=== PATIENT | male | born 1945 | race African-American/Black ===

== ENCOUNTER 2020-03-18 16:14 | Inpatient (IN) | payer MEDICARE ==
[~2020-03-18] VITALS: Ht 182.9 cm; Wt 94.0 kg
--- NOTE | 2020-03-18 17:28 | PHYS DOC ---
General Adult EDM: Chief Complaint: WEAKNESS/GENERALIZED HPI: HPI: 74-year-old male past medical history significant for hypertension, hyperlipidemia and former tobacco dependence (no official copd diagnosis, no oxygen or steroid use), presents to the ED with complaints of generalized weakness and dysuria for the past 2 days. Patient reports he tested positive for covid on February 22- with who also tested positive at an outpatient testing site. Patient reports he was retested this past week and it was negative. Last hospitalization was a few years ago for concussion, was transferred to [facility]. Denies any falls or head injury. Reports chronic midline back pain "for years." EMR diagnosis of secondary polycythemia -pt has not heard of this. Spoke with who states patient has fallen twice over the past few days and has been acting more lethargic, confused and not eating. No history of congestive heart failure. Review of systems: Denies associated fever, chills, cough, sore throat, dyspnea, chest pain/pressure/tightness, n/v/d/c, abdominal pain, hemoptysis, unilateral leg swelling, hematuria, flank pain, syncope, neck stiffness or headache. pmd-Mary Lou Murrell ([facility],BAKARI Garvey DO) Physical Exam: PE: Constitutional: hypotension, ill appearing HENT: Normocephalic, atraumatic, bilateral external ears normal, oropharynx dry, no oral exudates, nose normal. [] Eyes: EOMI, conjunctiva normal, no discharge. [] Neck: Normal range of motion, no tenderness, supple, no stridor. [] Cardiovascular: tachycardic-100 bpm, no murmur [] Lungs & Thorax: Bilateral breath sounds clear to auscultation [] moderate tachypnea with subcostal retractions Abdomen: Bowel sounds normal, soft, no tenderness, no masses, no pulsatile masses. [] fluid wave, coffee ground emesis Skin: Warm, dry, no erythema, no rash. [] Back: No tenderness, no CVA tenderness. [] Extremities: No tenderness, no cyanosis, no clubbing, ROM intact, no edema. [] Neurologic: Alert and oriented X 3-alert to my/month/year/situation, normal motor function, normal sensory function, no focal deficits noted. [] Psychologic: Affect normal, judgement normal, mood normal. [] ([facility],BAKARI M DO) EKG: EKG: nsr 92 bpm, QRS 146, right bundle branch block present, QTc 490, no T wave inversions, no ST elevations or ST depressions, left axis deviation (BAKARI MOYA DO) Radiology/Procedures: Radiology/Procedures: Indication: Vascular access Consent: The patient provided consent for this procedure. Procedure: The patient was positioned appropriately and the skin over the right internal jugular vein was prepped and draped in a sterile fashion. Local anesthesia was used. Ultrasound guidance utilized. A large bore needle was used to identify the vein. A guide wire was then inserted into the vein through the needle. A triple lumen catheter was then inserted into the vessel over the guide wire using the Seldinger technique. All ports showed good, free flowing blood return and were flushed with saline solution. The catheter was then securely fastened to the skin with sutures and covered with a sterile dressing. A post procedure X-ray was ordered. The patient tolerated the procedure well. Complications: none. [][] Critical care time was 45 minutes exclusive of procedures. Impression: Concern for right sided superimposed pneumonia in the setting of multiorgan failure and hypotension with coffee-ground emesis, started on PPI drip for upper GI bleeding. Central line placed. CT images pending-to eval for trauma vs pe (recent covid). Patient started on IV fluids and broad-spectrum antibiotics. Patient was allowed to Dr. Ness at shift change. (BAKARI MOYA DO) Course & Med Decision Making: Course & Med Decision Making Pertinent Labs and Imaging studies reviewed. (See chart for details) [] (BAKARI MOYA DO) Course & Med Decision Making Assumed care of patient at checkout. At checkout CT head, chest, abdomen, pelvis were pending and are negative. Patient is requiring Levophed. He appears to be in septic shock. He will be admitted for further care and evaluation to Dr. Hi (YASMANY NESS MD) Kiesha Disclaimer: Kiesha Disclaimer: This electronic medical record was generated, in whole or in part, using a voice recognition dictation system. (BAKARI MOYA DO) Departure Departure Impression: Primary Impression: Septic shock Additional Impression: Kidney failure Disposition: ADMITTED INPATIENT Condition: CRITICAL Referrals: MARY LOU HOYT MD (PCP) Justicifation of Admission Dx: Justifications for Admission: Justification of Admission Dx: Yes Aspiration Pneumonia: Hemodynamic Instability (BAKARI MOYA DO) Justification of Admission Dx: Yes (YASMANY NESS MD) BAKARI MOYA DO Mar 18, 2020 17:28 YASMANY NESS MD Mar 18, 2020 21:29
[2020-03-18] MEDS ORDERED: cefTRIAXone IV Push 1 GM VIAL. IVP ONE (17:30)
[2020-03-18] MEDS ORDERED: IV NORMAL SALINE 1000ML BAG 1,000 ML IV ONE ×3 (17:30→17:45)
[2020-03-18] MEDS ORDERED: PIPERACILLIN/TAZOBACTAM 4.5 GM in IV NORMAL SALINE 100ML 100 ML IV ONE (17:45)
[2020-03-18] MEDS ORDERED: VANCOMYCIN IV ONE (18:00)
[2020-03-18] MEDS ORDERED: NORMAL SALINE IV ONE (18:00)
[2020-03-18 18:10] LABS: BASO % 0 % (0-3); EOS % 0 % (0-3); HEMATOCRIT 41.8 % (39.0-53.0); HEMOGLOBIN 14.1 g/dL (13.0-17.5); LYMPH % 6 % (24-48); MEAN CORPUSCULAR HEMOGLOBIN 34 pg (25-35); MEAN CORPUSCULAR HGB CONC 34 g/dL (31-37); MEAN CORPUSCULAR VOLUME 101 fL (79-100); MONO # 0.7 x10^3/uL (0.0-1.1); MONO % 4 % (0-9); NEUT # 15.7 x10^3/uL (1.8-7.7); NEUT % 90 % (31-73); PLATELET COUNT 204 x10^3/uL (140-400); RED BLOOD COUNT 4.13 x10^6/uL (4.30-5.70); RED CELL DISTRIBUTION WIDTH 15.1 % (11.5-14.5); WHITE BLOOD COUNT 17.5 x10^3/uL (4.0-11.0)
[2020-03-18 18:18] LABS: PROTHROMBIN TIME PATIENT 17.6 SEC (11.7-14.0)
[2020-03-18 18:34] LABS: CALCIUM 8.4 mg/dL (8.5-10.1); CREATININE 3.9 mg/dL (0.7-1.3); GFR 18.3; POTASSIUM 4.7 mmol/L (3.5-5.1)
[2020-03-18 18:39] LABS: ALBUMIN 2.1 g/dL (3.4-5.0); DIRECT BILIRUBIN 0.4 mg/dL (0.0-0.2); TOTAL BILIRUBIN 0.7 mg/dL (0.2-1.0)
[2020-03-18] MEDS ORDERED: PANTOPRAZOLE SODIUM IV DRIP 80 MG in IV NORMAL SALINE 100ML 100 ML IV SCH (18:45)
[2020-03-18] MEDS ORDERED: PANTOPRAZOLE IV PUSH 40 MG VIAL. IVP ONE (18:45)
[2020-03-18] MEDS ORDERED: VANCOMYCIN 2 GM in IV NORMAL SALINE 500ML BAG 500 ML IV ONE (18:45)
[2020-03-18] MEDS ORDERED: ONDANSETRON PF 4 MG/2 ML VIAL. IVP ONE (18:45)
[2020-03-18 18:50] LABS: % BANDS 5 % (0-9); % LYMPHS 4 % (24-48); % MONOS 2 % (0-10); % SEGS 89 % (35-66)
[2020-03-18 18:51] LABS: PLT ESTIMATE ADEQUATE (ADEQUATE); TOXIC VACUOLATION SLIGHT
--- NOTE | 2020-03-18 19:34 | RAD ---
Exam: Chest one view INDICATION: Weakness TECHNIQUE: Frontal view of the chest Comparisons: None FINDINGS: The cardiomediastinal silhouette and pulmonary vessels are within normal limits. Hazy opacity at the right lung base. No pleural effusion. IMPRESSION: Hazy opacity at the right lung base, may represent atelectasis versus developing consolidative process. Electronically signed by: Giuseppe Potts MD (03/18/2020 7:31 PM) [id number]
[2020-03-18] MEDS ORDERED: NOREPINEPHRINE VIAL 8 MG in IV DEXTROSE 5% 250 ML IV ONE (20:00)
--- NOTE | 2020-03-18 20:16 | RAD ---
CT HEAD WO CONTRAST History: Reason: fall / Spl. Instructions: / History: . Pain. Comparison: May 22, 2013 Technique: Noncontrast CT imaging was performed of the head. Exposure: One or more of the following individualized dose reduction techniques were utilized for this examination: 1. Automated exposure control 2. Adjustment of the mA and/or kV according to patient size 3. Use of iterative reconstruction technique. Findings: No intracranial hemorrhage. No mass effect. No hydrocephalus. Bilateral anterior inferior frontal encephalomalacia related to prior trauma. Additional foci of decreased attenuation within the hemispheric white matter, most often due to chronic microvascular ischemia. Imaged orbits are unremarkable. Imaged paranasal sinuses and mastoid air cells are clear. No acute calvarial fracture. Impression: 1. No acute intracranial abnormality. 2. Bilateral anterior inferior frontal encephalomalacia. Electronically signed by: Curtis Blanco DO (03/18/2020 8:13 PM) [facility]
--- NOTE | 2020-03-18 20:20 | RAD ---
Exam: CT of chest, abdomen and pelvis without contrast INDICATION: Weakness, back pain TECHNIQUE: Sequential axial images through the chest, abdomen and pelvis obtained without IV contrast. Sagittal and coronal reformatted images were reconstructed from the axial data and reviewed. Comparisons: Chest x-ray same day FINDINGS: Visualized portions of the thyroid are unremarkable. No enlarged mediastinal lymph nodes are identified. Heart size is normal. Trace pericardial effusion. Mild coronary artery calcifications. Thoracic aorta has a normal course and caliber. Pulmonary artery is not enlarged. Airways are patent. Mild bronchial wall thickening is noted. There is moderate to severe centrilobular emphysematous change noted predominantly at the upper lungs. No consolidation or pneumothorax. There are strandy opacities at the right lung base. No suspicious lung nodules. No pleural effusion or thickening. Evaluation of the solid abdominal organs is limited secondary to noncontrast technique. Liver, spleen, pancreas and adrenals are unremarkable. Gallbladder surgically absent. No perinephric inflammation or hydronephrosis. Nonobstructing 2 mm calculus at the mid left kidney. No ureteral calculi are identified. Bladder is decompressed not well evaluated. Prostate is not enlarged. Large and small bowel are unremarkable. Appendix is nonidentified. No free intra-abdominal air or fluid. No obstruction. Abdominal aorta has a normal course and caliber. No enlarged abdominal lymph nodes are identified. No suspicious osseous lesions or acute fractures. IMPRESSION: 1. No acute process identified within the chest, abdomen or pelvis. 2. Strandy opacities at the right lung base likely representing scarring or atelectasis. 3. Nephrolithiasis Exposure: One or more of the following in the visualized dose reduction techniques were utilized for this examination: 1. Automated exposure control 2. Adjustment of the MA and/or KV according to patient size 3. Use of iterative of reconstructive technique Electronically signed by: Giuseppe Potts MD (03/18/2020 8:17 PM) [id number]
[2020-03-19] VITALS (28 sets, daily range): BP systolic 73–117; BP diastolic 51–73
[2020-03-19] MEDS ORDERED: IV NORMAL SALINE 500ML BAG 500 ML IV ONE (01:00)
[2020-03-19] MEDS: IV NORMAL SALINE 1000ML BAG 1,000 ML IV SCH ×3 (01:27→21:13)
[2020-03-19] MEDS: NOREPINEPHRINE VIAL 8 MG in IV DEXTROSE 5% 250 ML IV PRN ×5 (02:08→22:06)
--- NOTE | 2020-03-19 02:21 | EKG ---
[facility] [address] [place] [address] Test Date: 2020-03-19 Test Time: 02:12:47 Pat Name: YURI WILLAMS Department: Room: 108 1 Gender: M [employer]ard Mixer: JAVIER : 1945 Requested By: HARMAN CALIXTO Order Number: [id number] Reading MD: Measurements Intervals [place] Rate: 79 P: 90 MI: 200 QRS: -80 QRSD: 86 T: 74 QT: 428 QTc: 492 Interpretive Statements SINUS RHYTHM ATRIAL PREMATURE COMPLEX(ES) ABNORMAL LEFT AXIS DEVIATION R-S TRANSITION ZONE IN V LEADS DISPLACED TO THE RIGHT LEFT ANTERIOR FASCICULAR BLOCK QRS(T) CONTOUR ABNORMALITY CONSIDER ANTEROSEPTAL MYOCARDIAL DAMAGE T ABNORMALITY IN HIGH LATERAL LEADS PROLONGED QT ABNORMAL ECG RI6.02 No previous ECG available for comparison
--- NOTE | 2020-03-19 02:50 | NUR ---
Patient arrived to ICU room 108 from the ED. Report received from PATRICIA Mckeon from the ED. Upon arrival patient is alert and oriented. Poor historian of current and pmhx but answers questions appropriately. Unable to clarify dates of positive covid test. States he has taken several but unable to remember dates. called and stated last result on February 22 was positive and was off of quarantine on March 11. No hospital admit. 3 days ago patient began having some generalized weakness and poor appetite. Denies recent fevers and afebrile at this time. No complaint of pain or soa. IVFB and abx given in ED. Levophed and protonix drip infusing. No urine output on and prior to admit. Bladder scan in ICU had [address] Hi notified of admit and patient condition. Orders received. Consult for ID. Will continue to monitor.
[2020-03-19 03:54] LABS: HEMATOCRIT 38.1 % (39.0-53.0); HEMOGLOBIN 12.8 g/dL (13.0-17.5); RED BLOOD COUNT 3.78 x10^6/uL (4.30-5.70); RED CELL DISTRIBUTION WIDTH 15.2 % (11.5-14.5); WHITE BLOOD COUNT 19.7 x10^3/uL (4.0-11.0)
[2020-03-19 04:04] LABS: CALCIUM 7.5 mg/dL (8.5-10.1); CREATININE 3.3 mg/dL (0.7-1.3); GFR 22.2; POTASSIUM 4.5 mmol/L (3.5-5.1)
[2020-03-19 04:15] LABS: BILIRUBIN,URINE SMALL (NEG); CLARITY,URINE CLOUDY; COLOR,URINE AMBER; NITRITE,URINE NEGATIVE (NEG); PROTEIN,URINE 100 mg/dL (NEG-TRACE); UROBILINOGEN,URINE 0.2 mg/dL (0.2 mg/dL)
[2020-03-19 04:30] LABS: AMORPHOUS SEDIMENT,UR PRESENT /HPF; BACTERIA,URINE 0 /HPF (0-FEW); GRANULAR CASTS,URINE OCCASIONAL /HPF; HYALINE CASTS, URINE FEW /HPF; RBC,URINE OCC /HPF (0-2); SQUAMOUS EPITHELIAL CELL,UR FEW /LPF
--- NOTE | 2020-03-19 07:20 | PDOC ---
Infectious Disease Note Vital Sign Vital Signs Vital Signs Date Time Temp Pulse Resp B/P (MAP) Pulse Ox O2 Delivery O2 Flow Rate FiO2 03/19/20 06:00 82 14 92/65 (74) 98 Room Air 03/19/20 04:00 97.7 97.7 Labs Lab Laboratory Tests Test 03/18/20 17:50 03/18/20 21:40 03/19/20 03:15 03/19/20 03:45 White Blood Count 17.5 x10^3/uL (4.0-11.0) 19.7 x10^3/uL (4.0-11.0) Red Blood Count 4.13 x10^6/uL (4.30-5.70) 3.78 x10^6/uL (4.30-5.70) Hemoglobin 14.1 g/dL (13.0-17.5) 12.8 g/dL (13.0-17.5) Hematocrit 41.8 % (39.0-53.0) 38.1 % (39.0-53.0) Mean Corpuscular Volume 101 fL (79-100) 101 fL (79-100) Mean Corpuscular Hemoglobin 34 pg (25-35) 34 pg (25-35) Mean Corpuscular Hemoglobin Concent 34 g/dL (31-37) 34 g/dL (31-37) Red Cell Distribution Width 15.1 % (11.5-14.5) 15.2 % (11.5-14.5) Platelet Count 204 x10^3/uL (140-400) 222 x10^3/uL (140-400) Neutrophils (%) (Auto) 90 % (31-73) Lymphocytes (%) (Auto) 6 % (24-48) Monocytes (%) (Auto) 4 % (0-9) Eosinophils (%) (Auto) 0 % (0-3) Basophils (%) (Auto) 0 % (0-3) Neutrophils # (Auto) 15.7 x10^3/uL (1.8-7.7) Lymphocytes # (Auto) 1.0 x10^3/uL (1.0-4.8) Monocytes # (Auto) 0.7 x10^3/uL (0.0-1.1) Eosinophils # (Auto) 0.0 x10^3/uL (0.0-0.7) Basophils # (Auto) 0.0 x10^3/uL (0.0-0.2) Segmented Neutrophils % 89 % (35-66) Band Neutrophils % 5 % (0-9) Lymphocytes % 4 % (24-48) Monocytes % 2 % (0-10) Toxic Vacuolation Slight Platelet Estimate Adequate (ADEQUATE) Prothrombin Time 17.6 SEC (11.7-14.0) Prothromb Time International Ratio 1.5 (0.8-1.1) Activated Partial Thromboplast Time 47 SEC (24-38) Sodium Level 134 mmol/L (136-145) 134 mmol/L (136-145) Potassium Level 4.7 mmol/L (3.5-5.1) 4.5 mmol/L (3.5-5.1) Chloride Level 97 mmol/L (98-107) 102 mmol/L (98-107) Carbon Dioxide Level 22 mmol/L (21-32) 20 mmol/L (21-32) Anion Gap 15 (6-14) 12 (6-14) Blood Urea Nitrogen 40 mg/dL (8-26) 43 mg/dL (8-26) Creatinine 3.9 mg/dL (0.7-1.3) 3.3 mg/dL (0.7-1.3) Estimated GFR (Cockcroft-Gault) 18.3 22.2 Glucose Level 188 mg/dL (70-99) 218 mg/dL (70-99) Lactic Acid Level 4.6 mmol/L (0.4-2.0) 3.5 mmol/L (0.4-2.0) Calcium Level 8.4 mg/dL (8.5-10.1) 7.5 mg/dL (8.5-10.1) Magnesium Level 2.0 mg/dL (1.8-2.4) 2.0 mg/dL (1.8-2.4) Total Bilirubin 0.7 mg/dL (0.2-1.0) Direct Bilirubin 0.4 mg/dL (0.0-0.2) Aspartate Amino Transf (AST/SGOT) 50 U/L (15-37) Alanine Aminotransferase (ALT/SGPT) 58 U/L (16-63) Alkaline Phosphatase 63 U/L (46-116) Creatine Kinase 382 U/L (39-308) Troponin I Quantitative 0.398 ng/mL (0.000-0.055) 1.273 ng/mL (0.000-0.055) XS-Gff-O-Type Natriuretic Peptide 37401 pg/mL (0-449) Total Protein 6.0 g/dL (6.4-8.2) Albumin 2.1 g/dL (3.4-5.0) Urine Collection Type Unknown Urine Color Viktoriya Urine Clarity Cloudy Urine pH 5.0 (<5.0-8.0) Urine Specific [place] 1.025 (1.000-1.030) Urine Protein 100 mg/dL (NEG-TRACE) Urine Glucose (UA) Negative mg/dL (NEG) Urine Ketones (Stick) Negative mg/dL (NEG) Urine Blood Trace (NEG) Urine Nitrite Negative (NEG) Urine Bilirubin Small (NEG) Urine Urobilinogen Dipstick 0.2 mg/dL (0.2 mg/dL) Urine Leukocyte Esterase Negative (NEG) Urine RBC Occ /HPF (0-2) Urine WBC 5-10 /HPF (0-4) Urine Squamous Epithelial Cells Few /LPF Urine Amorphous Sediment Present /HPF Urine Bacteria 0 /HPF (0-FEW) Urine Hyaline Casts Few /HPF Urine Granular Casts Occasional /HPF Urine Mucus Mod /LPF Micro IMPRESSION: Hazy opacity at the right lung base, may represent atelectasis versus developing consolidative process. IMPRESSION: 1. No acute process identified within the chest, abdomen or pelvis. 2. Strandy opacities at the right lung base likely representing scarring or atelectasis. 3. Nephrolithiasis Objective Assessment Hypotension Leukocytosis Elevated Troponin Right lung infiltrate CRAIG Coffee ground emesis COVID by report 02/22 with completed quarantine 03/11 reported neg since Neuropathy Plan Plan of Care Cont Zosyn Add Doxy Hold further Vanc Add Procalcitonin Renal consult/GI consult Cardiology consulted LE arterial dopplers F/u labs and cults D/w nursing 35 mins CC time Thank you # [phone] Addendum Nursing now reporting some confusion about when negative test was obtained ER states post quarantine but thought maybe prior to + test so will repeat COVID test ONEYDA JENSEN MD Mar 19, 2020 07:20
[2020-03-19] MEDS: PIPERACILLIN/TAZOBACTAM 2.25 GM in IV NORMAL SALINE 50ML 50 ML IV SCH ×3 (07:50→17:28)
[2020-03-19] MEDS: PANTOPRAZOLE IV PUSH 40 MG VIAL. IVP SCH (07:50)
--- NOTE | 2020-03-19 08:05 | CONS ---
DATE OF CONSULTATION: 03/19/2020 INFECTIOUS DISEASE CONSULTATION PATIENT'S ROOM: ICU 8. REQUESTING PHYSICIAN: Joyce Hi DO REASON FOR CONSULTATION: Questionable sepsis and leukocytosis. HISTORY OF PRESENT ILLNESS: The patient is a pleasant 74-year-old gentleman with a history of tobacco abuse, recently reportedly tested positive for COVID on 02/22 and discontinued quarantine on the . There is question whether he has had a negative test since that time. He states for 2 or 3 days, he has been having sweats, decreased appetite and decreased urine output and presented to [facility] Emergency Room on the evening of the with weakness. Additionally, according to nurse, states that he has fallen. He has been afebrile since his presentation. He had a temperature of 99.6 rectally, but had a blood pressure 66/31 on arrival. Additionally, he states after his stomach was palpated, he felt nauseated and vomited and had blood in his vomit. His creatinine was 3.9 on arrival. His BNP was 27,958. His lactic was elevated at 4.6. His troponin has increased to 1.273. Chest x-ray was pertained and showed a hazy opacity at the right lung base. CT scan of the head showed no acute intracranial abnormality. CT scan of the abdomen and pelvis without contrast showed no acute process identified within the chest, abdomen and pelvis, but he did have some stranding opacities at the right lung base likely representing scar or atelectasis and he had nephrolithiasis. He was given one dose of vancomycin, a dose of Zosyn and has been admitted to the Intensive Care Unit. Currently, he is lying in bed. He is feeling better. He has no fevers or chills. He denies any headaches. He has no sinus issues. No sore throat or cough. Denies any chest pain. Denies any reflux. Denies any abdominal pain per se. Did have decreased urine output, but finally made some urine. He has had no diarrhea, but he is a little bit constipated. Also, some neuropathy in his lower extremities has been present for quite some time. Denies any rashes or itches. PAST MEDICAL HISTORY: Positive for hypertension, hypercholesterolemia, neuropathy, also a question of some polycythemia. PAST SURGICAL HISTORY: Positive for cholecystectomy, appendectomy and double hernia repair. REVIEW OF SYSTEMS: Otherwise negative. ALLERGIES: No known drug allergies. SOCIAL HISTORY: He is still smoking. He is . He has no pets. 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 He does have 2 sons. One is a physician in [place]. FAMILY HISTORY: Noncontributory. CURRENT MEDICATIONS: Levophed has been ordered. He did receive Zosyn, vancomycin x 1, pantoprazole x 1. PHYSICAL EXAMINATION: VITAL SIGNS: Temperature currently 97.7, pulse 82, respirations 14, blood pressure 92/65, satting 98% on room air. CONSTITUTIONAL: He is a very pleasant gentleman. He is cooperative. He is lying. He is comfortable. He is answering questions. HEENT: Pupils equal and reactive, but appears as early cataracts. He has normal conjunctivae. Oral cavity, pharynx was clear. NECK: Supple, with no JVD. LUNGS: Clear to auscultation, no wheeze. HEART: S1, S2. ABDOMEN: Soft, no guarding, no rebound. Positive but decreased bowel sounds. EXTREMITIES: No clubbing, no edema. His extremities were cool to touch with decreased pulses bilaterally. SKIN: Warm to touch without generalized rash. NEUROLOGIC: Nonfocal, answering questions. Moves all extremities. PSYCHIATRIC: Affect is very pleasant. LABORATORY DATA: On arrival, white count was 17.5, currently is 19.7; hemoglobin of 12.8, down from 14.1; platelets of 222. Segs were 89, bands were 5. Creatinine is improved to 3.3. Glucose of 218. Lactic acid down to 3.5. Again, troponin of 1.273. AST was 50, ALT 58, alkaline phosphatase was 63. BNP-pro was reviewed in the history of present illness. Urinalysis without bacteria, 5-10 wbc's, nitrite and leukocyte esterase were negative. RADIOLOGY: Reviewed in the history of present illness. IMPRESSION: 1. Hypotension. 2. Leukocytosis. 3. Elevated troponin. 4. Right lung infiltrate. 5. Acute kidney injury. 6. Coffee-ground emesis. 7. History of COVID by report on 02/22 with completed quarantine and reported negative test since then. 8. Neuropathy. RECOMMENDATIONS: We will continue the Zosyn, but adjust for renal function. We will add doxycycline and hold further vancomycin, add a procalcitonin, although expected to be elevated with his renal failure. We will consult Renal as well as GI. This morning, Cardiology has been consulted. We will also obtain lower extremity Dopplers given his cool extremities and decreased pulses. Follow up labs and cultures. This was discussed with nursing. I spent 35 minutes critical care time. Dr. Hi, thank you for allowing me to participate in the patient's care. If you have any further questions, please do not hesitate to contact me. ONEYDA JENSEN MD DR: MIKE/brett JOB#: [id number] / [id number] MICHAEL
--- NOTE | 2020-03-19 08:36 | PDOC1 ---
History and Physical Date of Admission: Date of Admission DATE: 03/19/20 TIME: 08:25 Chief Complaint: Chief Complain: Generalized weakness History of Present Illness: HPI: Patient is a 74-year-old male with past medical history of hypertension, dyslipidemia, CAD with stents and history of tobacco dependence. He presents to the ED with complaints of generalized weakness for the past 2 days. Patient originally tested positive for COVID on February 22 and he remained quarantined for 2 weeks after with his who also was tested positive. Patient was retested this past week and it was negative. Patient's also stated that the patient has fallen twice in the past few days and has been appearing more lethargic, confused, and with loss of appetite. Patient also endorses vomiting some blood denies chest pain, abdominal pain, diarrhea, loss of smell, dysuria or bloody stools. Past Medical/Surgical History: PMH/PSH: Past Medical History * High Cholesterol * Hypertension Allergies: Allergies: Coded Allergies: No Known Drug Allergies (Unverified , 03/18/20) Family History: Family History: Reviewed and none reported Social History: Social History: He is still smoking. He is . He has no pets. 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 He does have 2 sons. One is a physician in [place]. Current Medications: Current Medications Current Medications Ceftriaxone Sodium (Rocephin) 1 gm 1X ONCE IVP ; Start 03/18/20 at 17:30; Stop 03/18/20 at 17:46; Status DC Sodium Chloride 1,000 ml @ 1,000 mls/hr 1X ONCE IV Last administered on 03/18/20at 17:35; Start 03/18/20 at 17:30; Stop 03/18/20 at 18:29; Status DC Sodium Chloride 1,000 ml @ 1,000 mls/hr 1X ONCE IV Last administered on 03/18/20at 18:04; Start 03/18/20 at 17:45; Stop 03/18/20 at 18:44; Status DC Sodium Chloride 1,000 ml @ 1,000 mls/hr 1X ONCE IV Last administered on 03/18/20at 18:05; Start 03/18/20 at 17:45; Stop 03/18/20 at 18:44; Status DC Piperacillin Sod/ Tazobactam Sod 4.5 gm/Sodium Chloride 100 ml @ 200 mls/hr 1X ONCE IV Last administered on 03/18/20at 18:10; Start 03/18/20 at 17:45; Stop 03/18/20 at 18:14; Status DC Vancomycin HCl 2.25 gm/Sodium Chloride 500 ml @ 250 mls/hr 1X ONCE IV ; Start 03/18/20 at 18:00; Stop 03/18/20 at 19:59; Status UNV Vancomycin HCl 2 gm/Sodium Chloride 500 ml @ 250 mls/hr 1X ONCE IV Last administered on 03/18/20at 18:11; Start 03/18/20 at 18:45; Stop 03/18/20 at 20:44; Status DC Ondansetron HCl (Zofran) 8 mg 1X ONCE IVP ; Start 03/18/20 at 18:45; Stop 03/18/20 at 18:46; Status DC Pantoprazole Sodium (PROTONIX VIAL for IV PUSH) 80 mg 1X ONCE IVP Last administered on 03/18/20at 18:42; Start 03/18/20 at 18:45; Stop 03/18/20 at 18:46; Status DC Pantoprazole Sodium 80 mg/ Sodium Chloride 100 ml @ 10 mls/hr Q10H IV Last administered on 03/18/20at 19:20; Start 03/18/20 at 18:45; Stop 03/19/20 at 01:30; Status DC Norepinephrine Bitartrate 8 mg/ Dextrose 258 ml @ 17.609 mls/ hr 1X ONCE IV ; Start 03/18/20 at 20:00; Stop 03/19/20 at 10:39 Sodium Chloride 1,000 ml @ 100 mls/hr Q10H IV Last administered on 03/19/20at 01:27; Start 03/19/20 at 02:00 Norepinephrine Bitartrate 8 mg/ Dextrose 258 ml @ 17.609 mls/ hr CONT PRN IV PER PROTOCOL Last administered on 03/19/20at 07:52; Start 03/19/20 at 01:00 Sodium Chloride 500 ml @ 500 mls/hr 1X ONCE IV Last administered on 03/19/20at 01:26; Start 03/19/20 at 01:00; Stop 03/19/20 at 01:59; Status DC Pantoprazole Sodium (PROTONIX VIAL for IV PUSH) 40 mg DAILYAC IVP Last administered on 03/19/20at 07:50; Start 03/19/20 at 07:30 Piperacillin Sod/ Tazobactam Sod 2.25 gm/Sodium Chloride 50 ml @ 100 mls/hr Q6HRS IV Last administered on 03/19/20at 07:50; Start 03/19/20 at 07:00 Doxycycline Hyclate 100 mg/ Dextrose 100 ml @ 50 mls/hr Q12HR IV ; Start 03/19/20 at 09:00 ROS: Review of Systems Review of System REVIEW OF SYSTEMS: GENERAL: Denies weakness SKIN: No bruising, hair changes or rashes. EYES: No blurred, double or loss of vision. NOSE AND THROAT: No history of nosebleeds, hoarseness or sore throat. HEART: No history of palpitations, chest pain or shortness of breath on exertion. LUNGS: Denies cough, hemoptysis, wheezing or shortness of breath. GASTROINTESTINAL: Denies changes in appetite, nausea, vomiting, diarrhea or constipation. GENITOURINARY: No history of frequency, urgency, hesitancy or nocturia. NEUROLOGIC: Denies history of numbness, tingling, or tremor. PSYCHIATRIC: No history of panic, anxiety or depression. ENDOCRINE: No history of heat or cold intolerance, polyuria or polydipsia. EXTREMITIES: Denies joint pain, pain on walking or stiffness. Physical Exam: Vital Signs: Vital Signs Date Time Temp Pulse Resp B/P (MAP) Pulse Ox O2 Delivery O2 Flow Rate FiO2 03/19/20 07:00 82 16 117/73 (88) 99 Room Air 03/19/20 04:00 97.7 97.7 Physcial Exam: GEN: No apparent distress. Alert and oriented HEENT: Normal cephalic, atraumatic, external auditory canals are patent EYES: Extraocular muscles are intact, pupil are equally round and reactive to light and accommodation MUSCULOSKELETAL: Well developed , well nourished, good range of motion ENDOCRINE: No thyromegaly was palpated LYMPHATICS: No cervical chain or axillary nodes were noted HEMATOPOIETIC: No bruising NECK: Supple, no JVD, no thyromegaly was noted LUNGS: Clear to auscultation in all lung smith without rhonchi or wheezing HEART: RRR, S!, S2 present. Peripheral pulses intact, no obvious murmurs noted ABDOMEN: Soft, nontender. Positive bowel sounds, no organomegaly, normal bowel sounds EXTREMITIES: Without clubbing, cyanosis, or edema. Pedal pulses intact. Negative Homans sign NEUROLOGIC: Normal speech and tone. A&O x 3, moves all extremities, no obvious focal deficits PSYCHIATRIC: Normal affect, normal mood. Stable SKIN: No ulcerations or rashes, good skin turgor, no jaundice VASCULAR: Good capillary refill, neurovascular bundle appears to be intact Labs: Labs: Laboratory Tests Test 03/18/20 17:50 03/18/20 21:40 03/19/20 03:15 03/19/20 03:45 White Blood Count 17.5 x10^3/uL (4.0-11.0) 19.7 x10^3/uL (4.0-11.0) Red Blood Count 4.13 x10^6/uL (4.30-5.70) 3.78 x10^6/uL (4.30-5.70) Hemoglobin 14.1 g/dL (13.0-17.5) 12.8 g/dL (13.0-17.5) Hematocrit 41.8 % (39.0-53.0) 38.1 % (39.0-53.0) Mean Corpuscular Volume 101 fL (79-100) 101 fL (79-100) Mean Corpuscular Hemoglobin 34 pg (25-35) 34 pg (25-35) Mean Corpuscular Hemoglobin Concent 34 g/dL (31-37) 34 g/dL (31-37) Red Cell Distribution Width 15.1 % (11.5-14.5) 15.2 % (11.5-14.5) Platelet Count 204 x10^3/uL (140-400) 222 x10^3/uL (140-400) Neutrophils (%) (Auto) 90 % (31-73) Lymphocytes (%) (Auto) 6 % (24-48) Monocytes (%) (Auto) 4 % (0-9) Eosinophils (%) (Auto) 0 % (0-3) Basophils (%) (Auto) 0 % (0-3) Neutrophils # (Auto) 15.7 x10^3/uL (1.8-7.7) Lymphocytes # (Auto) 1.0 x10^3/uL (1.0-4.8) Monocytes # (Auto) 0.7 x10^3/uL (0.0-1.1) Eosinophils # (Auto) 0.0 x10^3/uL (0.0-0.7) Basophils # (Auto) 0.0 x10^3/uL (0.0-0.2) Segmented Neutrophils % 89 % (35-66) Band Neutrophils % 5 % (0-9) Lymphocytes % 4 % (24-48) Monocytes % 2 % (0-10) Toxic Vacuolation Slight Platelet Estimate Adequate (ADEQUATE) Prothrombin Time 17.6 SEC (11.7-14.0) Prothromb Time International Ratio 1.5 (0.8-1.1) Activated Partial Thromboplast Time 47 SEC (24-38) Sodium Level 134 mmol/L (136-145) 134 mmol/L (136-145) Potassium Level 4.7 mmol/L (3.5-5.1) 4.5 mmol/L (3.5-5.1) Chloride Level 97 mmol/L (98-107) 102 mmol/L (98-107) Carbon Dioxide Level 22 mmol/L (21-32) 20 mmol/L (21-32) Anion Gap 15 (6-14) 12 (6-14) Blood Urea Nitrogen 40 mg/dL (8-26) 43 mg/dL (8-26) Creatinine 3.9 mg/dL (0.7-1.3) 3.3 mg/dL (0.7-1.3) Estimated GFR (Cockcroft-Gault) 18.3 22.2 Glucose Level 188 mg/dL (70-99) 218 mg/dL (70-99) Lactic Acid Level 4.6 mmol/L (0.4-2.0) 3.5 mmol/L (0.4-2.0) Calcium Level 8.4 mg/dL (8.5-10.1) 7.5 mg/dL (8.5-10.1) Magnesium Level 2.0 mg/dL (1.8-2.4) 2.0 mg/dL (1.8-2.4) Total Bilirubin 0.7 mg/dL (0.2-1.0) Direct Bilirubin 0.4 mg/dL (0.0-0.2) Aspartate Amino Transf (AST/SGOT) 50 U/L (15-37) Alanine Aminotransferase (ALT/SGPT) 58 U/L (16-63) Alkaline Phosphatase 63 U/L (46-116) Creatine Kinase 382 U/L (39-308) Troponin I Quantitative 0.398 ng/mL (0.000-0.055) 1.273 ng/mL (0.000-0.055) VX-Hpl-K-Type Natriuretic Peptide 92967 pg/mL (0-449) Total Protein 6.0 g/dL (6.4-8.2) Albumin 2.1 g/dL (3.4-5.0) Procalcitonin 14.64 ng/mL (0.00-0.10) Urine Collection Type Unknown Urine Color Viktoriya Urine Clarity Cloudy Urine pH 5.0 (<5.0-8.0) Urine Specific [place] 1.025 (1.000-1.030) Urine Protein 100 mg/dL (NEG-TRACE) Urine Glucose (UA) Negative mg/dL (NEG) Urine Ketones (Stick) Negative mg/dL (NEG) Urine Blood Trace (NEG) Urine Nitrite Negative (NEG) Urine Bilirubin Small (NEG) Urine Urobilinogen Dipstick 0.2 mg/dL (0.2 mg/dL) Urine Leukocyte Esterase Negative (NEG) Urine RBC Occ /HPF (0-2) Urine WBC 5-10 /HPF (0-4) Urine Squamous Epithelial Cells Few /LPF Urine Amorphous Sediment Present /HPF Urine Bacteria 0 /HPF (0-FEW) Urine Hyaline Casts Few /HPF Urine Granular Casts Occasional /HPF Urine Mucus Mod /LPF Laboratory Tests Test 03/18/20 17:50 03/18/20 21:40 03/19/20 03:15 03/19/20 03:45 White Blood Count 17.5 x10^3/uL (4.0-11.0) 19.7 x10^3/uL (4.0-11.0) Red Blood Count 4.13 x10^6/uL (4.30-5.70) 3.78 x10^6/uL (4.30-5.70) Hemoglobin 14.1 g/dL (13.0-17.5) 12.8 g/dL (13.0-17.5) Hematocrit 41.8 % (39.0-53.0) 38.1 % (39.0-53.0) Mean Corpuscular Volume 101 fL (79-100) 101 fL (79-100) Mean Corpuscular Hemoglobin 34 pg (25-35) 34 pg (25-35) Mean Corpuscular Hemoglobin Concent 34 g/dL (31-37) 34 g/dL (31-37) Red Cell Distribution Width 15.1 % (11.5-14.5) 15.2 % (11.5-14.5) Platelet Count 204 x10^3/uL (140-400) 222 x10^3/uL (140-400) Neutrophils (%) (Auto) 90 % (31-73) Lymphocytes (%) (Auto) 6 % (24-48) Monocytes (%) (Auto) 4 % (0-9) Eosinophils (%) (Auto) 0 % (0-3) Basophils (%) (Auto) 0 % (0-3) Neutrophils # (Auto) 15.7 x10^3/uL (1.8-7.7) Lymphocytes # (Auto) 1.0 x10^3/uL (1.0-4.8) Monocytes # (Auto) 0.7 x10^3/uL (0.0-1.1) Eosinophils # (Auto) 0.0 x10^3/uL (0.0-0.7) Basophils # (Auto) 0.0 x10^3/uL (0.0-0.2) Segmented Neutrophils % 89 % (35-66) Band Neutrophils % 5 % (0-9) Lymphocytes % 4 % (24-48) Monocytes % 2 % (0-10) Toxic Vacuolation Slight Platelet Estimate Adequate (ADEQUATE) Prothrombin Time 17.6 SEC (11.7-14.0) Prothromb Time International Ratio 1.5 (0.8-1.1) Activated Partial Thromboplast Time 47 SEC (24-38) Sodium Level 134 mmol/L (136-145) 134 mmol/L (136-145) Potassium Level 4.7 mmol/L (3.5-5.1) 4.5 mmol/L (3.5-5.1) Chloride Level 97 mmol/L (98-107) 102 mmol/L (98-107) Carbon Dioxide Level 22 mmol/L (21-32) 20 mmol/L (21-32) Anion Gap 15 (6-14) 12 (6-14) Blood Urea Nitrogen 40 mg/dL (8-26) 43 mg/dL (8-26) Creatinine 3.9 mg/dL (0.7-1.3) 3.3 mg/dL (0.7-1.3) Estimated GFR (Cockcroft-Gault) 18.3 22.2 Glucose Level 188 mg/dL (70-99) 218 mg/dL (70-99) Lactic Acid Level 4.6 mmol/L (0.4-2.0) 3.5 mmol/L (0.4-2.0) Calcium Level 8.4 mg/dL (8.5-10.1) 7.5 mg/dL (8.5-10.1) Magnesium Level 2.0 mg/dL (1.8-2.4) 2.0 mg/dL (1.8-2.4) Total Bilirubin 0.7 mg/dL (0.2-1.0) Direct Bilirubin 0.4 mg/dL (0.0-0.2) Aspartate Amino Transf (AST/SGOT) 50 U/L (15-37) Alanine Aminotransferase (ALT/SGPT) 58 U/L (16-63) Alkaline Phosphatase 63 U/L (46-116) Creatine Kinase 382 U/L (39-308) Troponin I Quantitative 0.398 ng/mL (0.000-0.055) 1.273 ng/mL (0.000-0.055) FR-Gil-S-Type Natriuretic Peptide 26117 pg/mL (0-449) Total Protein 6.0 g/dL (6.4-8.2) Albumin 2.1 g/dL (3.4-5.0) Procalcitonin 14.64 ng/mL (0.00-0.10) Urine Collection Type Unknown Urine Color Viktoriya Urine Clarity Cloudy Urine pH 5.0 (<5.0-8.0) Urine Specific [place] 1.025 (1.000-1.030) Urine Protein 100 mg/dL (NEG-TRACE) Urine Glucose (UA) Negative mg/dL (NEG) Urine Ketones (Stick) Negative mg/dL (NEG) Urine Blood Trace (NEG) Urine Nitrite Negative (NEG) Urine Bilirubin Small (NEG) Urine Urobilinogen Dipstick 0.2 mg/dL (0.2 mg/dL) Urine Leukocyte Esterase Negative (NEG) Urine RBC Occ /HPF (0-2) Urine WBC 5-10 /HPF (0-4) Urine Squamous Epithelial Cells Few /LPF Urine Amorphous Sediment Present /HPF Urine Bacteria 0 /HPF (0-FEW) Urine Hyaline Casts Few /HPF Urine Granular Casts Occasional /HPF Urine Mucus Mod /LPF Images: Images All labs, images, and reports were reviewed by me personally CT HEAD Impression: 1. No acute intracranial abnormality. 2. Bilateral anterior inferior frontal encephalomalacia. CT ABD/Pelvis IMPRESSION: 1. No acute process identified within the chest, abdomen or pelvis. 2. Strandy opacities at the right lung base likely representing scarring or atelectasis. 3. Nephrolithiasis CXR IMPRESSION: Hazy opacity at the right lung base, may represent atelectasis versus developing consolidative process. Assessment/Plan Assessment/Plan Sepsis concerning for CAP Troponinemia concerning for an STEMI Hematemesis concerning for GI bleed Recent COVID positive infection CRAIG due to vasomotor nephropathy Hypertension Dyslipidemia Admit to ICU for pressors Cardiology consult, pending echo and trend troponins GI consult, consider EGD if continues to bleed despite PPI Nephrology consult Infectious disease consult, continue broad-spectrum antibiotics Follow-up with blood cultures Pending repeat COVID testing Continue IV fluids Contraindicated for DVT prophylaxis Protonix GI prophylaxis ADA diet Full code Discussed with RN and SW Dispo continue ICU care during vasopressor Surrogate decision maker is self Total critical time spent 35 minutes Justicifation of Admission Dx: Justifications for Admission: Justification of Admission Dx: Yes Aspiration Pneumonia: Hemodynamic Instability AYAKA RUIZ MD Mar 19, 2020 08:36
[2020-03-19] MEDS ORDERED: HEPARIN 25,000UTS/250ML PREMIX 250 ML IV PRN (08:45)
[2020-03-19] MEDS ORDERED: HEPARIN for IV BOLUS 10,000 UNIT/10 ML VIAL. IV PRN (08:45)
--- NOTE | 2020-03-19 08:47 | PDOC2 ---
JENNIFER GARCIA INTEGRATION TECHNICIAN 03/19/20 0847: CARDIAC CONSULT DATE OF CONSULT Date of Consult DATE: 03/19/20 TIME: 08:21 REASON FOR CONSULT Reason for Consult: Elevated troponin REFERRING PHYSICIAN Referring Physician: Sussy SOURCE Source: Chart review HISTORY OF PRESENT ILLNESS HISTORY OF PRESENT ILLNESS This is a 74 yo male admitted for complains of weakness and pain with urination in the last 2 days. He was + for Covid in February 22 and resides at home with spouse. He was tested negative for Covid x1 last week. He does not have chest pain or in any respiratory distress. He has been more fatigue lately and has p eriods of confusion and has had some falls recently. He has not been feeling good and has not been drinking well at home. Denies any chest pain, passing out when he fell and no SOA. He does see cardiology. 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) Musculoskeletal: Osteoarthritis PAST SURGICAL HISTORY Past Surgical History: Appendectomy, Cholecystectomy, Hernia Repair (inguinal x2), Other (PCI/stents to LAD 2008) FAMILY HISTORY Family History: Coronary Artery Disease (mother and brother) SOCIAL HISTORY Smoke: <1 pack per day ALCOHOL: none Drugs: None Lives: with Family (spouse) CURRENT MEDICATIONS CURRENT MEDICATIONS Current Medications Medications (Trade) Dose Ordered Sig/Abe Route PRN Reason Start Time Stop Time Status Last Admin Dose Admin Sodium Chloride 1,000 ml @ 1,000 mls/hr 1X ONCE IV 03/18/20 17:30 03/18/20 18:29 DC 03/18/20 17:35 Sodium Chloride 1,000 ml @ 1,000 mls/hr 1X ONCE IV 03/18/20 17:45 03/18/20 18:44 DC 03/18/20 18:04 Sodium Chloride 1,000 ml @ 1,000 mls/hr 1X ONCE IV 03/18/20 17:45 03/18/20 18:44 DC 03/18/20 18:05 Piperacillin Sod/ Tazobactam Sod 4.5 gm/Sodium Chloride 100 ml @ 200 mls/hr 1X ONCE IV 03/18/20 17:45 03/18/20 18:14 DC 03/18/20 18:10 Vancomycin HCl 2 gm/Sodium Chloride 500 ml @ 250 mls/hr 1X ONCE IV 03/18/20 18:45 03/18/20 20:44 DC 03/18/20 18:11 Pantoprazole Sodium (PROTONIX VIAL for IV PUSH) 80 mg 1X ONCE IVP 03/18/20 18:45 03/18/20 18:46 DC 03/18/20 18:42 Pantoprazole Sodium 80 mg/ Sodium Chloride 100 ml @ 10 mls/hr Q10H IV 03/18/20 18:45 03/19/20 01:30 DC 03/18/20 19:20 Sodium Chloride 1,000 ml @ 100 mls/hr Q10H IV 03/19/20 02:00 03/19/20 01:27 Norepinephrine Bitartrate 8 mg/ Dextrose 258 ml @ 17.609 mls/ hr CONT PRN IV PER PROTOCOL 03/19/20 01:00 03/19/20 07:52 Sodium Chloride 500 ml @ 500 mls/hr 1X ONCE IV 03/19/20 01:00 03/19/20 01:59 DC 03/19/20 01:26 Pantoprazole Sodium (PROTONIX VIAL for IV PUSH) 40 mg DAILYAC IVP 03/19/20 07:30 03/19/20 07:50 Piperacillin Sod/ Tazobactam Sod 2.25 gm/Sodium Chloride 50 ml @ 100 mls/hr Q6HRS IV 03/19/20 07:00 03/19/20 07:50 ALLERGIES ALLERGIES: Coded Allergies: No Known Drug Allergies (Unverified , 03/18/20) ROS Review of System 14 point ROS evaluated with pertinent positives noted per HPI PHYSICAL EXAM PHYSICAL EXAM Discussed with RN General: Alert, Oriented X3, Cooperative, No acute distress HEENT: Atraumatic, Mucous membr. moist/pink Lungs: Clear to auscultation, Normal air movement Heart: Regular rate (SR no significant ectopies) Abdomen: Soft Extremities: No cyanosis, No edema Skin: No breakdown, No significant lesion Neuro: Normal speech, Sensation intact Psych/Mental Status: Mental status NL, Mood NL MUSCULOSKELETAL: Osteoarthritic changes both hands VITALS/I&O VITALS/I&O: Vital Signs Date Time Temp Pulse Resp B/P (MAP) Pulse Ox O2 Delivery O2 Flow Rate FiO2 03/19/20 07:00 82 16 117/73 (88) 99 Room Air 03/19/20 04:00 97.7 97.7 I & O 03/18/20 03/18/20 03/19/20 15:00 23:00 07:00 Intake Total 3100 ml 933.7 ml Output Total 200 ml Balance 3100 ml 733.7 ml LABS Lab: Laboratory Tests Test 03/18/20 17:50 03/18/20 21:40 03/19/20 03:15 03/19/20 03:45 White Blood Count 17.5 x10^3/uL (4.0-11.0) H 19.7 x10^3/uL (4.0-11.0) H Red Blood Count 4.13 x10^6/uL (4.30-5.70) L 3.78 x10^6/uL (4.30-5.70) L Hemoglobin 14.1 g/dL (13.0-17.5) 12.8 g/dL (13.0-17.5) L Hematocrit 41.8 % (39.0-53.0) 38.1 % (39.0-53.0) L Mean Corpuscular Volume 101 fL (79-100) H 101 fL (79-100) H Mean Corpuscular Hemoglobin 34 pg (25-35) 34 pg (25-35) Mean Corpuscular Hemoglobin Concent 34 g/dL (31-37) 34 g/dL (31-37) Red Cell Distribution Width 15.1 % (11.5-14.5) H 15.2 % (11.5-14.5) H Platelet Count 204 x10^3/uL (140-400) 222 x10^3/uL (140-400) Neutrophils (%) (Auto) 90 % (31-73) H Lymphocytes (%) (Auto) 6 % (24-48) L Monocytes (%) (Auto) 4 % (0-9) Eosinophils (%) (Auto) 0 % (0-3) Basophils (%) (Auto) 0 % (0-3) Neutrophils # (Auto) 15.7 x10^3/uL (1.8-7.7) H Lymphocytes # (Auto) 1.0 x10^3/uL (1.0-4.8) Monocytes # (Auto) 0.7 x10^3/uL (0.0-1.1) Eosinophils # (Auto) 0.0 x10^3/uL (0.0-0.7) Basophils # (Auto) 0.0 x10^3/uL (0.0-0.2) Segmented Neutrophils % 89 % (35-66) H Band Neutrophils % 5 % (0-9) Lymphocytes % 4 % (24-48) L Monocytes % 2 % (0-10) Toxic Vacuolation Slight Platelet Estimate Adequate (ADEQUATE) Prothrombin Time 17.6 SEC (11.7-14.0) H Prothrombin Time INR 1.5 (0.8-1.1) H Activated Partial Thromboplast Time 47 SEC (24-38) H Sodium Level 134 mmol/L (136-145) L 134 mmol/L (136-145) L Potassium Level 4.7 mmol/L (3.5-5.1) 4.5 mmol/L (3.5-5.1) Chloride Level 97 mmol/L (98-107) L 102 mmol/L (98-107) Carbon Dioxide Level 22 mmol/L (21-32) 20 mmol/L (21-32) L Anion Gap 15 (6-14) H 12 (6-14) Blood Urea Nitrogen 40 mg/dL (8-26) H 43 mg/dL (8-26) H Creatinine 3.9 mg/dL (0.7-1.3) H 3.3 mg/dL (0.7-1.3) H Estimated GFR (Cockcroft-Gault) 18.3 22.2 Glucose Level 188 mg/dL (70-99) H 218 mg/dL (70-99) H Lactic Acid Level 4.6 mmol/L (0.4-2.0) *H 3.5 mmol/L (0.4-2.0) H Calcium Level 8.4 mg/dL (8.5-10.1) L 7.5 mg/dL (8.5-10.1) L Magnesium Level 2.0 mg/dL (1.8-2.4) 2.0 mg/dL (1.8-2.4) Total Bilirubin 0.7 mg/dL (0.2-1.0) Direct Bilirubin 0.4 mg/dL (0.0-0.2) H Aspartate Amino Transferase (AST) 50 U/L (15-37) H Alanine Aminotransferase (ALT) 58 U/L (16-63) Alkaline Phosphatase 63 U/L (46-116) Creatine Kinase 382 U/L (39-308) H Troponin I Quantitative 0.398 ng/mL (0.000-0.055) 1.273 ng/mL (0.000-0.055) EQ-Xxa-A-Type Natriuretic Peptide 71135 pg/mL (0-449) H Total Protein 6.0 g/dL (6.4-8.2) L Albumin 2.1 g/dL (3.4-5.0) L Procalcitonin 14.64 ng/mL (0.00-0.10) H Urine Collection Type Unknown Urine Color Viktoriya Urine Clarity Cloudy Urine pH 5.0 (<5.0-8.0) Urine Specific [place] 1.025 (1.000-1.030) Urine Protein 100 mg/dL (NEG-TRACE) Urine Glucose (UA) Negative mg/dL (NEG) Urine Ketones (Stick) Negative mg/dL (NEG) Urine Blood Trace (NEG) Urine Nitrite Negative (NEG) Urine Bilirubin Small (NEG) Urine Urobilinogen Dipstick 0.2 mg/dL (0.2 mg/dL) Urine Leukocyte Esterase Negative (NEG) Urine RBC Occ /HPF (0-2) Urine WBC 5-10 /HPF (0-4) Urine Squamous Epithelial Cells Few /LPF Urine Amorphous Sediment Present /HPF Urine Bacteria 0 /HPF (0-FEW) Urine Hyaline Casts Few /HPF Urine Granular Casts Occasional /HPF Urine Mucus Mod /LPF Laboratory Tests 03/18/20 17:50 03/19/20 03:15 Laboratory Tests 03/18/20 17:50 03/19/20 03:15 ECHOCARDIOGRAM ECHOCARDIOGRAM 03/28/2010 EF 60% with no significnat WM abnormalities nor valvular disease STRESS TEST STRESS TEST Interpretation Summary [facility] 07/2017 RESTING: * Normal left ventricular systolic function with an EF of 60%. * No regional wall motion abnormalities. * Normal diastolic function. Normal left atrial pressure * Normal right ventricular size and function * Inadequate tricuspid regurgitation signal, unable to accurately estimate PA systolic pressure with this study * No significant valvular disease identified. * No pericardial effusion STRESS: * No chest pain with exercise stress. * Poor exercise tolerance. * Maximal ECG exercise stress test per Que protocol which was negative for ischemia. * Frequent ventricular ectopy * No sustained dysrhythmias noted * Exercise echocardiogram which was negative for ischemia. NOTE: Abnormal baseline abnormal septal motion, RBBB, LAFB, frequent ventricular ectopy during exercise, and limited exercise workload 7 METS likely reduces the sensitivity of this study. HEART CATH HEART CATH [facility] HEMODYNAMICS: Aortic pressure was 135/80 mmHg, LV systolic pressure was 135 mmHg, LVEDP is 628 mmHg and no aortic valve gradient was seen on manual pullback. LEFT VENTRICULOGRAPHY: Left ventriculography was performed in the FARRIS position revealing a normal LV cavity size and a normal LV systolic function with an EF of 55 percent without any appreciable regional wall motion abnormality. No mitral valve regurgitation was seen and the visualized portions of the aortic valve and aortic root were within normal limits. RIGHT CORONARY ARTERY: The right coronary artery arises promptly from the right coronary cusp and is dominant giving rise to a medium-sized PDA branch and a very small PLV branch. The RCA, PDA and the small PLV are free from angiographically flow-limiting stenotic lesion. LEFT MAIN CORONARY ARTERY: The left main coronary artery arises promptly from the left coronary cusp. It is very short in length and of medium size and bifurcates into the left anterior descending artery and the left circumflex coronary artery. The left main is free from angiographically flow-limiting stenotic lesion. LEFT CIRCUMFLEX CORONARY ARTERY: The left circumflex coronary artery is nondominant giving rise to 3 large obtuse marginal branches. The first obtuse marginal branch bifurcates distally and the third obtuse marginal branch bifurcates proximally. The left circumflex and obtuse marginal branches are free from angiographically flow-limiting stenotic lesion. LEFT ANTERIOR DESCENDING ARTERY: The left anterior descending artery is of medium size and is of type [address] down to the apex. It has stents extending from its proximal part to its midportion after the first diagonal origin. Initially the LAD distally had some slow flow but after giving 200 mcg of intracoronary Cardene the flow improved and was FRANKLIN 3 distally. The LAD gives rise to a medium-sized diagonal branch in its midportion that bifurcates in its midportion. Then it gives rise to another small diagonal branch in its mid to distal part. The LAD and its diagonals are free from angiographically flow-limiting stenotic lesion. The stents are patent. ASSESSMENT: No evidence of significant obstructive atherosclerotic angiographic coronary artery disease. Patent proximal to mid LAD stents. No LV systolic function with an EF of 55 percent. Normal LVEDP. PLAN: Agree with medical therapy and aggressive risk factor modification. Dr. Mckeon was present throughout the whole procedure and supervised it. Ramiro Mckeon MD [facility] 08/10/2010 ASSESSMENT/PLAN ASSESSMENT/PLAN 1. Weakness/ nontraumatic mechanical fall: no syncope 2. Severe CRAIG with suspected rhabdomyolysis; poor intake lately with recent fall 3. Sepsis/shock with possible pneumonia 4. Recent Covid-19: +02/24/2020, reported neg test a week ago Retest pending 5. NSTEMI: possibly type 2 Trop at 1.2 with no acute changes to EKG with chronic RBBB. No CP 6. CAD: multiple stents to LAD 07/2009 7. Hx of secondary polycythemia with associated COPD/tobaccoism 8. HTN: hypotensive episodes 9. HLP 10. Abdominal pain/hematemesis; Hgb stable. GI consulted Recommendations 1. Sepsis protocol, ID following. 2. Will obtain TTE if covid negative 3. Hold home ACEi and toprol. Continue with ASA if ok with GI. IVF as tolerted. Pressor as warranted 4. Trend troponin 5. Smoking cessation 6. Supportive care. 7. Consider MPI as an outpt. LUISA DEAN MD 03/20/20 1049: CARDIAC CONSULT ASSESSMENT/PLAN ASSESSMENT/PLAN Late entry for 03/19/2020 Pt. seen and examined. Agree with above PLATE CLEANER note. Patient has LV dysfunction, RV dilation, likely sequelae of recent covid infection. Supportive care. Consider outpt ischemic evaluation and optimize medical therapy. Thanks JENNIFER GARCIA INTEGRATION TECHNICIAN Mar 19, 2020 08:47 LUISA DEAN MD Mar 20, 2020 10:49
--- NOTE | 2020-03-19 09:00 | NUR ---
At 0900 bladder scan showed 125ml. Patient urinated after the scan, output was 100.
[2020-03-19] MEDS: DOXYCYCLINE HYCLATE 100 MG in IV DEXTROSE 5% 100ML 100 ML IV SCH ×2 (09:13→21:13)
[2020-03-19 09:19] LABS: CHOLESTEROL/HDL RATIO 4.5
--- NOTE | 2020-03-19 09:25 | PDOC2 ---
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) Musculoskeletal: Osteoarthritis Past Surgical History Past Surgical History: Appendectomy, Cholecystectomy, Hernia Repair (inguinal x2), Other (PCID/stents to LAD 2008) Family History Family History: Coronary Artery Disease (mother and brother) Social History <1 pack per day ALCOHOL: none Drugs: None Lives: with Family (spouse) Current Problem List Problem List Problems Medical Problems: (1) Kidney failure Status: Acute (2) Septic shock Status: Acute Current Medications Current Medications Current Medications Ceftriaxone Sodium (Rocephin) 1 gm 1X ONCE IVP ; Start 03/18/20 at 17:30; Stop 03/18/20 at 17:46; Status DC Sodium Chloride 1,000 ml @ 1,000 mls/hr 1X ONCE IV Last administered on 03/18/20at 17:35; Start 03/18/20 at 17:30; Stop 03/18/20 at 18:29; Status DC Sodium Chloride 1,000 ml @ 1,000 mls/hr 1X ONCE IV Last administered on 03/18/20at 18:04; Start 03/18/20 at 17:45; Stop 03/18/20 at 18:44; Status DC Sodium Chloride 1,000 ml @ 1,000 mls/hr 1X ONCE IV Last administered on 03/18/20at 18:05; Start 03/18/20 at 17:45; Stop 03/18/20 at 18:44; Status DC Piperacillin Sod/ Tazobactam Sod 4.5 gm/Sodium Chloride 100 ml @ 200 mls/hr 1X ONCE IV Last administered on 03/18/20at 18:10; Start 03/18/20 at 17:45; Stop 03/18/20 at 18:14; Status DC Vancomycin HCl 2.25 gm/Sodium Chloride 500 ml @ 250 mls/hr 1X ONCE IV ; Start 03/18/20 at 18:00; Stop 03/18/20 at 19:59; Status UNV Vancomycin HCl 2 gm/Sodium Chloride 500 ml @ 250 mls/hr 1X ONCE IV Last administered on 03/18/20at 18:11; Start 03/18/20 at 18:45; Stop 03/18/20 at 20:44; Status DC Ondansetron HCl (Zofran) 8 mg 1X ONCE IVP ; Start 03/18/20 at 18:45; Stop 03/18/20 at 18:46; Status DC Pantoprazole Sodium (PROTONIX VIAL for IV PUSH) 80 mg 1X ONCE IVP Last administered on 03/18/20at 18:42; Start 03/18/20 at 18:45; Stop 03/18/20 at 18:46; Status DC Pantoprazole Sodium 80 mg/ Sodium Chloride 100 ml @ 10 mls/hr Q10H IV Last administered on 03/18/20at 19:20; Start 03/18/20 at 18:45; Stop 03/19/20 at 01:30; Status DC Norepinephrine Bitartrate 8 mg/ Dextrose 258 ml @ 17.609 mls/ hr 1X ONCE IV ; Start 03/18/20 at 20:00; Stop 03/19/20 at 10:39 Sodium Chloride 1,000 ml @ 100 mls/hr Q10H IV Last administered on 03/19/20at 01:27; Start 03/19/20 at 02:00 Norepinephrine Bitartrate 8 mg/ Dextrose 258 ml @ 17.609 mls/ hr CONT PRN IV PER PROTOCOL Last administered on 03/19/20at 07:52; Start 03/19/20 at 01:00 Sodium Chloride 500 ml @ 500 mls/hr 1X ONCE IV Last administered on 03/19/20at 01:26; Start 03/19/20 at 01:00; Stop 03/19/20 at 01:59; Status DC Pantoprazole Sodium (PROTONIX VIAL for IV PUSH) 40 mg DAILYAC IVP Last administered on 03/19/20at 07:50; Start 03/19/20 at 07:30 Piperacillin Sod/ Tazobactam Sod 2.25 gm/Sodium Chloride 50 ml @ 100 mls/hr Q6HRS IV Last administered on 03/19/20at 07:50; Start 03/19/20 at 07:00 Doxycycline Hyclate 100 mg/ Dextrose 100 ml @ 50 mls/hr Q12HR IV Last administered on 03/19/20at 09:13; Start 03/19/20 at 09:00 Aspirin (Ecotrin) 81 mg DAILYWBKFT PO ; Start 03/20/20 at 08:00 Heparin Sodium/ Dextrose 250 ml @ 0 mls/hr CONT PRN IV PER PROTOCOL; Start 03/19/20 at 08:45 Heparin Sodium (Porcine) (Heparin Sodium) 2,200 unit PRN Q6HRS PRN IV FOR UFH LEVEL LESS THAN 0.2; Start 03/19/20 at 08:45 Allergies Allergies: Coded Allergies: No Known Drug Allergies (Unverified , 03/18/20) Vitals VITALS Vital Signs Date Time Temp Pulse Resp B/P (MAP) Pulse Ox O2 Delivery O2 Flow Rate FiO2 03/19/20 07:00 82 16 117/73 (88) 99 Room Air 03/19/20 04:00 97.7 97.7 Labs Labs Laboratory Tests Test 03/18/20 17:50 03/18/20 21:40 03/19/20 03:15 03/19/20 03:45 White Blood Count 17.5 x10^3/uL (4.0-11.0) 19.7 x10^3/uL (4.0-11.0) Red Blood Count 4.13 x10^6/uL (4.30-5.70) 3.78 x10^6/uL (4.30-5.70) Hemoglobin 14.1 g/dL (13.0-17.5) 12.8 g/dL (13.0-17.5) Hematocrit 41.8 % (39.0-53.0) 38.1 % (39.0-53.0) Mean Corpuscular Volume 101 fL (79-100) 101 fL (79-100) Mean Corpuscular Hemoglobin 34 pg (25-35) 34 pg (25-35) Mean Corpuscular Hemoglobin Concent 34 g/dL (31-37) 34 g/dL (31-37) Red Cell Distribution Width 15.1 % (11.5-14.5) 15.2 % (11.5-14.5) Platelet Count 204 x10^3/uL (140-400) 222 x10^3/uL (140-400) Neutrophils (%) (Auto) 90 % (31-73) Lymphocytes (%) (Auto) 6 % (24-48) Monocytes (%) (Auto) 4 % (0-9) Eosinophils (%) (Auto) 0 % (0-3) Basophils (%) (Auto) 0 % (0-3) Neutrophils # (Auto) 15.7 x10^3/uL (1.8-7.7) Lymphocytes # (Auto) 1.0 x10^3/uL (1.0-4.8) Monocytes # (Auto) 0.7 x10^3/uL (0.0-1.1) Eosinophils # (Auto) 0.0 x10^3/uL (0.0-0.7) Basophils # (Auto) 0.0 x10^3/uL (0.0-0.2) Segmented Neutrophils % 89 % (35-66) Band Neutrophils % 5 % (0-9) Lymphocytes % 4 % (24-48) Monocytes % 2 % (0-10) Toxic Vacuolation Slight Platelet Estimate Adequate (ADEQUATE) Prothrombin Time 17.6 SEC (11.7-14.0) Prothromb Time International Ratio 1.5 (0.8-1.1) Activated Partial Thromboplast Time 47 SEC (24-38) Sodium Level 134 mmol/L (136-145) 134 mmol/L (136-145) Potassium Level 4.7 mmol/L (3.5-5.1) 4.5 mmol/L (3.5-5.1) Chloride Level 97 mmol/L (98-107) 102 mmol/L (98-107) Carbon Dioxide Level 22 mmol/L (21-32) 20 mmol/L (21-32) Anion Gap 15 (6-14) 12 (6-14) Blood Urea Nitrogen 40 mg/dL (8-26) 43 mg/dL (8-26) Creatinine 3.9 mg/dL (0.7-1.3) 3.3 mg/dL (0.7-1.3) Estimated GFR (Cockcroft-Gault) 18.3 22.2 Glucose Level 188 mg/dL (70-99) 218 mg/dL (70-99) Lactic Acid Level 4.6 mmol/L (0.4-2.0) 3.5 mmol/L (0.4-2.0) Calcium Level 8.4 mg/dL (8.5-10.1) 7.5 mg/dL (8.5-10.1) Magnesium Level 2.0 mg/dL (1.8-2.4) 2.0 mg/dL (1.8-2.4) Total Bilirubin 0.7 mg/dL (0.2-1.0) Direct Bilirubin 0.4 mg/dL (0.0-0.2) Aspartate Amino Transf (AST/SGOT) 50 U/L (15-37) Alanine Aminotransferase (ALT/SGPT) 58 U/L (16-63) Alkaline Phosphatase 63 U/L (46-116) Creatine Kinase 382 U/L (39-308) Troponin I Quantitative 0.398 ng/mL (0.000-0.055) 1.234 ng/mL (0.000-0.055) NM-Meo-G-Type Natriuretic Peptide 74233 pg/mL (0-449) Total Protein 6.0 g/dL (6.4-8.2) Albumin 2.1 g/dL (3.4-5.0) Triglycerides Level 88 mg/dL (0-150) Cholesterol Level 76 mg/dL (0-200) LDL Cholesterol, Calculated 41 mg/dL (0-100) VLDL Cholesterol, Calculated 18 mg/dL (0-40) Non-HDL Cholesterol Calculated 59 mg/dL (0-129) HDL Cholesterol 17 mg/dL (40-60) Cholesterol/HDL Ratio 4.5 Procalcitonin 14.64 ng/mL (0.00-0.10) Urine Collection Type Unknown Urine Color Viktoriya Urine Clarity Cloudy Urine pH 5.0 (<5.0-8.0) Urine Specific [place] 1.025 (1.000-1.030) Urine Protein 100 mg/dL (NEG-TRACE) Urine Glucose (UA) Negative mg/dL (NEG) Urine Ketones (Stick) Negative mg/dL (NEG) Urine Blood Trace (NEG) Urine Nitrite Negative (NEG) Urine Bilirubin Small (NEG) Urine Urobilinogen Dipstick 0.2 mg/dL (0.2 mg/dL) Urine Leukocyte Esterase Negative (NEG) Urine RBC Occ /HPF (0-2) Urine WBC 5-10 /HPF (0-4) Urine Squamous Epithelial Cells Few /LPF Urine Amorphous Sediment Present /HPF Urine Bacteria 0 /HPF (0-FEW) Urine Hyaline Casts Few /HPF Urine Granular Casts Occasional /HPF Urine Mucus Mod /LPF Laboratory Tests Test 03/18/20 17:50 03/18/20 21:40 03/19/20 03:15 03/19/20 03:45 White Blood Count 17.5 x10^3/uL (4.0-11.0) 19.7 x10^3/uL (4.0-11.0) Red Blood Count 4.13 x10^6/uL (4.30-5.70) 3.78 x10^6/uL (4.30-5.70) Hemoglobin 14.1 g/dL (13.0-17.5) 12.8 g/dL (13.0-17.5) Hematocrit 41.8 % (39.0-53.0) 38.1 % (39.0-53.0) Mean Corpuscular Volume 101 fL (79-100) 101 fL (79-100) Mean Corpuscular Hemoglobin 34 pg (25-35) 34 pg (25-35) Mean Corpuscular Hemoglobin Concent 34 g/dL (31-37) 34 g/dL (31-37) Red Cell Distribution Width 15.1 % (11.5-14.5) 15.2 % (11.5-14.5) Platelet Count 204 x10^3/uL (140-400) 222 x10^3/uL (140-400) Neutrophils (%) (Auto) 90 % (31-73) Lymphocytes (%) (Auto) 6 % (24-48) Monocytes (%) (Auto) 4 % (0-9) Eosinophils (%) (Auto) 0 % (0-3) Basophils (%) (Auto) 0 % (0-3) Neutrophils # (Auto) 15.7 x10^3/uL (1.8-7.7) Lymphocytes # (Auto) 1.0 x10^3/uL (1.0-4.8) Monocytes # (Auto) 0.7 x10^3/uL (0.0-1.1) Eosinophils # (Auto) 0.0 x10^3/uL (0.0-0.7) Basophils # (Auto) 0.0 x10^3/uL (0.0-0.2) Segmented Neutrophils % 89 % (35-66) Band Neutrophils % 5 % (0-9) Lymphocytes % 4 % (24-48) Monocytes % 2 % (0-10) Toxic Vacuolation Slight Platelet Estimate Adequate (ADEQUATE) Prothrombin Time 17.6 SEC (11.7-14.0) Prothromb Time International Ratio 1.5 (0.8-1.1) Activated Partial Thromboplast Time 47 SEC (24-38) Sodium Level 134 mmol/L (136-145) 134 mmol/L (136-145) Potassium Level 4.7 mmol/L (3.5-5.1) 4.5 mmol/L (3.5-5.1) Chloride Level 97 mmol/L (98-107) 102 mmol/L (98-107) Carbon Dioxide Level 22 mmol/L (21-32) 20 mmol/L (21-32) Anion Gap 15 (6-14) 12 (6-14) Blood Urea Nitrogen 40 mg/dL (8-26) 43 mg/dL (8-26) Creatinine 3.9 mg/dL (0.7-1.3) 3.3 mg/dL (0.7-1.3) Estimated GFR (Cockcroft-Gault) 18.3 22.2 Glucose Level 188 mg/dL (70-99) 218 mg/dL (70-99) Lactic Acid Level 4.6 mmol/L (0.4-2.0) 3.5 mmol/L (0.4-2.0) Calcium Level 8.4 mg/dL (8.5-10.1) 7.5 mg/dL (8.5-10.1) Magnesium Level 2.0 mg/dL (1.8-2.4) 2.0 mg/dL (1.8-2.4) Total Bilirubin 0.7 mg/dL (0.2-1.0) Direct Bilirubin 0.4 mg/dL (0.0-0.2) Aspartate Amino Transf (AST/SGOT) 50 U/L (15-37) Alanine Aminotransferase (ALT/SGPT) 58 U/L (16-63) Alkaline Phosphatase 63 U/L (46-116) Creatine Kinase 382 U/L (39-308) Troponin I Quantitative 0.398 ng/mL (0.000-0.055) 1.234 ng/mL (0.000-0.055) [place]-Pav-C-Type Natriuretic Peptide 07190 pg/mL (0-449) Total Protein 6.0 g/dL (6.4-8.2) Albumin 2.1 g/dL (3.4-5.0) Triglycerides Level 88 mg/dL (0-150) Cholesterol Level 76 mg/dL (0-200) LDL Cholesterol, Calculated 41 mg/dL (0-100) VLDL Cholesterol, Calculated 18 mg/dL (0-40) Non-HDL Cholesterol Calculated 59 mg/dL (0-129) HDL Cholesterol 17 mg/dL (40-60) Cholesterol/HDL Ratio 4.5 Procalcitonin 14.64 ng/mL (0.00-0.10) Urine Collection Type Unknown Urine Color Viktoriya Urine Clarity Cloudy Urine pH 5.0 (<5.0-8.0) Urine Specific [place] 1.025 (1.000-1.030) Urine Protein 100 mg/dL (NEG-TRACE) Urine Glucose (UA) Negative mg/dL (NEG) Urine Ketones (Stick) Negative mg/dL (NEG) Urine Blood Trace (NEG) Urine Nitrite Negative (NEG) Urine Bilirubin Small (NEG) Urine Urobilinogen Dipstick 0.2 mg/dL (0.2 mg/dL) Urine Leukocyte Esterase Negative (NEG) Urine RBC Occ /HPF (0-2) Urine WBC 5-10 /HPF (0-4) Urine Squamous Epithelial Cells Few /LPF Urine Amorphous Sediment Present /HPF Urine Bacteria 0 /HPF (0-FEW) Urine Hyaline Casts Few /HPF Urine Granular Casts Occasional /HPF Urine Mucus Mod /LPF Assessment/Plan Assessment/Plan Coffee ground emesis- with ARF, most likely secondary to resolving sepsis. PUD and/or GERD in differential. Plan serial cbcs PPI therapy consider EGD if bleeding continues despite medical therapy FUll note dictated ORLY HARDY MD Mar 19, 2020 09:25
[2020-03-19] MEDS: VASOPRESSIN 20 UNIT in IV DEXTROSE 5% 100ML 100 ML IV PRN ×2 (11:33→17:28)
--- NOTE | 2020-03-19 11:40 | PDOC2 ---
CONSULT Date of Consult Date of Consult DATE: 03/19/20 TIME: 11:34 Reason for Consult Reason for Consult: CRAIG Referring Physician Referring Physician: JOSEPH Identification/Chief Complaint Chief Complaint WEAKNESS History of Present Illness Reason for Visit: THIS IS A 74 YR OLD WITH WEAKNESS AND DYSURIA. NOTED TO BE HYPOTENSIVE WITH NAUN COCYTOSIS AND FINDINGS CONCERNING FOR SEPSIS. NO CKD HX BUT CR OF 3.9 ON ADMIT. HAS HX OF BPH AND FREQUENCY. IMAGING REVIEWED INDICATED NORMAL RENAL MORPHOLOGY BUT A SMALL NON OBSTRUCTING LEFT RENAL STONE. PER FAMILY HE HAS HAD SOME LETHARGY AND POOR APPETITE. CURRENTLY COVID PRECAUTIONS ONGOING DUE TO HIM TESTING POS FOR COVID EARLY THIS MONTH Past Medical History Cardiovascular: CAD, HTN, Hyperlipidemia, Other (PVCs) Pulmonary: COPD Heme/Onc: Other (secondary polycythemia demed due to chronic tobacco use) Musculoskeletal: Osteoarthritis Renal/: No pertinent hx, Benign prostatic enlarg. Past Surgical History Past Surgical History: Appendectomy, Cholecystectomy, Hernia Repair (inguinal x2), Other (PCID/stents to LAD 2008) Family History Family History: Coronary Artery Disease (mother and brother) Social History <1 pack per day ALCOHOL: none Drugs: None Lives: with Family (spouse) Current Problem List Problem List Problems Medical Problems: (1) Kidney failure Status: Acute (2) Septic shock Status: Acute Current Medications Current Medications Current Medications Ceftriaxone Sodium (Rocephin) 1 gm 1X ONCE IVP ; Start 03/18/20 at 17:30; Stop 03/18/20 at 17:46; Status DC Sodium Chloride 1,000 ml @ 1,000 mls/hr 1X ONCE IV Last administered on 03/18/20at 17:35; Start 03/18/20 at 17:30; Stop 03/18/20 at 18:29; Status DC Sodium Chloride 1,000 ml @ 1,000 mls/hr 1X ONCE IV Last administered on 03/18/20at 18:04; Start 03/18/20 at 17:45; Stop 03/18/20 at 18:44; Status DC Sodium Chloride 1,000 ml @ 1,000 mls/hr 1X ONCE IV Last administered on 03/18/20at 18:05; Start 03/18/20 at 17:45; Stop 03/18/20 at 18:44; Status DC Piperacillin Sod/ Tazobactam Sod 4.5 gm/Sodium Chloride 100 ml @ 200 mls/hr 1X ONCE IV Last administered on 03/18/20at 18:10; Start 03/18/20 at 17:45; Stop 03/18/20 at 18:14; Status DC Vancomycin HCl 2.25 gm/Sodium Chloride 500 ml @ 250 mls/hr 1X ONCE IV ; Start 03/18/20 at 18:00; Stop 03/18/20 at 19:59; Status UNV Vancomycin HCl 2 gm/Sodium Chloride 500 ml @ 250 mls/hr 1X ONCE IV Last administered on 03/18/20at 18:11; Start 03/18/20 at 18:45; Stop 03/18/20 at 20:44; Status DC Ondansetron HCl (Zofran) 8 mg 1X ONCE IVP ; Start 03/18/20 at 18:45; Stop 03/18/20 at 18:46; Status DC Pantoprazole Sodium (PROTONIX VIAL for IV PUSH) 80 mg 1X ONCE IVP Last administered on 03/18/20at 18:42; Start 03/18/20 at 18:45; Stop 03/18/20 at 18:46; Status DC Pantoprazole Sodium 80 mg/ Sodium Chloride 100 ml @ 10 mls/hr Q10H IV Last administered on 03/18/20at 19:20; Start 03/18/20 at 18:45; Stop 03/19/20 at 01:30; Status DC Norepinephrine Bitartrate 8 mg/ Dextrose 258 ml @ 17.609 mls/ hr 1X ONCE IV ; Start 03/18/20 at 20:00; Stop 03/19/20 at 10:39; Status DC Sodium Chloride 1,000 ml @ 100 mls/hr Q10H IV Last administered on 03/19/20at 01:27; Start 03/19/20 at 02:00 Norepinephrine Bitartrate 8 mg/ Dextrose 258 ml @ 17.609 mls/ hr CONT PRN IV PER PROTOCOL Last administered on 03/19/20at 07:52; Start 03/19/20 at 01:00 Sodium Chloride 500 ml @ 500 mls/hr 1X ONCE IV Last administered on 03/19/20at 01:26; Start 03/19/20 at 01:00; Stop 03/19/20 at 01:59; Status DC Pantoprazole Sodium (PROTONIX VIAL for IV PUSH) 40 mg DAILYAC IVP Last administered on 03/19/20at 07:50; Start 03/19/20 at 07:30 Piperacillin Sod/ Tazobactam Sod 2.25 gm/Sodium Chloride 50 ml @ 100 mls/hr Q6HRS IV Last administered on 03/19/20at 07:50; Start 03/19/20 at 07:00 Doxycycline Hyclate 100 mg/ Dextrose 100 ml @ 50 mls/hr Q12HR IV Last administ ered on 03/19/20at 09:13; Start 03/19/20 at 09:00 Aspirin (Ecotrin) 81 mg DAILYWBKFT PO ; Start 03/20/20 at 08:00 Heparin Sodium/ Dextrose 250 ml @ 0 mls/hr CONT PRN IV PER PROTOCOL; Start 03/19/20 at 08:45; Stop 03/19/20 at 11:29; Status DC Heparin Sodium (Porcine) (Heparin Sodium) 2,200 unit PRN Q6HRS PRN IV FOR UFH LEVEL LESS THAN 0.2; Start 03/19/20 at 08:45; Stop 03/19/20 at 11:29; Status DC Vasopressin 20 unit/Dextrose 101 ml @ 12 mls/hr CONT PRN IV SEE I/O RECORD Last administered on 03/19/20at 11:33; Start 03/19/20 at 11:15 Allergies Allergies: Coded Allergies: No Known Drug Allergies (Unverified , 03/18/20) ROS General: YES: Fatigue, Malaise, Appetite PSYCHOLOGICAL ROS: YES: Anxiety Eyes: Yes Decreased vision ALLERGY AND IMMUNOLOGY: YES: Seasonal Allergies Respiratory: YES: Cough, Shortness of breath Gastrointestinal: Yes Constipation Genitourinary: YES Frequency Musculoskeletal: Yes Muscular Weakness Neurological: Yes Weakness Skin: Yes Dry Skin Physical Exam General: Alert, Oriented X3, Cooperative, No acute distress HEENT: Atraumatic Lungs: Clear to auscultation Heart: Regular rate Abdomen: Normal bowel sounds, Soft, No tenderness Extremities: No cyanosis Skin: No breakdown Neuro: Normal speech, Sensation intact Psych/Mental Status: Mental status NL, Mood NL MUSCULOSKELETAL: No joint tenderness, No deformity, No swelling Vitals VITALS Vital Signs Date Time Temp Pulse Resp B/P (MAP) Pulse Ox O2 Delivery O2 Flow Rate FiO2 03/19/20 11:00 86 16 77/65 (69) 98 Room Air 03/19/20 08:00 97.5 97.5 Labs Labs Laboratory Tests Test 03/18/20 17:50 03/18/20 21:40 03/19/20 03:15 03/19/20 03:45 White Blood Count 17.5 x10^3/uL (4.0-11.0) 19.7 x10^3/uL (4.0-11.0) Red Blood Count 4.13 x10^6/uL (4.30-5.70) 3.78 x10^6/uL (4.30-5.70) Hemoglobin 14.1 g/dL (13.0-17.5) 12.8 g/dL (13.0-17.5) Hematocrit 41.8 % (39.0-53.0) 38.1 % (39.0-53.0) Mean Corpuscular Volume 101 fL (79-100) 101 fL (79-100) Mean Corpuscular Hemoglobin 34 pg (25-35) 34 pg (25-35) Mean Corpuscular Hemoglobin Concent 34 g/dL (31-37) 34 g/dL (31-37) Red Cell Distribution Width 15.1 % (11.5-14.5) 15.2 % (11.5-14.5) Platelet Count 204 x10^3/uL (140-400) 222 x10^3/uL (140-400) Neutrophils (%) (Auto) 90 % (31-73) Lymphocytes (%) (Auto) 6 % (24-48) Monocytes (%) (Auto) 4 % (0-9) Eosinophils (%) (Auto) 0 % (0-3) Basophils (%) (Auto) 0 % (0-3) Neutrophils # (Auto) 15.7 x10^3/uL (1.8-7.7) Lymphocytes # (Auto) 1.0 x10^3/uL (1.0-4.8) Monocytes # (Auto) 0.7 x10^3/uL (0.0-1.1) Eosinophils # (Auto) 0.0 x10^3/uL (0.0-0.7) Basophils # (Auto) 0.0 x10^3/uL (0.0-0.2) Segmented Neutrophils % 89 % (35-66) Band Neutrophils % 5 % (0-9) Lymphocytes % 4 % (24-48) Monocytes % 2 % (0-10) Toxic Vacuolation Slight Platelet Estimate Adequate (ADEQUATE) Prothrombin Time 17.6 SEC (11.7-14.0) Prothromb Time International Ratio 1.5 (0.8-1.1) Activated Partial Thromboplast Time 47 SEC (24-38) Sodium Level 134 mmol/L (136-145) 134 mmol/L (136-145) Potassium Level 4.7 mmol/L (3.5-5.1) 4.5 mmol/L (3.5-5.1) Chloride Level 97 mmol/L (98-107) 102 mmol/L (98-107) Carbon Dioxide Level 22 mmol/L (21-32) 20 mmol/L (21-32) Anion Gap 15 (6-14) 12 (6-14) Blood Urea Nitrogen 40 mg/dL (8-26) 43 mg/dL (8-26) Creatinine 3.9 mg/dL (0.7-1.3) 3.3 mg/dL (0.7-1.3) Estimated GFR (Cockcroft-Gault) 18.3 22.2 Glucose Level 188 mg/dL (70-99) 218 mg/dL (70-99) Lactic Acid Level 4.6 mmol/L (0.4-2.0) 3.5 mmol/L (0.4-2.0) Calcium Level 8.4 mg/dL (8.5-10.1) 7.5 mg/dL (8.5-10.1) Magnesium Level 2.0 mg/dL (1.8-2.4) 2.0 mg/dL (1.8-2.4) Total Bilirubin 0.7 mg/dL (0.2-1.0) Direct Bilirubin 0.4 mg/dL (0.0-0.2) Aspartate Amino Transf (AST/SGOT) 50 U/L (15-37) Alanine Aminotransferase (ALT/SGPT) 58 U/L (16-63) Alkaline Phosphatase 63 U/L (46-116) Creatine Kinase 382 U/L (39-308) Troponin I Quantitative 0.398 ng/mL (0.000-0.055) 1.234 ng/mL (0.000-0.055) XZ-Fwd-Y-Type Natriuretic Peptide 68292 pg/mL (0-449) Total Protein 6.0 g/dL (6.4-8.2) Albumin 2.1 g/dL (3.4-5.0) Triglycerides Level 88 mg/dL (0-150) Cholesterol Level 76 mg/dL (0-200) LDL Cholesterol, Calculated 41 mg/dL (0-100) VLDL Cholesterol, Calculated 18 mg/dL (0-40) Non-HDL Cholesterol Calculated 59 mg/dL (0-129) HDL Cholesterol 17 mg/dL (40-60) Cholesterol/HDL Ratio 4.5 Procalcitonin 14.64 ng/mL (0.00-0.10) Urine Collection Type Unknown Urine Color Viktoriya Urine Clarity Cloudy Urine pH 5.0 (<5.0-8.0) Urine Specific [place] 1.025 (1.000-1.030) Urine Protein 100 mg/dL (NEG-TRACE) Urine Glucose (UA) Negative mg/dL (NEG) Urine Ketones (Stick) Negative mg/dL (NEG) Urine Blood Trace (NEG) Urine Nitrite Negative (NEG) Urine Bilirubin Small (NEG) Urine Urobilinogen Dipstick 0.2 mg/dL (0.2 mg/dL) Urine Leukocyte Esterase Negative (NEG) Urine RBC Occ /HPF (0-2) Urine WBC 5-10 /HPF (0-4) Urine Squamous Epithelial Cells Few /LPF Urine Amorphous Sediment Present /HPF Urine Bacteria 0 /HPF (0-FEW) Urine Hyaline Casts Few /HPF Urine Granular Casts Occasional /HPF Urine Mucus Mod /LPF Test 03/19/20 09:30 D-Dimer (Jennifer) 3.87 ug/mlFEU (0.00-0.50) Laboratory Tests Test 03/18/20 17:50 03/18/20 21:40 03/19/20 03:15 03/19/20 03:45 White Blood Count 17.5 x10^3/uL (4.0-11.0) 19.7 x10^3/uL (4.0-11.0) Red Blood Count 4.13 x10^6/uL (4.30-5.70) 3.78 x10^6/uL (4.30-5.70) Hemoglobin 14.1 g/dL (13.0-17.5) 12.8 g/dL (13.0-17.5) Hematocrit 41.8 % (39.0-53.0) 38.1 % (39.0-53.0) Mean Corpuscular Volume 101 fL (79-100) 101 fL (79-100) Mean Corpuscular Hemoglobin 34 pg (25-35) 34 pg (25-35) Mean Corpuscular Hemoglobin Concent 34 g/dL (31-37) 34 g/dL (31-37) Red Cell Distribution Width 15.1 % (11.5-14.5) 15.2 % (11.5-14.5) Platelet Count 204 x10^3/uL (140-400) 222 x10^3/uL (140-400) Neutrophils (%) (Auto) 90 % (31-73) Lymphocytes (%) (Auto) 6 % (24-48) Monocytes (%) (Auto) 4 % (0-9) Eosinophils (%) (Auto) 0 % (0-3) Basophils (%) (Auto) 0 % (0-3) Neutrophils # (Auto) 15.7 x10^3/uL (1.8-7.7) Lymphocytes # (Auto) 1.0 x10^3/uL (1.0-4.8) Monocytes # (Auto) 0.7 x10^3/uL (0.0-1.1) Eosinophils # (Auto) 0.0 x10^3/uL (0.0-0.7) Basophils # (Auto) 0.0 x10^3/uL (0.0-0.2) Segmented Neutrophils % 89 % (35-66) Band Neutrophils % 5 % (0-9) Lymphocytes % 4 % (24-48) Monocytes % 2 % (0-10) Toxic Vacuolation Slight Platelet Estimate Adequate (ADEQUATE) Prothrombin Time 17.6 SEC (11.7-14.0) Prothromb Time International Ratio 1.5 (0.8-1.1) Activated Partial Thromboplast Time 47 SEC (24-38) Sodium Level 134 mmol/L (136-145) 134 mmol/L (136-145) Potassium Level 4.7 mmol/L (3.5-5.1) 4.5 mmol/L (3.5-5.1) Chloride Level 97 mmol/L (98-107) 102 mmol/L (98-107) Carbon Dioxide Level 22 mmol/L (21-32) 20 mmol/L (21-32) Anion Gap 15 (6-14) 12 (6-14) Blood Urea Nitrogen 40 mg/dL (8-26) 43 mg/dL (8-26) Creatinine 3.9 mg/dL (0.7-1.3) 3.3 mg/dL (0.7-1.3) Estimated GFR (Cockcroft-Gault) 18.3 22.2 Glucose Level 188 mg/dL (70-99) 218 mg/dL (70-99) Lactic Acid Level 4.6 mmol/L (0.4-2.0) 3.5 mmol/L (0.4-2.0) Calcium Level 8.4 mg/dL (8.5-10.1) 7.5 mg/dL (8.5-10.1) Magnesium Level 2.0 mg/dL (1.8-2.4) 2.0 mg/dL (1.8-2.4) Total Bilirubin 0.7 mg/dL (0.2-1.0) Direct Bilirubin 0.4 mg/dL (0.0-0.2) Aspartate Amino Transf (AST/SGOT) 50 U/L (15-37) Alanine Aminotransferase (ALT/SGPT) 58 U/L (16-63) Alkaline Phosphatase 63 U/L (46-116) Creatine Kinase 382 U/L (39-308) Troponin I Quantitative 0.398 ng/mL (0.000-0.055) 1.234 ng/mL (0.000-0.055) PG-Rzr-U-Type Natriuretic Peptide 15438 pg/mL (0-449) Total Protein 6.0 g/dL (6.4-8.2) Albumin 2.1 g/dL (3.4-5.0) Triglycerides Level 88 mg/dL (0-150) Cholesterol Level 76 mg/dL (0-200) LDL Cholesterol, Calculated 41 mg/dL (0-100) VLDL Cholesterol, Calculated 18 mg/dL (0-40) Non-HDL Cholesterol Calculated 59 mg/dL (0-129) HDL Cholesterol 17 mg/dL (40-60) Cholesterol/HDL Ratio 4.5 Procalcitonin 14.64 ng/mL (0.00-0.10) Urine Collection Type Unknown Urine Color Viktoriya Urine Clarity Cloudy Urine pH 5.0 (<5.0-8.0) Urine Specific [place] 1.025 (1.000-1.030) Urine Protein 100 mg/dL (NEG-TRACE) Urine Glucose (UA) Negative mg/dL (NEG) Urine Ketones (Stick) Negative mg/dL (NEG) Urine Blood Trace (NEG) Urine Nitrite Negative (NEG) Urine Bilirubin Small (NEG) Urine Urobilinogen Dipstick 0.2 mg/dL (0.2 mg/dL) Urine Leukocyte Esterase Negative (NEG) Urine RBC Occ /HPF (0-2) Urine WBC 5-10 /HPF (0-4) Urine Squamous Epithelial Cells Few /LPF Urine Amorphous Sediment Present /HPF Urine Bacteria 0 /HPF (0-FEW) Urine Hyaline Casts Few /HPF Urine Granular Casts Occasional /HPF Urine Mucus Mod /LPF Test 03/19/20 09:30 D-Dimer (Jennifer) 3.87 ug/mlFEU (0.00-0.50) Assessment/Plan Assessment/Plan IMP LEUCOCYTOSIS SEPSIS COVID POS RECENTLY HYPOTENSION CRAIG-ATN PLAN HOLD ANY ANTIHYPERTENSIVES ANTIBIOTICS HYDRATION PRESSORS NEEDED WILL FOLLOW FIDENCIO ANGELES MD Mar 19, 2020 11:40
--- NOTE | 2020-03-19 12:30 | NUR ---
SS following for discharge planning. SS reviewed pt chart and discussed with pt RN. Pt is from home with spouse and is currently on room air. Pt previously COVID19 positive and was recently quarantined. COVID19 test pending. Pt on IV Doxycycline, IV Zosyn, Levophed, and Vasopressin. SS will continue to follow for discharge planning.
--- NOTE | 2020-03-19 16:12 | CARD ---
MR#: [id number] Date of Study: 03/19/2020 Ordering Physician: LUISA DEAN, Referring Physician: LUISA DEAN, Tech: Renu Wang [facility] APPROVED REPORT EXAM: Two-dimensional and M-mode echocardiogram with Doppler and color Doppler. Other Information Quality : Good INDICATION Congestive Heart Failure 2D DIMENSIONS RVDd4.5 (2.9-3.5cm)Left Atrium(2D)3.5 (1.6-4.0cm) IVSd1.2 (0.7-1.1cm)Aortic Root(2D)3.4 (2.0-3.7cm) LVDd5.2 (3.9-5.9cm)LVOT Diameter2.3 (1.8-2.4cm) PWd1.2 (0.7-1.1cm)LVDs4.0 (2.5-4.0cm) FS (%) 21.7 %SV55.6 ml LVEF(%)45.0 (>50%) Aortic Valve AoV Peak Juan.88.3cm/sAoV VTI10.5cm AO Peak GR.3.1mmHgLVOT VTI 8.19cm AO Mean GR.2mmHgAVA (VTI)3.20cm2 Mitral Valve MV E Cyzztjbb50.2cm/sMV DECEL [id number] MV A Sutsdblb76.2cm/sE/A Ratio0.8 TDI Lateral E' P. V6.18cm/sMedial E' P. V3.54cm/s E/Lateral E'6.7E/Medial E'11.6 Tricuspid Valve TR P. Slztsluu438od/sRAP [id number] TR Peak Gr.01cnGlSVIQ00ntYv Pulmonary Vein S1 Hyqtkjef28.4cm/sS2 Emtxlypc56.05cm/s D2 Whsicumo37.1cm/s LEFT VENTRICLE The left ventricle is normal size. There is mild concentric left ventricular hypertrophy. Left ventri natty systolic function is moderately impaired. EF 35% Septal motion consistent with conduction abnorma lity. Otherwise, there is moderate global hypokinesis. Transmitral Doppler flow pattern is Grade I-ab normal relaxation pattern. RIGHT VENTRICLE The right ventricle is moderate to severely dilated. The right ventricle is moderately to severely hy pertrophied. RV Systolic function is mildly to moderately reduced. ATRIA The left atrium size is normal. The right atrium is mildly dilated. The interatrial septum is intact with no evidence for an atrial septal defect or patent foramen ovale as noted on 2-D or Doppler imagi ng. AORTIC VALVE The aortic valve is calcified but opens well. Doppler and Color Flow revealed no significant aortic r egurgitation. There is no significant aortic valvular stenosis. MITRAL VALVE The mitral valve is calcified but opens well. There is no evidence of mitral valve prolapse. There is no mitral valve stenosis. Doppler and Color Flow revealed no mitral valve regurgitation noted. TRICUSPID VALVE The tricuspid valve is normal in structure and function. Doppler and Color Flow revealed trace tricus pid regurgitation. The PA pressure was estimated at 31 mmHg. There is no tricuspid valve stenosis. PULMONIC VALVE Doppler and Color Flow revealed no pulmonic valvular regurgitation. There is no pulmonic valvular laith nosis. GREAT VESSELS The aortic root is normal in size. The ascending aorta is not well seen. The IVC is dilated and colla pses <50% with inspiration. PERICARDIAL EFFUSION There is no evidence of significant pericardial effusion. Critical Notification Critical Value: No <Conclusion> Left ventricle systolic function is moderately impaired. EF 35% Septal motion consistent with conduction abnormality. Otherwise, there is moderate global hypokinesis . The right ventricle is moderate to severely dilated. The right ventricle is moderately to severely hypertrophied. RV Systolic function is mildly to moderately reduced. The IVC is dilated and collapses <50% with inspiration. Signed by : Luisa Dean, Electronically Approved : 03/19/2020 16:12:09
[2020-03-20] VITALS (25 sets, daily range): BP systolic 80–129; BP diastolic 51–83
[2020-03-20] MEDS: PIPERACILLIN/TAZOBACTAM 2.25 GM in IV NORMAL SALINE 50ML 50 ML IV SCH ×5 (00:29→23:00)
[2020-03-20] MEDS: VASOPRESSIN 20 UNIT in IV DEXTROSE 5% 100ML 100 ML IV PRN ×2 (01:19→08:56)
[2020-03-20] MEDS: NOREPINEPHRINE VIAL 8 MG in IV DEXTROSE 5% 250 ML IV PRN ×6 (01:25→21:18)
--- NOTE | 2020-03-20 06:20 | PDOC ---
Infectious Disease Note Subjective Subjective Doing ok. Has some abd "discomfort" but no pain. + Flatus No N/V/D/SOA/Rash or sig cough UOP has picked up Less chills ROS ROS o/w neg Vital Sign Vital Signs Vital Signs Date Time Temp Pulse Resp B/P (MAP) Pulse Ox O2 Delivery O2 Flow Rate FiO2 03/20/20 06:00 83 20 120/77 (91) 99 Room Air 03/20/20 03:57 97.8 97.8 Physical Exam PHYSICAL EXAM CONSTITUTIONAL: He is a very pleasant gentleman. He is cooperative. He is lying in bed. He is comfortable. He is answering questions. HEENT: Pupils equal and reactive, but appears as early cataracts. He has normal conjunctivae. Oral cavity, pharynx was clear. NECK: Supple, with no JVD. LUNGS: Clear to auscultation, no wheeze. HEART: S1, S2. ABDOMEN: Soft, no guarding, no rebound. Positive but decreased bowel sounds. Mild distension EXTREMITIES: No clubbing, no edema. His extremities were cool to touch with decreased pulses bilaterally SCD. SKIN: Warm to touch without generalized rash. NEUROLOGIC: Nonfocal, answering questions. Moves all extremities. PSYCHIATRIC: Affect is very pleasant. LUE art line Labs Lab Laboratory Tests Test 03/19/20 09:30 D-Dimer (Jennifer) 3.87 ug/mlFEU (0.00-0.50) Micro IMPRESSION: Hazy opacity at the right lung base, may represent atelectasis versus developing consolidative process. IMPRESSION: 1. No acute process identified within the chest, abdomen or pelvis. 2. Strandy opacities at the right lung base likely representing scarring or atelectasis. 3. Nephrolithiasis Objective Assessment Mild abd distension and discomfort - GI following Hypotension - on pressors Leukocytosis - better. Elevated Proca but also CRAIG Elevated Troponin - NSTEMI per card Right lung infiltrate CRAIG - better Coffee ground emesis - hgb better but has some abd distension COVID by report 02/22 with completed quarantine 03/11 reported neg since Neuropathy Plan Plan of Care Bladder scan Cont Zosyn Add Doxy 03/19 Hold further Vanc - Dose Dapto times one F/u COVID LE arterial dopplers pending - I did not cancel F/u labs/CXR in am and cults GI/RenalCard following Critically ill D/w nursing - will d/w GI re abd distension ONEYDA JENSEN MD Mar 20, 2020 06:19
[2020-03-20 06:25] LABS: ALBUMIN 1.5 g/dL (3.4-5.0); ALBUMIN/GLOBULIN RATIO 0.3 (1.0-1.7); CALCIUM 8.4 mg/dL (8.5-10.1); CREATININE 2.9 mg/dL (0.7-1.3); GFR 25.7; POTASSIUM 4.6 mmol/L (3.5-5.1); TOTAL BILIRUBIN 0.4 mg/dL (0.2-1.0); TOTAL PROTEIN 6.3 g/dL (6.4-8.2)
[2020-03-20 06:29] LABS: BASO % 0 % (0-3); EOS # 0.1 x10^3/uL (0.0-0.7); EOS % 0 % (0-3); HEMATOCRIT 40.5 % (39.0-53.0); HEMOGLOBIN 13.7 g/dL (13.0-17.5); LYMPH # 0.8 x10^3/uL (1.0-4.8); LYMPH % 5 % (24-48); MEAN CORPUSCULAR HEMOGLOBIN 34 pg (25-35); MEAN CORPUSCULAR HGB CONC 34 g/dL (31-37); MEAN CORPUSCULAR VOLUME 101 fL (79-100); MONO # 0.6 x10^3/uL (0.0-1.1); MONO % 4 % (0-9); NEUT # 14.5 x10^3/uL (1.8-7.7); NEUT % 91 % (31-73); PLATELET COUNT 261 x10^3/uL (140-400); RED BLOOD COUNT 4.02 x10^6/uL (4.30-5.70); RED CELL DISTRIBUTION WIDTH 15.7 % (11.5-14.5); WHITE BLOOD COUNT 15.9 x10^3/uL (4.0-11.0)
[2020-03-20] MEDS ORDERED: DAPTOmycin (GENERIC) IVPB 500 MG in IV NORMAL SALINE 50ML 50 ML IV ONE (08:00)
[2020-03-20] MEDS: ASPIRIN ENTERIC COATED 81 MG TABLET.DR. PO SCH (08:20)
[2020-03-20] MEDS: PANTOPRAZOLE IV PUSH 40 MG VIAL. IVP SCH (08:21)
[2020-03-20] MEDS: DOXYCYCLINE HYCLATE 100 MG in IV DEXTROSE 5% 100ML 100 ML IV SCH ×2 (09:33→20:12)
--- NOTE | 2020-03-20 10:56 | PDOC ---
[facility] [facility] PROGRESS NOTE Chief Complaint Chief Complaint Sepsis concerning for CAP Acute on chronic systolic CHF EF 30 to 35% Troponinemia concerning for an STEMI Hematemesis concerning for GI bleed Recent COVID positive infection CRAIG due to vasomotor nephropathy Hypertension Dyslipidemia Admit to ICU for pressors Cardiology consult Strict I's and O's and sodium restriction GI consult, consider EGD if continues to bleed despite PPI Nephrology consult Infectious disease consult, continue broad-spectrum antibiotics Follow-up with blood cultures Pending repeat COVID testing Continue IV fluids SCD for DVT prophylaxis Protonix GI prophylaxis Cardiac diet Full code Discussed with RN and RACHEL Dispo continue ICU care during vasopressor Surrogate decision maker is self Total critical time spent 40 minutes History of Present Illness History of Present Illness 74-year-old male with past medical history of hypertension, dyslipidemia, CAD with stents and history of tobacco dependence. He presents to the ED with complaints of generalized weakness for the past 2 days. Patient originally tested positive for COVID on February 22 and he remained quarantined for 2 weeks after with his who also was tested positive. Patient was retested this past week and it was negative. Patient's also stated that the patient has fallen twice in the past few days and has been appearing more lethargic, confused, and with loss of appetite. Patient also endorses vomiting some blood denies chest pain, abdominal pain, diarrhea, loss of smell, dysuria or bloody stools. 03/20/2020 No acute events overnight. Patient seen and examined bedside. Continues to be on levo fed and vasopressin. Echo was completed yesterday showed ejection fraction of 30 to 35%. Pending evaluation by cardiology. Patient's chart, labs, images were reviewed and discussed with RN Vitals/I&O Vitals/I&O: Vital Signs Date Time Temp Pulse Resp B/P (MAP) Pulse Ox O2 Delivery O2 Flow Rate FiO2 03/20/20 10:00 85 20 123/80 (94) 99 Room Air 03/20/20 07:00 97.7 97.7 I & O 03/19/20 03/19/20 03/20/20 15:00 23:00 07:00 Intake Total 1110 ml 1558.57 ml 0 ml Output Total 100 ml 325 ml 300 ml Balance 1010 ml 1233.57 ml -300 ml Physical Exam Physical Exam: CONSTITUTIONAL: He is a very pleasant gentleman. He is cooperative. He is lying in bed. He is comfortable. He is answering questions. HEENT: Pupils equal and reactive, but appears as early cataracts. He has normal conjunctivae. Oral cavity, pharynx was clear. NECK: Supple, with no JVD. LUNGS: Clear to auscultation, no wheeze. HEART: S1, S2. ABDOMEN: Soft, no guarding, no rebound. Positive but decreased bowel sounds. Mild distension EXTREMITIES: No clubbing, no edema. His extremities were cool to touch with decreased pulses bilaterally SCD. SKIN: Warm to touch without generalized rash. NEUROLOGIC: Nonfocal, answering questions. Moves all extremities. PSYCHIATRIC: Affect is very pleasant. LUE art line General: Alert, Oriented X3, Cooperative, No acute distress Heart: Regular rate (SR no significant ectopies) Abdomen: Soft Extremities: No cyanosis, No edema Skin: No breakdown, No significant lesion Labs Labs: Laboratory Tests Test 03/20/20 05:45 White Blood Count 15.9 x10^3/uL (4.0-11.0) Red Blood Count 4.02 x10^6/uL (4.30-5.70) Hemoglobin 13.7 g/dL (13.0-17.5) Hematocrit 40.5 % (39.0-53.0) Mean Corpuscular Volume 101 fL (79-100) Mean Corpuscular Hemoglobin 34 pg (25-35) Mean Corpuscular Hemoglobin Concent 34 g/dL (31-37) Red Cell Distribution Width 15.7 % (11.5-14.5) Platelet Count 261 x10^3/uL (140-400) Neutrophils (%) (Auto) 91 % (31-73) Lymphocytes (%) (Auto) 5 % (24-48) Monocytes (%) (Auto) 4 % (0-9) Eosinophils (%) (Auto) 0 % (0-3) Basophils (%) (Auto) 0 % (0-3) Neutrophils # (Auto) 14.5 x10^3/uL (1.8-7.7) Lymphocytes # (Auto) 0.8 x10^3/uL (1.0-4.8) Monocytes # (Auto) 0.6 x10^3/uL (0.0-1.1) Eosinophils # (Auto) 0.1 x10^3/uL (0.0-0.7) Basophils # (Auto) 0.0 x10^3/uL (0.0-0.2) Sodium Level 129 mmol/L (136-145) Potassium Level 4.6 mmol/L (3.5-5.1) Chloride Level 100 mmol/L (98-107) Carbon Dioxide Level 18 mmol/L (21-32) Anion Gap 11 (6-14) Blood Urea Nitrogen 43 mg/dL (8-26) Creatinine 2.9 mg/dL (0.7-1.3) Estimated GFR (Cockcroft-Gault) 25.7 BUN/Creatinine Ratio 15 (6-20) Glucose Level 270 mg/dL (70-99) Calcium Level 8.4 mg/dL (8.5-10.1) Total Bilirubin 0.4 mg/dL (0.2-1.0) Aspartate Amino Transf (AST/SGOT) 40 U/L (15-37) Alanine Aminotransferase (ALT/SGPT) 43 U/L (16-63) Alkaline Phosphatase 66 U/L (46-116) Total Protein 6.3 g/dL (6.4-8.2) Albumin 1.5 g/dL (3.4-5.0) Albumin/Globulin Ratio 0.3 (1.0-1.7) Assessment and Plan Assessmemt and Plan Problems Medical Problems: (1) Kidney failure Status: Acute (2) Septic shock Status: Acute Comment Review of Relevant I have reviewed the following items manny (where applicable) has been applied. Medications: Current Medications Medications (Trade) Dose Ordered Sig/Abe Route PRN Reason Start Time Stop Time Status Last Admin Dose Admin Aspirin (Ecotrin) 81 mg [id number] PO 03/20/20 08:00 03/20/20 08:20 Vasopressin 20 unit/Dextrose 101 ml @ 12 mls/hr CONT PRN IV SEE I/O RECORD 03/19/20 11:15 03/20/20 08:56 Daptomycin 500 mg/ Sodium Chloride 50 ml @ 100 mls/hr ONCE ONCE IV 03/20/20 08:00 03/20/20 08:29 DC 03/20/20 08:21 Justicifation of Admission Dx: Justifications for Admission: Justification of Admission Dx: Yes Aspiration Pneumonia: Hemodynamic Instability AYAKA RUIZ MD Mar 20, 2020 10:56
--- NOTE | 2020-03-20 11:38 | PDOC ---
CARDIOLOGY PROGRESS NOTE SUBJECTIVE: No acute events overnight. Still on pressors. OBJECTIVE: Vital Signs/I&O: Vital Signs Date Time Temp Pulse Resp B/P (MAP) Pulse Ox O2 Delivery O2 Flow Rate FiO2 03/20/20 10:00 85 20 123/80 (94) 99 Room Air 03/20/20 07:00 97.7 97.7 I & O 03/19/20 03/19/20 03/20/20 15:00 23:00 07:00 Intake Total 1110 ml 1558.57 ml 0 ml Output Total 100 ml 325 ml 300 ml Balance 1010 ml 1233.57 ml -300 ml CURRENT MEDICATIONS: Current Medications Medications (Trade) Dose Ordered Sig/Abe Route PRN Reason Start Time Stop Time Status Last Admin Dose Admin Aspirin (Ecotrin) 81 mg [id number] PO 03/20/20 08:00 03/20/20 08:20 Daptomycin 500 mg/ Sodium Chloride 50 ml @ 100 mls/hr ONCE ONCE IV 03/20/20 08:00 03/20/20 08:29 DC 03/20/20 08:21 DIAGNOSTIC TESTING: Echo with moderate LV dysfunction. RV dilation Labs: Laboratory Tests 03/20/20 05:45 Laboratory Tests Test 03/20/20 05:45 White Blood Count 15.9 x10^3/uL (4.0-11.0) H Red Blood Count 4.02 x10^6/uL (4.30-5.70) L Hemoglobin 13.7 g/dL (13.0-17.5) Hematocrit 40.5 % (39.0-53.0) Mean Corpuscular Volume 101 fL (79-100) H Mean Corpuscular Hemoglobin 34 pg (25-35) Mean Corpuscular Hemoglobin Concent 34 g/dL (31-37) Red Cell Distribution Width 15.7 % (11.5-14.5) H Platelet Count 261 x10^3/uL (140-400) Neutrophils (%) (Auto) 91 % (31-73) H Lymphocytes (%) (Auto) 5 % (24-48) L Monocytes (%) (Auto) 4 % (0-9) Eosinophils (%) (Auto) 0 % (0-3) Basophils (%) (Auto) 0 % (0-3) Neutrophils # (Auto) 14.5 x10^3/uL (1.8-7.7) H Lymphocytes # (Auto) 0.8 x10^3/uL (1.0-4.8) L Monocytes # (Auto) 0.6 x10^3/uL (0.0-1.1) Eosinophils # (Auto) 0.1 x10^3/uL (0.0-0.7) Basophils # (Auto) 0.0 x10^3/uL (0.0-0.2) Sodium Level 129 mmol/L (136-145) L Potassium Level 4.6 mmol/L (3.5-5.1) Chloride Level 100 mmol/L (98-107) Carbon Dioxide Level 18 mmol/L (21-32) L Anion Gap 11 (6-14) Blood Urea Nitrogen 43 mg/dL (8-26) H Creatinine 2.9 mg/dL (0.7-1.3) H Estimated GFR (Cockcroft-Gault) 25.7 BUN/Creatinine Ratio 15 (6-20) Glucose Level 270 mg/dL (70-99) H Calcium Level 8.4 mg/dL (8.5-10.1) L Total Bilirubin 0.4 mg/dL (0.2-1.0) Aspartate Amino Transf (AST/SGOT) 40 U/L (15-37) H Alkaline Phosphatase 66 U/L (46-116) Total Protein 6.3 g/dL (6.4-8.2) L Albumin 1.5 g/dL (3.4-5.0) L Albumin/Globulin Ratio 0.3 (1.0-1.7) L ASSESSMENT: 1. Acute on chronic systolic and diastolic HF 2. Probable mixed cardiogenic and septic shock. 3. ?Covid complications. 4. NSTEMI - likely type 2 5. CAD s/p prior PCI. 6. CRAIG on CKD PLAN: 1. Continue supportive care. Renal failure is improving. Will consider further invasive assessment if COVID negative and not improving with abx and supportive care. High risk for cath at this time. 2. Given NSTEMI, afib and stable Hgb, plan for initiation of heparin gtt. Thanks Justicifation of Admission Dx: Justifications for Admission: Justification of Admission Dx: Yes Aspiration Pneumonia: Hemodynamic Instability LUISA DEAN MD Mar 20, 2020 11:38
--- NOTE | 2020-03-20 12:00 | PDOC ---
Renal-Progress Notes Subjective Notes Notes NONE. DID NOT ENTER ROOM DUE TO COVID PRECAUTIONS History of Present Illness Hx of present illness STABLE Vitals Vitals Vital Signs Date Time Temp Pulse Resp B/P (MAP) Pulse Ox O2 Delivery O2 Flow Rate FiO2 03/20/20 10:00 85 20 123/80 (94) 99 Room Air 03/20/20 07:00 97.7 97.7 Weight Weight [ ] I.O. Intake and Output Intake and Output 03/20/20 07:00 Intake Total 2668.57 ml Output Total 725 ml Balance 1943.57 ml Intake Oral 960 ml IV Total 1708.57 ml Output Urine Total 725 ml Labs Labs Laboratory Tests Test 03/20/20 05:45 White Blood Count 15.9 x10^3/uL (4.0-11.0) Red Blood Count 4.02 x10^6/uL (4.30-5.70) Hemoglobin 13.7 g/dL (13.0-17.5) Hematocrit 40.5 % (39.0-53.0) Mean Corpuscular Volume 101 fL (79-100) Mean Corpuscular Hemoglobin 34 pg (25-35) Mean Corpuscular Hemoglobin Concent 34 g/dL (31-37) Red Cell Distribution Width 15.7 % (11.5-14.5) Platelet Count 261 x10^3/uL (140-400) Neutrophils (%) (Auto) 91 % (31-73) Lymphocytes (%) (Auto) 5 % (24-48) Monocytes (%) (Auto) 4 % (0-9) Eosinophils (%) (Auto) 0 % (0-3) Basophils (%) (Auto) 0 % (0-3) Neutrophils # (Auto) 14.5 x10^3/uL (1.8-7.7) Lymphocytes # (Auto) 0.8 x10^3/uL (1.0-4.8) Monocytes # (Auto) 0.6 x10^3/uL (0.0-1.1) Eosinophils # (Auto) 0.1 x10^3/uL (0.0-0.7) Basophils # (Auto) 0.0 x10^3/uL (0.0-0.2) Sodium Level 129 mmol/L (136-145) Potassium Level 4.6 mmol/L (3.5-5.1) Chloride Level 100 mmol/L (98-107) Carbon Dioxide Level 18 mmol/L (21-32) Anion Gap 11 (6-14) Blood Urea Nitrogen 43 mg/dL (8-26) Creatinine 2.9 mg/dL (0.7-1.3) Estimated GFR (Cockcroft-Gault) 25.7 BUN/Creatinine Ratio 15 (6-20) Glucose Level 270 mg/dL (70-99) Calcium Level 8.4 mg/dL (8.5-10.1) Total Bilirubin 0.4 mg/dL (0.2-1.0) Aspartate Amino Transf (AST/SGOT) 40 U/L (15-37) Alanine Aminotransferase (ALT/SGPT) 43 U/L (16-63) Alkaline Phosphatase 66 U/L (46-116) Total Protein 6.3 g/dL (6.4-8.2) Albumin 1.5 g/dL (3.4-5.0) Albumin/Globulin Ratio 0.3 (1.0-1.7) Micro Micro Microbiology 03/19/20 Urine Culture - Final, Complete 03/18/20 Blood Culture - Preliminary, Resulted NO GROWTH AFTER 1 DAY Review of Systems Constitutional: yes: other (PT IN ISOLATION) Ears/Nose/Throat: No: nasal congestion Physical Exam General Appearance: other (NO EXAM DUE TO COVID ISOLATION) Musculoskeletal: Osteoarthritis Assessment Assessment Assessment/Plan IMP LEUCOCYTOSIS SEPSIS COVID POS RECENTLY HYPOTENSION [id number] DOWN TO 2.9 HYPONATREMIA-NA OF 129 PLAN HOLD ANY ANTIHYPERTENSIVES ANTIBIOTICS HYDRATION PRESSORS NEEDED WILL FOLLOW FIDENCIO ANGELES MD Mar 20, 2020 12:00
[2020-03-20 14:28] LABS: ISTAT BE VENOUS -10 mmol/L (0-3); ISTAT HCO3 VEN 18 mmol/L (24-28); ISTAT PCO2 VEN 40 mmHg (41-51); ISTAT PH VEN 7.25 (7.32-7.42); ISTAT PO2 VEN 53 mmHg (20-40); ISTAT SAT O2 VEN 82 %; ISTAT TCO2 VEN 19 mmol/L (21-32)
--- NOTE | 2020-03-20 16:24 | NUR ---
Patient's monitor now afib with a rate ranging from 118 - 132; BP 105/83 NPB with 91/[address] Blakely notified of change in rhythm. No orders received at this time. Continue to monitor.
--- NOTE | 2020-03-20 16:33 | NUR ---
Return phone call from Dr. Blakely with orders to initiate ACS Heparin gtt.
[2020-03-20] MEDS: HEPARIN 25,000UTS/250ML PREMIX 250 ML IV PRN (17:02)
[2020-03-20] MEDS: HEPARIN for IV BOLUS 10,000 UNIT/10 ML VIAL. IV PRN (17:03)
[2020-03-20] MEDS: IV NORMAL SALINE 1000ML BAG 1,000 ML IV SCH ×2 (17:06→18:59)
[2020-03-20] MEDS ORDERED: AMIODARONE 150 MG in IV DEXTROSE 5% 100ML 100 ML IV ONE (18:15)
[2020-03-20] MEDS: LACTOBACILLUS RHAMNOSUS GG 1 CAPSULE. PO SCH (20:11)
[2020-03-21] VITALS (27 sets, daily range): BP systolic 84–140; BP diastolic 62–98
[2020-03-21] MEDS: NOREPINEPHRINE VIAL 8 MG in IV DEXTROSE 5% 250 ML IV PRN ×5 (00:21→18:05)
[2020-03-21] MEDS: IV NORMAL SALINE 1000ML BAG 1,000 ML IV SCH ×2 (04:00→19:42)
[2020-03-21] MEDS: PIPERACILLIN/TAZOBACTAM 2.25 GM in IV NORMAL SALINE 50ML 50 ML IV SCH ×3 (06:05→18:06)
[2020-03-21 06:29] LABS: ALBUMIN 1.4 g/dL (3.4-5.0); ALBUMIN/GLOBULIN RATIO 0.3 (1.0-1.7); CALCIUM 8.6 mg/dL (8.5-10.1); CREATININE 2.3 mg/dL (0.7-1.3); GFR 33.6; POTASSIUM 4.1 mmol/L (3.5-5.1); TOTAL BILIRUBIN 0.4 mg/dL (0.2-1.0); TOTAL PROTEIN 6.4 g/dL (6.4-8.2)
[2020-03-21 06:51] LABS: BASO # 0.1 x10^3/uL (0.0-0.2); BASO % 1 % (0-3); EOS # 0.1 x10^3/uL (0.0-0.7); EOS % 0 % (0-3); HEMATOCRIT 44.9 % (39.0-53.0); HEMOGLOBIN 15.2 g/dL (13.0-17.5); LYMPH # 1.1 x10^3/uL (1.0-4.8); LYMPH % 6 % (24-48); MEAN CORPUSCULAR HEMOGLOBIN 34 pg (25-35); MEAN CORPUSCULAR HGB CONC 34 g/dL (31-37); MEAN CORPUSCULAR VOLUME 101 fL (79-100); MONO # 0.5 x10^3/uL (0.0-1.1); MONO % 3 % (0-9); NEUT # 16.9 x10^3/uL (1.8-7.7); NEUT % 91 % (31-73); PLATELET COUNT 310 x10^3/uL (140-400); RED BLOOD COUNT 4.46 x10^6/uL (4.30-5.70); RED CELL DISTRIBUTION WIDTH 15.7 % (11.5-14.5); WHITE BLOOD COUNT 18.7 x10^3/uL (4.0-11.0)
[2020-03-21] MEDS: AMIODARONE HCL 200 MG TABLET. PO SCH (06:51)
--- NOTE | 2020-03-21 06:54 | NUR ---
around 6am pt went into afib with rvr again. cardiology paged [phone]. Dr. Blakely returned call at [phone] with order for amio bolus and continous drip.
[2020-03-21] MEDS: AMIODARONE 450 MG in IV DEXTROSE 5% 250 ML IV PRN (07:20)
--- NOTE | 2020-03-21 07:25 | PDOC ---
Infectious Disease Note Subjective Subjective Better today + Flatus No N/V/D/SOA/Rash or sig cough UOP has picked up more Less chills ROS ROS o/w neg Vital Sign Vital Signs Vital Signs Date Time Temp Pulse Resp B/P (MAP) Pulse Ox O2 Delivery O2 Flow Rate FiO2 03/21/20 07:19 133 119/63 03/21/20 06:00 20 97 Room Air 03/21/20 04:00 97.9 97.9 Physical Exam PHYSICAL EXAM CONSTITUTIONAL: He is a very pleasant gentleman. He is cooperative. He is lying in bed. He is comfortable. He is answering questions. HEENT: Pupils equal and reactive, but appears as early cataracts. He has normal conjunctivae. Oral cavity, pharynx was clear. NECK: Supple, with no JVD. LUNGS: Clear to auscultation, no wheeze.mild increased Resp rate HEART: S1, S2 mild tach. ABDOMEN: Soft, no guarding, no rebound. Positive but decreased bowel sounds. Mild distension EXTREMITIES: No clubbing, no edema. His extremities were cool to touch with decreased pulses bilaterally SCD. SKIN: Warm to touch without generalized rash. NEUROLOGIC: Nonfocal, answering questions. Moves all extremities. PSYCHIATRIC: Affect is very pleasant. LUE art line Labs Lab Laboratory Tests Test 03/20/20 14:22 03/20/20 23:00 03/21/20 06:00 Bedside Venous pH 7.25 (7.32-7.42) Bedside Venous pCO2 40 mmHg (41-51) Bedside Venous pO2 53 mmHg (20-40) Venous Blood HCO3 18 mmol/L (24-28) POC Venous O2 Saturation (Jacy) 82 % Bedside FiO2 21.0 Heparin Anti-Xa Act, Unfractionated 0.56 IU/mL (0.30-0.70) 0.59 IU/mL (0.30-0.70) White Blood Count 18.7 x10^3/uL (4.0-11.0) Red Blood Count 4.46 x10^6/uL (4.30-5.70) Hemoglobin 15.2 g/dL (13.0-17.5) Hematocrit 44.9 % (39.0-53.0) Mean Corpuscular Volume 101 fL (79-100) Mean Corpuscular Hemoglobin 34 pg (25-35) Mean Corpuscular Hemoglobin Concent 34 g/dL (31-37) Red Cell Distribution Width 15.7 % (11.5-14.5) Platelet Count 310 x10^3/uL (140-400) Neutrophils (%) (Auto) 91 % (31-73) Lymphocytes (%) (Auto) 6 % (24-48) Monocytes (%) (Auto) 3 % (0-9) Eosinophils (%) (Auto) 0 % (0-3) Basophils (%) (Auto) 1 % (0-3) Neutrophils # (Auto) 16.9 x10^3/uL (1.8-7.7) Lymphocytes # (Auto) 1.1 x10^3/uL (1.0-4.8) Monocytes # (Auto) 0.5 x10^3/uL (0.0-1.1) Eosinophils # (Auto) 0.1 x10^3/uL (0.0-0.7) Basophils # (Auto) 0.1 x10^3/uL (0.0-0.2) Sodium Level 132 mmol/L (136-145) Potassium Level 4.1 mmol/L (3.5-5.1) Chloride Level 102 mmol/L (98-107) Carbon Dioxide Level 19 mmol/L (21-32) Anion Gap 11 (6-14) Blood Urea Nitrogen 35 mg/dL (8-26) Creatinine 2.3 mg/dL (0.7-1.3) Estimated GFR (Cockcroft-Gault) 33.6 BUN/Creatinine Ratio 15 (6-20) Glucose Level 186 mg/dL (70-99) Calcium Level 8.6 mg/dL (8.5-10.1) Total Bilirubin 0.4 mg/dL (0.2-1.0) Aspartate Amino Transf (AST/SGOT) 31 U/L (15-37) Alanine Aminotransferase (ALT/SGPT) 34 U/L (16-63) Alkaline Phosphatase 74 U/L (46-116) Total Protein 6.4 g/dL (6.4-8.2) Albumin 1.4 g/dL (3.4-5.0) Albumin/Globulin Ratio 0.3 (1.0-1.7) Micro IMPRESSION: Hazy opacity at the right lung base, may represent atelectasis versus developing consolidative process. IMPRESSION: 1. No acute process identified within the chest, abdomen or pelvis. 2. Strandy opacities at the right lung base likely representing scarring or atelectasis. 3. Nephrolithiasis Objective Assessment Afib RVR Mild abd distension and discomfort - betterGI following Hypotension - on pressors off Vasopressin but on Levo still Leukocytosis - up but ? with new afib RVR ? concentration with all parameters up. Elevated Proca but also CRAIG Elevated Troponin - NSTEMI per card Right lung infiltrate CRAIG - better Coffee ground emesis - hgb better but has some abd distension COVID by report 02/22 with completed quarantine 03/11 reported neg since Neuropathy Plan Plan of Care CXR and BNP this am Cont Zosyn Added Doxy 03/19 Hold further Vanc - Dose Dapto times one F/u COVID LE arterial dopplers pending - I did not cancel F/u labs and cults GI/RenalCard following Critically ill D/w nursing ONEYDA JENSEN MD Mar 21, 2020 07:25
[2020-03-21] MEDS ORDERED: AMIODARONE 150 MG in IV DEXTROSE 5% 100ML 100 ML IV ONE (07:30)
--- NOTE | 2020-03-21 07:34 | RAD ---
AP chest. HISTORY: Increased respiratory rate AP view was taken of the chest. Right central line is unchanged. Heart is normal in size. There are changes from emphysema and chronic obstructive pulmonary disease. No new infiltrates are noted. IMPRESSION: 1. No new infiltrates. Electronically signed by: Damien Alexander MD (03/21/2020 7:31 AM) [facility]
[2020-03-21] MEDS: PANTOPRAZOLE IV PUSH 40 MG VIAL. IVP SCH (07:39)
[2020-03-21] MEDS: ASPIRIN ENTERIC COATED 81 MG TABLET.DR. PO SCH (07:39)
[2020-03-21] MEDS: LACTOBACILLUS RHAMNOSUS GG 1 CAPSULE. PO SCH ×2 (07:39→21:03)
[2020-03-21] MEDS: DOXYCYCLINE HYCLATE 100 MG in IV DEXTROSE 5% 100ML 100 ML IV SCH ×2 (07:40→21:03)
--- NOTE | 2020-03-21 11:30 | PDOC ---
[employer] [facility] PROGRESS NOTE Chief Complaint Chief Complaint Sepsis concerning for CAP versus cardiogenic shock A. fib RVR Acute on chronic systolic CHF EF 30 to 35% Troponinemia concerning for an STEMI Hematemesis concerning for GI bleed Recent COVID positive infectionrepeat test was negative, COVID ruled out CRAIG due to vasomotor nephropathy Hypertension Dyslipidemia Admit to ICU for pressors Cardiology consult, plan for left heart cath tomorrow Pending echo Strict I's and O's and sodium restriction GI consult, consider EGD if continues to bleed despite PPI Nephrology consult Infectious disease consult, continue broad-spectrum antibiotics Follow-up with blood cultures Pending repeat COVID testing Continue IV fluids SCD for DVT prophylaxis Protonix GI prophylaxis Cardiac diet Full code Discussed with RN and SW Dispo continue ICU care during vasopressor, pending left heart cath tomorrow Surrogate decision maker is self Total critical time spent 35 minutes History of Present Illness History of Present Illness 74-year-old male with past medical history of hypertension, dyslipidemia, CAD with stents and history of tobacco dependence. He presents to the ED with complaints of generalized weakness for the past 2 days. Patient originally tested positive for COVID on February 22 and he remained quarantined for [address] with his who also was tested positive. Patient was retested this past week and it was negative. Patient's also stated that the patient has fallen twice in the past few days and has been appearing more lethargic, confused, and with loss of appetite. Patient also endorses vomiting some blood denies chest pain, abdominal pain, diarrhea, loss of smell, dysuria or bloody stools. 03/21/2020 No acute events overnight. Telemetry monitoring event showed atrial fibrillation with RVR. Patient required amiodarone bolus and drip was started. Patient's chart, labs, images were reviewed and discussed with RN 03/20/2020 No acute events overnight. Patient seen and examined bedside. Continues to be on levo fed and vasopressin. Echo was completed yesterday showed ejection fraction of 30 to 35%. Pending evaluation by cardiology. Patient's chart, labs, images were reviewed and discussed with RN Vitals/I&O Vitals/I&O: Vital Signs Date Time Temp Pulse Resp B/P (MAP) Pulse Ox O2 Delivery O2 Flow Rate FiO2 03/21/20 11:00 115 28 119/77 (91) 92 Room Air 140/98 (112) 03/21/20 07:00 97.8 97.8 I & O 03/20/20 03/20/20 03/21/20 15:00 23:00 07:00 Intake Total 520 ml 2002.36 ml 920 ml Output Total 350 ml 450 ml 480 ml Balance 170 ml 1552.36 ml 440 ml Physical Exam Physical Exam: CONSTITUTIONAL: He is a very pleasant gentleman. He is cooperative. He is lying in bed. He is comfortable. He is answering questions. HEENT: Pupils equal and reactive, but appears as early cataracts. He has normal conjunctivae. Oral cavity, pharynx was clear. NECK: Supple, with no JVD. LUNGS: Clear to auscultation, no wheeze.mild increased Resp rate HEART: S1, S2 mild tach. ABDOMEN: Soft, no guarding, no rebound. Positive but decreased bowel sounds. Mild distension EXTREMITIES: No clubbing, no edema. His extremities were cool to touch with decreased pulses bilaterally SCD. SKIN: Warm to touch without generalized rash. NEUROLOGIC: Nonfocal, answering questions. Moves all extremities. PSYCHIATRIC: Affect is very pleasant. LUE art line General: Alert, Oriented X3, Cooperative, No acute distress Heart: Regular rate (SR no significant ectopies) Abdomen: Soft Extremities: No cyanosis, No edema Skin: No breakdown, No significant lesion Labs Labs: Laboratory Tests Test 03/20/20 14:22 03/20/20 23:00 03/21/20 06:00 Bedside Venous pH 7.25 (7.32-7.42) Bedside Venous pCO2 40 mmHg (41-51) Bedside Venous pO2 53 mmHg (20-40) Venous Blood HCO3 18 mmol/L (24-28) POC Venous O2 Saturation (Jacy) 82 % Bedside FiO2 21.0 Heparin Anti-Xa Act, Unfractionated 0.56 IU/mL (0.30-0.70) 0.59 IU/mL (0.30-0.70) White Blood Count 18.7 x10^3/uL (4.0-11.0) Red Blood Count 4.46 x10^6/uL (4.30-5.70) Hemoglobin 15.2 g/dL (13.0-17.5) Hematocrit 44.9 % (39.0-53.0) Mean Corpuscular Volume 101 fL (79-100) Mean Corpuscular Hemoglobin 34 pg (25-35) Mean Corpuscular Hemoglobin Concent 34 g/dL (31-37) Red Cell Distribution Width 15.7 % (11.5-14.5) Platelet Count 310 x10^3/uL (140-400) Neutrophils (%) (Auto) 91 % (31-73) Lymphocytes (%) (Auto) 6 % (24-48) Monocytes (%) (Auto) 3 % (0-9) Eosinophils (%) (Auto) 0 % (0-3) Basophils (%) (Auto) 1 % (0-3) Neutrophils # (Auto) 16.9 x10^3/uL (1.8-7.7) Lymphocytes # (Auto) 1.1 x10^3/uL (1.0-4.8) Monocytes # (Auto) 0.5 x10^3/uL (0.0-1.1) Eosinophils # (Auto) 0.1 x10^3/uL (0.0-0.7) Basophils # (Auto) 0.1 x10^3/uL (0.0-0.2) Sodium Level 132 mmol/L (136-145) Potassium Level 4.1 mmol/L (3.5-5.1) Chloride Level 102 mmol/L (98-107) Carbon Dioxide Level 19 mmol/L (21-32) Anion Gap 11 (6-14) Blood Urea Nitrogen 35 mg/dL (8-26) Creatinine 2.3 mg/dL (0.7-1.3) Estimated GFR (Cockcroft-Gault) 33.6 BUN/Creatinine Ratio 15 (6-20) Glucose Level 186 mg/dL (70-99) Calcium Level 8.6 mg/dL (8.5-10.1) Total Bilirubin 0.4 mg/dL (0.2-1.0) Aspartate Amino Transf (AST/SGOT) 31 U/L (15-37) Alanine Aminotransferase (ALT/SGPT) 34 U/L (16-63) Alkaline Phosphatase 74 U/L (46-116) MG-Nwq-N-Type Natriuretic Peptide > 59419 pg/mL (0-449) Total Protein 6.4 g/dL (6.4-8.2) Albumin 1.4 g/dL (3.4-5.0) Albumin/Globulin Ratio 0.3 (1.0-1.7) Assessment and Plan Assessmemt and Plan Problems Medical Problems: (1) Kidney failure Status: Acute (2) Septic shock Status: Acute Comment Review of Relevant I have reviewed the following items manny (where applicable) has been applied. Medications: Current Medications Medications (Trade) Dose Ordered Sig/Abe Route PRN Reason Start Time Stop Time Status Last Admin Dose Admin Lactobacillus Rhamnosus (Culturelle) 1 cap BID PO 03/20/20 21:00 03/21/20 07:39 Heparin Sodium/ Dextrose 250 ml @ 0 mls/hr CONT PRN IV PER PROTOCOL 03/20/20 16:30 03/20/20 17:02 Heparin Sodium (Porcine) (Heparin Sodium) 2,300 unit PRN Q6HRS PRN IV FOR UFH LEVEL LESS THAN 0.2 03/20/20 16:30 03/20/20 17:03 Amiodarone HCl 150 mg/Dextrose 103 ml @ 618 mls/hr 1X ONCE IV 03/20/20 18:15 03/20/20 18:24 DC 03/20/20 18:35 Amiodarone HCl 150 mg/Dextrose 103 ml @ 618 mls/hr 1X ONCE IV 03/21/20 07:30 03/21/20 07:39 DC 03/21/20 07:19 Amiodarone HCl 450 mg/Dextrose 259 ml @ 0 mls/hr CONT PRN IV SEE I/O RECORD 03/21/20 07:30 03/21/20 07:20 Justicifation of Admission Dx: Justifications for Admission: Justification of Admission Dx: Yes Aspiration Pneumonia: Hemodynamic Instability AYAKA RUIZ MD Mar 21, 2020 11:30
[2020-03-21] MEDS: ANTI-COAG MONITOR BY PHARMACY. MC PRN (11:54)
--- NOTE | 2020-03-21 12:09 | PDOC ---
Renal-Progress Notes Subjective Notes Notes FEELING BETTER History of Present Illness Hx of present illness STABLE Vitals Vitals Vital Signs Date Time Temp Pulse Resp B/P (MAP) Pulse Ox O2 Delivery O2 Flow Rate FiO2 03/21/20 11:00 115 28 119/77 (91) 92 Room Air 140/98 (112) 03/21/20 07:00 97.8 97.8 Weight Weight [ ] I.O. Intake and Output Intake and Output 03/21/20 07:00 Intake Total 3442.36 ml Output Total 1280 ml Balance 2162.36 ml Intake Oral 1470 ml IV Total 1972.36 ml Output Urine Total 1280 ml Labs Labs Laboratory Tests Test 03/20/20 14:22 03/20/20 23:00 03/21/20 06:00 Bedside Venous pH 7.25 (7.32-7.42) Bedside Venous pCO2 40 mmHg (41-51) Bedside Venous pO2 53 mmHg (20-40) Venous Blood HCO3 18 mmol/L (24-28) POC Venous O2 Saturation (Jacy) 82 % Bedside FiO2 21.0 Heparin Anti-Xa Act, Unfractionated 0.56 IU/mL (0.30-0.70) 0.59 IU/mL (0.30-0.70) White Blood Count 18.7 x10^3/uL (4.0-11.0) Red Blood Count 4.46 x10^6/uL (4.30-5.70) Hemoglobin 15.2 g/dL (13.0-17.5) Hematocrit 44.9 % (39.0-53.0) Mean Corpuscular Volume 101 fL (79-100) Mean Corpuscular Hemoglobin 34 pg (25-35) Mean Corpuscular Hemoglobin Concent 34 g/dL (31-37) Red Cell Distribution Width 15.7 % (11.5-14.5) Platelet Count 310 x10^3/uL (140-400) Neutrophils (%) (Auto) 91 % (31-73) Lymphocytes (%) (Auto) 6 % (24-48) Monocytes (%) (Auto) 3 % (0-9) Eosinophils (%) (Auto) 0 % (0-3) Basophils (%) (Auto) 1 % (0-3) Neutrophils # (Auto) 16.9 x10^3/uL (1.8-7.7) Lymphocytes # (Auto) 1.1 x10^3/uL (1.0-4.8) Monocytes # (Auto) 0.5 x10^3/uL (0.0-1.1) Eosinophils # (Auto) 0.1 x10^3/uL (0.0-0.7) Basophils # (Auto) 0.1 x10^3/uL (0.0-0.2) Sodium Level 132 mmol/L (136-145) Potassium Level 4.1 mmol/L (3.5-5.1) Chloride Level 102 mmol/L (98-107) Carbon Dioxide Level 19 mmol/L (21-32) Anion Gap 11 (6-14) Blood Urea Nitrogen 35 mg/dL (8-26) Creatinine 2.3 mg/dL (0.7-1.3) Estimated GFR (Cockcroft-Gault) 33.6 BUN/Creatinine Ratio 15 (6-20) Glucose Level 186 mg/dL (70-99) Calcium Level 8.6 mg/dL (8.5-10.1) Total Bilirubin 0.4 mg/dL (0.2-1.0) Aspartate Amino Transf (AST/SGOT) 31 U/L (15-37) Alanine Aminotransferase (ALT/SGPT) 34 U/L (16-63) Alkaline Phosphatase 74 U/L (46-116) VG-Kex-M-Type Natriuretic Peptide > 78688 pg/mL (0-449) Total Protein 6.4 g/dL (6.4-8.2) Albumin 1.4 g/dL (3.4-5.0) Albumin/Globulin Ratio 0.3 (1.0-1.7) Micro Micro Microbiology 03/19/20 Urine Culture - Final, Complete 03/18/20 Blood Culture - Preliminary, Resulted NO GROWTH AFTER 2 DAYS Review of Systems Constitutional: yes: other (PT IN ISOLATION) Ears/Nose/Throat: No: nasal congestion Physical Exam General Appearance: other (NO EXAM DUE TO COVID ISOLATION) Musculoskeletal: Osteoarthritis Assessment Assessment Assessment/Plan IMP LEUCOCYTOSIS SEPSIS COVID POS RECENTLY-OFF ISOLATION NOW HYPOTENSION [id number] DOWN TO 2.3 HYPONATREMIA-NA OF 129 PLAN HOLD ANY ANTIHYPERTENSIVES ANTIBIOTICS HYDRATION PRESSORS NEEDED WILL FOLLOW FIDENCIO ANGELES MD Mar 21, 2020 12:09
--- NOTE | 2020-03-21 14:23 | PDOC ---
CARDIOLOGY PROGRESS NOTE SUBJECTIVE: No new issues overnight. He still has dyspnea. OBJECTIVE: Vital Signs/I&O: Vital Signs Date Time Temp Pulse Resp B/P (MAP) Pulse Ox O2 Delivery O2 Flow Rate FiO2 03/21/20 13:00 101 28 121/75 (90) 95 Room Air 124/90 (101) 03/21/20 12:09 97.6 97.6 I & O 03/20/20 03/20/20 03/21/20 15:00 23:00 07:00 Intake Total 520 ml 2002.36 ml 920 ml Output Total 350 ml 450 ml 480 ml Balance 170 ml 1552.36 ml 440 ml Objective: He is a/o x 3. Tachypneic decreased breath sounds. soft abd no edema. CURRENT MEDICATIONS: Current Medications Medications (Trade) Dose Ordered Sig/Abe Route PRN Reason Start Time Stop Time Status Last Admin Dose Admin Lactobacillus Rhamnosus (Culturelle) 1 cap BID PO 03/20/20 21:00 03/21/20 07:39 Heparin Sodium/ Dextrose 250 ml @ 0 mls/hr CONT PRN IV PER PROTOCOL 03/20/20 16:30 03/20/20 17:02 Heparin Sodium (Porcine) (Heparin Sodium) 2,300 unit PRN Q6HRS PRN IV FOR UFH LEVEL LESS THAN 0.2 03/20/20 16:30 03/20/20 17:03 Amiodarone HCl 150 mg/Dextrose 103 ml @ 618 mls/hr 1X ONCE IV 03/20/20 18:15 03/20/20 18:24 DC 03/20/20 18:35 Amiodarone HCl 150 mg/Dextrose 103 ml @ 618 mls/hr 1X ONCE IV 03/21/20 07:30 03/21/20 07:39 DC 03/21/20 07:19 Amiodarone HCl 450 mg/Dextrose 259 ml @ 0 mls/hr CONT PRN IV SEE I/O RECORD 03/21/20 07:30 03/21/20 07:20 Info (Anti-Coagulation Monitoring By Pharmacy) 1 each PRN DAILY PRN MC SEE COMMENTS 03/21/20 12:00 03/21/20 11:54 DIAGNOSTIC TESTING: Labs reviewed, Cr 2.3 He is positive about 6 liters. Labs: Laboratory Tests 03/21/20 06:00 Laboratory Tests Test 03/20/20 14:22 03/20/20 23:00 03/21/20 06:00 Bedside Venous pH 7.25 (7.32-7.42) L Bedside Venous pCO2 40 mmHg (41-51) L Bedside Venous pO2 53 mmHg (20-40) H Venous Blood HCO3 18 mmol/L (24-28) L POC Venous O2 Saturation (Jacy) 82 % Bedside FiO2 21.0 Heparin Anti-Xa Act, Unfractionated 0.56 IU/mL (0.30-0.70) 0.59 IU/mL (0.30-0.70) White Blood Count 18.7 x10^3/uL (4.0-11.0) H Red Blood Count 4.46 x10^6/uL (4.30-5.70) Hemoglobin 15.2 g/dL (13.0-17.5) Hematocrit 44.9 % (39.0-53.0) Mean Corpuscular Volume 101 fL (79-100) H Mean Corpuscular Hemoglobin 34 pg (25-35) Mean Corpuscular Hemoglobin Concent 34 g/dL (31-37) Red Cell Distribution Width 15.7 % (11.5-14.5) H Platelet Count 310 x10^3/uL (140-400) Neutrophils (%) (Auto) 91 % (31-73) H Lymphocytes (%) (Auto) 6 % (24-48) L Monocytes (%) (Auto) 3 % (0-9) Eosinophils (%) (Auto) 0 % (0-3) Basophils (%) (Auto) 1 % (0-3) Neutrophils # (Auto) 16.9 x10^3/uL (1.8-7.7) H Lymphocytes # (Auto) 1.1 x10^3/uL (1.0-4.8) Monocytes # (Auto) 0.5 x10^3/uL (0.0-1.1) Eosinophils # (Auto) 0.1 x10^3/uL (0.0-0.7) Basophils # (Auto) 0.1 x10^3/uL (0.0-0.2) Sodium Level 132 mmol/L (136-145) L Potassium Level 4.1 mmol/L (3.5-5.1) Chloride Level 102 mmol/L (98-107) Carbon Dioxide Level 19 mmol/L (21-32) L Anion Gap 11 (6-14) Blood Urea Nitrogen 35 mg/dL (8-26) H Creatinine 2.3 mg/dL (0.7-1.3) H Estimated GFR (Cockcroft-Gault) 33.6 BUN/Creatinine Ratio 15 (6-20) Glucose Level 186 mg/dL (70-99) H Calcium Level 8.6 mg/dL (8.5-10.1) Total Bilirubin 0.4 mg/dL (0.2-1.0) Aspartate Amino Transf (AST/SGOT) 31 U/L (15-37) Alkaline Phosphatase 74 U/L (46-116) Total Protein 6.4 g/dL (6.4-8.2) Albumin 1.4 g/dL (3.4-5.0) L Albumin/Globulin Ratio 0.3 (1.0-1.7) L ASSESSMENT: 1. Acute on chronic systolic and diastolic HF 2. Vasoplegia with high pressor requirement. 3. NSTEMI 4. Afib with RVR PLAN: 1. His CVP is elevated, high BNP and has had positive I/O, plan for lasix x1, repeat CXR tomorrow. Currently he has no chest pain, plan for tx of afib and heart failure and reassess for cath in next 48 hours depending on improvement. Thanks Justicifation of Admission Dx: Justifications for Admission: Justification of Admission Dx: Yes Aspiration Pneumonia: Hemodynamic Instability LUISA DEAN MD Mar 21, 2020 14:23
[2020-03-21] MEDS ORDERED: FUROSEMIDE 40 MG/4 ML VIAL. IVP ONE (14:30)
[2020-03-21] MEDS: HEPARIN 25,000UTS/250ML PREMIX 250 ML IV PRN (15:30)
[2020-03-21] MEDS: HEPARIN for IV BOLUS 10,000 UNIT/10 ML VIAL. IV PRN (16:12)
[2020-03-22] VITALS (23 sets, daily range): BP systolic 84–121; BP diastolic 62–80
[2020-03-22] MEDS: PIPERACILLIN/TAZOBACTAM 2.25 GM in IV NORMAL SALINE 50ML 50 ML IV SCH ×5 (00:45→23:08)
[2020-03-22] MEDS: NOREPINEPHRINE VIAL 8 MG in IV DEXTROSE 5% 250 ML IV PRN (03:51)
[2020-03-22 05:35] LABS: BASO % 0 % (0-3); EOS # 0.2 x10^3/uL (0.0-0.7); EOS % 1 % (0-3); HEMATOCRIT 42.6 % (39.0-53.0); HEMOGLOBIN 14.5 g/dL (13.0-17.5); LYMPH # 1.5 x10^3/uL (1.0-4.8); LYMPH % 8 % (24-48); MEAN CORPUSCULAR HEMOGLOBIN 34 pg (25-35); MEAN CORPUSCULAR HGB CONC 34 g/dL (31-37); MEAN CORPUSCULAR VOLUME 100 fL (79-100); MONO # 0.6 x10^3/uL (0.0-1.1); MONO % 4 % (0-9); NEUT # 16.1 x10^3/uL (1.8-7.7); NEUT % 87 % (31-73); PLATELET COUNT 343 x10^3/uL (140-400); RED BLOOD COUNT 4.24 x10^6/uL (4.30-5.70); RED CELL DISTRIBUTION WIDTH 16.1 % (11.5-14.5); WHITE BLOOD COUNT 18.5 x10^3/uL (4.0-11.0)
[2020-03-22 05:49] LABS: CALCIUM 8.4 mg/dL (8.5-10.1); CREATININE 2.2 mg/dL (0.7-1.3); GFR 35.4; POTASSIUM 4.4 mmol/L (3.5-5.1)
[2020-03-22] MEDS: HEPARIN for IV BOLUS 10,000 UNIT/10 ML VIAL. IV PRN (06:28)
--- NOTE | 2020-03-22 07:43 | PDOC ---
Infectious Disease Note Subjective Subjective feeling better, no complaints ROS ROS no n/v/d/sob Vital Sign Vital Signs Vital Signs Date Time Temp Pulse Resp B/P (MAP) Pulse Ox O2 Delivery O2 Flow Rate FiO2 03/22/20 06:00 82 26 106/73 (84) 96 Room Air 114/74 (87) 03/22/20 00:00 97.8 97.8 Physical Exam PHYSICAL EXAM CONSTITUTIONAL: He is a very pleasant gentleman. He is cooperative. He is lying in bed. He is comfortable. He is answering questions. HEENT: Pupils equal and reactive, but appears as early cataracts. He has normal conjunctivae. Oral cavity, pharynx was clear. NECK: Supple, with no JVD. LUNGS: Clear to auscultation, no wheeze.mild increased Resp rate HEART: S1, S2 mild tach. ABDOMEN: Soft, no guarding, no rebound. Positive but decreased bowel sounds. Mild distension EXTREMITIES: No clubbing, no edema. His extremities were cool to touch with decreased pulses bilaterally SCD. SKIN: Warm to touch without generalized rash. NEUROLOGIC: Nonfocal, answering questions. Moves all extremities. PSYCHIATRIC: Affect is very pleasant. LUE art line Labs Lab Laboratory Tests Test 03/21/20 14:40 03/21/20 15:50 03/21/20 22:30 03/22/20 05:00 Heparin Anti-Xa Act, Unfractionated < 0.10 IU/mL (0.30-0.70) < 0.10 IU/mL (0.30-0.70) 0.21 IU/mL (0.30-0.70) 0.12 IU/mL (0.30-0.70) White Blood Count 18.5 x10^3/uL (4.0-11.0) Red Blood Count 4.24 x10^6/uL (4.30-5.70) Hemoglobin 14.5 g/dL (13.0-17.5) Hematocrit 42.6 % (39.0-53.0) Mean Corpuscular Volume 100 fL (79-100) Mean Corpuscular Hemoglobin 34 pg (25-35) Mean Corpuscular Hemoglobin Concent 34 g/dL (31-37) Red Cell Distribution Width 16.1 % (11.5-14.5) Platelet Count 343 x10^3/uL (140-400) Neutrophils (%) (Auto) 87 % (31-73) Lymphocytes (%) (Auto) 8 % (24-48) Monocytes (%) (Auto) 4 % (0-9) Eosinophils (%) (Auto) 1 % (0-3) Basophils (%) (Auto) 0 % (0-3) Neutrophils # (Auto) 16.1 x10^3/uL (1.8-7.7) Lymphocytes # (Auto) 1.5 x10^3/uL (1.0-4.8) Monocytes # (Auto) 0.6 x10^3/uL (0.0-1.1) Eosinophils # (Auto) 0.2 x10^3/uL (0.0-0.7) Basophils # (Auto) 0.0 x10^3/uL (0.0-0.2) Sodium Level 134 mmol/L (136-145) Potassium Level 4.4 mmol/L (3.5-5.1) Chloride Level 102 mmol/L (98-107) Carbon Dioxide Level 21 mmol/L (21-32) Anion Gap 11 (6-14) Blood Urea Nitrogen 36 mg/dL (8-26) Creatinine 2.2 mg/dL (0.7-1.3) Estimated GFR (Cockcroft-Gault) 35.4 Glucose Level 158 mg/dL (70-99) Calcium Level 8.4 mg/dL (8.5-10.1) Procalcitonin 2.80 ng/mL (0.00-0.10) Micro Microbiology 03/19/20 Urine Culture - Final, Complete 03/18/20 Blood Culture - Preliminary, Resulted NO GROWTH AFTER 3 DAYS Objective Assessment Afib RVR Mild abd distension and discomfort - betterGI following Hypotension - on pressors off Vasopressin but on Levo still Leukocytosis - up but ? with new afib RVR ? concentration with all parameters up. Elevated Proca but also CRAIG Elevated Troponin - NSTEMI per card Right lung infiltrate CRAIG - better Coffee ground emesis - hgb better but has some abd distension COVID by report 02/22 with completed quarantine 03/11 reported neg since Neuropathy Plan Plan of Care Cont Zosyn Added Doxy 03/19 F/u COVID F/u labs and cults GI/RenalCard following D/w nursing MOISES GRESHAM MD Mar 22, 2020 07:43
--- NOTE | 2020-03-22 08:11 | RAD ---
DUPLEX LOWER EXTREMITY BILAT Indication: Reason: ? PAD COLD EXTREMITIES / Spl. Instructions: / History: Comparison: None. Procedure: Real-time grayscale, color flow Doppler, and Doppler spectral waveform analysis of the arterial system of the lower extremity is performed. Findings: Triphasic or biphasic waveforms are present in the common femoral artery, superficial femoral artery, popliteal artery, anterior tibial artery, posterior tibial artery and dorsalis pedis artery. No significant velocity elevation bilaterally. Mild scattered atheromatous plaque bilaterally. IMPRESSION: 1. No hemodynamically significant arterial stenosis. 2. Mild scattered atheromatous plaque bilaterally. Electronically signed by: Curtis Blanco DO (03/22/2020 8:08 AM) [id number]
[2020-03-22] MEDS: ASPIRIN ENTERIC COATED 81 MG TABLET.DR. PO SCH (08:16)
[2020-03-22] MEDS: LACTOBACILLUS RHAMNOSUS GG 1 CAPSULE. PO SCH ×2 (08:16→20:31)
[2020-03-22] MEDS: DOXYCYCLINE HYCLATE 100 MG in IV DEXTROSE 5% 100ML 100 ML IV SCH ×2 (08:20→20:31)
[2020-03-22] MEDS: PANTOPRAZOLE IV PUSH 40 MG VIAL. IVP SCH (08:21)
[2020-03-22] MEDS: AMIODARONE 450 MG in IV DEXTROSE 5% 250 ML IV PRN (08:54)
[2020-03-22] MEDS: AMIODARONE HCL 200 MG TABLET. PO SCH ×2 (09:00→16:43)
--- NOTE | 2020-03-22 09:00 | NUR ---
0900 PO amniodorone not administered because pt on amnio drip. will verify with cardiology when they round
--- NOTE | 2020-03-22 09:25 | PDOC ---
SUBJECTIVE ROS No N/V/D States feeling better, Mild SOB when talking Off pressors OBJECTIVE Vital Signs Vital Signs Date Time Temp Pulse Resp B/P (MAP) Pulse Ox O2 Delivery O2 Flow Rate FiO2 03/22/20 06:00 82 26 106/73 (84) 96 Room Air 114/74 (87) 03/22/20 00:00 97.8 97.8 I & 0 Intake and Output 03/22/20 07:00 Intake Total 5510.06 ml Output Total 1625 ml Balance 3885.06 ml Intake Oral 600 ml IV Total 4910.06 ml Output Urine Total 1625 ml PHYSICAL EXAM Physical Exam GEN Mils sob when talking HEENT:Oral cavity, pharynx was clear. NECK: Supple LUNGS: Clear to auscultation, HEART: S1, S2 ABDOMEN: Soft, no guarding, EXTREMITIES: No clubbing, no edema. SKIN: Warm to touch without generalized rash. NEUROLOGIC: Nonfocal, answering questions. Moves all extremities. PSYCHIATRIC: pleasant. DIAGNOSIS/ASSESSMENT Assessment & Plan CRAIG-ATN - Improving Cr 2.2 , peaked at 3.9 E-Lytes stable Supportive care, Avoid Nephrotoxins HypoNatremia- Improving, mildly low Sepsis COVID-19 - Recent +02/24/2020,now neg x2 Hypotension -- off pressors AFib RVR on Amiodarone Right lung infiltrate Coffee ground emesis - hgb stable CAD: multiple stents to LAD 07/2009 Hx of secondary polycythemia with associated COPD/tobaccoism COMMENT/RELEVANT DATA Meds Current Medications Medications (Trade) Dose Ordered Sig/Abe Start Time Stop Time Status Last Admin Dose Admin Amiodarone HCl (Cordarone) 400 mg DAILY 03/21/20 07:00 Amiodarone HCl 150 mg/Dextrose 103 ml @ 618 mls/hr 1X ONCE 03/21/20 07:30 03/21/20 07:39 DC 03/21/20 07:19 618 MLS/HR Amiodarone HCl 450 mg/Dextrose 259 ml @ 0 mls/hr CONT PRN 03/21/20 07:30 03/22/20 08:54 DC 03/22/20 08:54 16.7 MLS/HR Aspirin (Ecotrin) 81 mg [id number] 03/20/20 08:00 03/22/20 08:16 81 MG Ceftriaxone Sodium (Rocephin) 1 gm 1X ONCE 03/18/20 17:30 03/18/20 17:46 DC Daptomycin 500 mg/ Sodium Chloride 50 ml @ 100 mls/hr ONCE ONCE 03/20/20 08:00 03/20/20 08:29 DC 03/20/20 08:21 100 MLS/HR Doxycycline Hyclate 100 mg/ Dextrose 100 ml @ 50 mls/hr Q12HR 03/19/20 09:00 03/22/20 08:20 50 MLS/HR Furosemide (Lasix) 40 mg 1X ONCE 03/21/20 14:30 03/21/20 14:31 DC 03/21/20 14:43 40 MG Heparin Sodium (Porcine) (Heparin Sodium) 2,300 unit PRN Q6HRS PRN 03/20/20 16:30 03/22/20 06:28 2,300 UNIT Heparin Sodium/ Dextrose 250 ml @ 0 mls/hr CONT PRN 03/20/20 16:30 03/21/20 15:30 8.8 MLS/HR Info (Anti-Coagulation Monitoring By Pharmacy) 1 each PRN DAILY PRN 03/21/20 12:00 03/21/20 11:54 1 EACH Lactobacillus Rhamnosus (Culturelle) 1 cap BID 03/20/20 21:00 03/22/20 08:16 1 CAP Norepinephrine Bitartrate 8 mg/ Dextrose 258 ml @ 17.609 mls/ hr CONT PRN 03/19/20 01:00 03/22/20 03:51 10.565 MLS/HR Ondansetron HCl (Zofran) 8 mg 1X ONCE 03/18/20 18:45 03/18/20 18:46 DC Pantoprazole Sodium (PROTONIX VIAL for IV PUSH) 40 mg DAILYAC 03/19/20 07:30 03/22/20 08:21 40 MG Pantoprazole Sodium 80 mg/ Sodium Chloride 100 ml @ 10 mls/hr Q10H 03/18/20 18:45 03/19/20 01:30 DC 03/18/20 19:20 10 MLS/HR Piperacillin Sod/ Tazobactam Sod 2.25 gm/Sodium Chloride 50 ml @ 100 mls/hr Q6HRS 03/19/20 07:00 03/22/20 05:43 100 MLS/HR Piperacillin Sod/ Tazobactam Sod 4.5 gm/Sodium Chloride 100 ml @ 200 mls/hr 1X ONCE 03/18/20 17:45 03/18/20 18:14 DC 03/18/20 18:10 200 MLS/HR Sodium Chloride 500 ml @ 500 mls/hr 1X ONCE 03/19/20 01:00 03/19/20 01:59 DC 03/19/20 01:26 500 MLS/HR Vancomycin HCl 2.25 gm/Sodium Chloride 500 ml @ 250 mls/hr 1X ONCE 03/18/20 18:00 03/18/20 19:59 UNV Vancomycin HCl 2 gm/Sodium Chloride 500 ml @ 250 mls/hr 1X ONCE 03/18/20 18:45 03/18/20 20:44 DC 03/18/20 18:11 250 MLS/HR Vasopressin 20 unit/Dextrose 101 ml @ 12 mls/hr CONT PRN 03/19/20 11:15 03/20/20 08:56 12 MLS/HR Lab Laboratory Tests Test 03/21/20 14:40 03/21/20 15:50 03/21/20 22:30 03/22/20 05:00 Heparin Anti-Xa Act, Unfractionated < 0.10 IU/mL (0.30-0.70) < 0.10 IU/mL (0.30-0.70) 0.21 IU/mL (0.30-0.70) 0.12 IU/mL (0.30-0.70) White Blood Count 18.5 x10^3/uL (4.0-11.0) Red Blood Count 4.24 x10^6/uL (4.30-5.70) Hemoglobin 14.5 g/dL (13.0-17.5) Hematocrit 42.6 % (39.0-53.0) Mean Corpuscular Volume 100 fL (79-100) Mean Corpuscular Hemoglobin 34 pg (25-35) Mean Corpuscular Hemoglobin Concent 34 g/dL (31-37) Red Cell Distribution Width 16.1 % (11.5-14.5) Platelet Count 343 x10^3/uL (140-400) Neutrophils (%) (Auto) 87 % (31-73) Lymphocytes (%) (Auto) 8 % (24-48) Monocytes (%) (Auto) 4 % (0-9) Eosinophils (%) (Auto) 1 % (0-3) Basophils (%) (Auto) 0 % (0-3) Neutrophils # (Auto) 16.1 x10^3/uL (1.8-7.7) Lymphocytes # (Auto) 1.5 x10^3/uL (1.0-4.8) Monocytes # (Auto) 0.6 x10^3/uL (0.0-1.1) Eosinophils # (Auto) 0.2 x10^3/uL (0.0-0.7) Basophils # (Auto) 0.0 x10^3/uL (0.0-0.2) Sodium Level 134 mmol/L (136-145) Potassium Level 4.4 mmol/L (3.5-5.1) Chloride Level 102 mmol/L (98-107) Carbon Dioxide Level 21 mmol/L (21-32) Anion Gap 11 (6-14) Blood Urea Nitrogen 36 mg/dL (8-26) Creatinine 2.2 mg/dL (0.7-1.3) Estimated GFR (Cockcroft-Gault) 35.4 Glucose Level 158 mg/dL (70-99) Calcium Level 8.4 mg/dL (8.5-10.1) Procalcitonin 2.80 ng/mL (0.00-0.10) Results All relevant outside records, renal labs, imaging studies, telemetry/EKG's were reviewed. Justicifation of Admission Dx: Justifications for Admission: Justification of Admission Dx: Yes Aspiration Pneumonia: Hemodynamic Instability DAKOTA PEREZ MD Mar 22, 2020 09:25
--- NOTE | 2020-03-22 09:28 | PDOC ---
[employer] PROGRESS NOTE Chief Complaint Chief Complaint Sepsis concerning for CAP versus cardiogenic shock A. fib RVR Acute on chronic systolic CHF EF 30 to 35% Troponinemia concerning for an STEMI Hematemesis concerning for GI bleed Recent COVID positive infectionrepeat test was negative, COVID ruled out CRAIG due to vasomotor nephropathy Hypertension Dyslipidemia Admit to ICU for pressors Cardiology consult, plan for left heart cath Pending echo Strict I's and O's and sodium restriction GI consult, consider EGD if continues to bleed despite PPI Nephrology consult Infectious disease consult, continue broad-spectrum antibiotics Follow-up with blood cultures Pending repeat COVID testing Continue IV fluids SCD for DVT prophylaxis Protonix GI prophylaxis Cardiac diet Full code Discussed with RN and SW Dispo continue ICU care during vasopressor, pending left heart cath tomorrow Surrogate decision maker is self Total critical time spent 35 minutes History of Present Illness History of Present Illness 74-year-old male with past medical history of hypertension, dyslipidemia, CAD with stents and history of tobacco dependence. He presents to the ED with complaints of generalized weakness for the past 2 days. Patient originally tested positive for COVID on February 22 and he remained quarantined for 2 weeks after with his who also was tested positive. Patient was retested this past week and it was negative. Patient's also stated that the patient has fallen twice in the past few days and has been appearing more lethargic, confused, and with loss of appetite. Patient also endorses vomiting some blood denies chest pain, abdominal pain, diarrhea, loss of smell, dysuria or bloody stools. 03/20: No acute events overnight. Patient seen and examined bedside. Continues to be on levo fed and vasopressin. Echo was completed yesterday showed ejection fraction of 30 to 35%. Pending evaluation by cardiology. Patient's chart, labs, images were reviewed and discussed with RN 03/21: No acute events overnight. Telemetry monitoring event showed atrial fibrillation with RVR. Patient required amiodarone bolus and drip was started. Patient's chart, labs, images were reviewed and discussed with RN Seen bedside in ICU. Arterial line and blood pressure cuff with systolic blood pressure in the low 90s has just had his Levophed down titrated. Patient with sinus rhythm on monitor. Afebrile. WBC 18.5, BMP unchanged creatinine 2.2. Vitals/I&O Vitals/I&O: Vital Signs Date Time Temp Pulse Resp B/P (MAP) Pulse Ox O2 Delivery O2 Flow Rate FiO2 03/22/20 08:00 78 22 94/64 (74) 94 Room Air 87/71 (76) 03/22/20 07:00 97.1 97.1 I & O 03/21/20 03/21/20 03/22/20 15:00 23:00 07:00 Intake Total 153 ml 3510.06 ml 1847 ml Output Total 500 ml 825 ml 300 ml Balance -347 ml 2685.06 ml 1547 ml Physical Exam Physical Exam: CONSTITUTIONAL: He is a very pleasant gentleman. He is cooperative. He is lying in bed. He is comfortable. He is answering questions. HEENT: Pupils equal and reactive, but appears as early cataracts. He has normal conjunctivae. Oral cavity, pharynx was clear. NECK: Supple, with no JVD. LUNGS: Clear to auscultation, no wheeze.mild increased Resp rate HEART: S1, S2 mild tach. ABDOMEN: Soft, no guarding, no rebound. Positive but decreased bowel sounds. Mild distension EXTREMITIES: No clubbing, no edema. His extremities were cool to touch with decreased pulses bilaterally SCD. SKIN: Warm to touch without generalized rash. NEUROLOGIC: Nonfocal, answering questions. Moves all extremities. PSYCHIATRIC: Affect is very pleasant. LUE art line General: Alert, Oriented X3, Cooperative, No acute distress Heart: Regular rate (SR no significant ectopies) Abdomen: Soft Extremities: No cyanosis, No edema Skin: No breakdown, No significant lesion Labs Labs: Laboratory Tests Test 03/21/20 14:40 03/21/20 15:50 03/21/20 22:30 03/22/20 05:00 Heparin Anti-Xa Act, Unfractionated < 0.10 IU/mL (0.30-0.70) < 0.10 IU/mL (0.30-0.70) 0.21 IU/mL (0.30-0.70) 0.12 IU/mL (0.30-0.70) White Blood Count 18.5 x10^3/uL (4.0-11.0) Red Blood Count 4.24 x10^6/uL (4.30-5.70) Hemoglobin 14.5 g/dL (13.0-17.5) Hematocrit 42.6 % (39.0-53.0) Mean Corpuscular Volume 100 fL (79-100) Mean Corpuscular Hemoglobin 34 pg (25-35) Mean Corpuscular Hemoglobin Concent 34 g/dL (31-37) Red Cell Distribution Width 16.1 % (11.5-14.5) Platelet Count 343 x10^3/uL (140-400) Neutrophils (%) (Auto) 87 % (31-73) Lymphocytes (%) (Auto) 8 % (24-48) Monocytes (%) (Auto) 4 % (0-9) Eosinophils (%) (Auto) 1 % (0-3) Basophils (%) (Auto) 0 % (0-3) Neutrophils # (Auto) 16.1 x10^3/uL (1.8-7.7) Lymphocytes # (Auto) 1.5 x10^3/uL (1.0-4.8) Monocytes # (Auto) 0.6 x10^3/uL (0.0-1.1) Eosinophils # (Auto) 0.2 x10^3/uL (0.0-0.7) Basophils # (Auto) 0.0 x10^3/uL (0.0-0.2) Sodium Level 134 mmol/L (136-145) Potassium Level 4.4 mmol/L (3.5-5.1) Chloride Level 102 mmol/L (98-107) Carbon Dioxide Level 21 mmol/L (21-32) Anion Gap 11 (6-14) Blood Urea Nitrogen 36 mg/dL (8-26) Creatinine 2.2 mg/dL (0.7-1.3) Estimated GFR (Cockcroft-Gault) 35.4 Glucose Level 158 mg/dL (70-99) Calcium Level 8.4 mg/dL (8.5-10.1) Procalcitonin 2.80 ng/mL (0.00-0.10) Assessment and Plan Assessmemt and Plan Problems Medical Problems: (1) Kidney failure Status: Acute (2) Septic shock Status: Acute Comment Review of Relevant I have reviewed the following items manny (where applicable) has been applied. Medications: Current Medications Medications (Trade) Dose Ordered Sig/Abe Route PRN Reason Start Time Stop Time Status Last Admin Dose Admin Info (Anti-Coagulation Monitoring By Pharmacy) 1 each PRN DAILY PRN MC SEE COMMENTS 03/21/20 12:00 03/21/20 11:54 Furosemide (Lasix) 40 mg 1X ONCE IVP 03/21/20 14:30 03/21/20 14:31 DC 03/21/20 14:43 Justicifation of Admission Dx: Justifications for Admission: Justification of Admission Dx: Yes Aspiration Pneumonia: Hemodynamic Instability CURTIS GORDON MD Mar 22, 2020 09:28
--- NOTE | 2020-03-22 09:40 | PDOC ---
Subjective: Subjective: No GI complaints. Tolerating diet - ate eggs and toast for breakfast, still working on Ensure. Has stooled. No bleeding. Objective: Objective: No GI concerns per nurse, off pressors this morning. Vital Signs: Vital Signs Date Time Temp Pulse Resp B/P (MAP) Pulse Ox O2 Delivery O2 Flow Rate FiO2 03/22/20 08:00 78 22 94/64 (74) 94 Room Air 87/71 (76) 03/22/20 07:00 97.1 97.1 Labs: Laboratory Tests Test 03/21/20 14:40 03/21/20 15:50 03/21/20 22:30 03/22/20 05:00 Heparin Anti-Xa Act, Unfractionated < 0.10 IU/mL < 0.10 IU/mL 0.21 IU/mL 0.12 IU/mL White Blood Count 18.5 x10^3/uL Red Blood Count 4.24 x10^6/uL Hemoglobin 14.5 g/dL Hematocrit 42.6 % Mean Corpuscular Volume 100 fL Mean Corpuscular Hemoglobin 34 pg Mean Corpuscular Hemoglobin Concent 34 g/dL Red Cell Distribution Width 16.1 % Platelet Count 343 x10^3/uL Neutrophils (%) (Auto) 87 % Lymphocytes (%) (Auto) 8 % Monocytes (%) (Auto) 4 % Eosinophils (%) (Auto) 1 % Basophils (%) (Auto) 0 % Neutrophils # (Auto) 16.1 x10^3/uL Lymphocytes # (Auto) 1.5 x10^3/uL Monocytes # (Auto) 0.6 x10^3/uL Eosinophils # (Auto) 0.2 x10^3/uL Basophils # (Auto) 0.0 x10^3/uL Sodium Level 134 mmol/L Potassium Level 4.4 mmol/L Chloride Level 102 mmol/L Carbon Dioxide Level 21 mmol/L Anion Gap 11 Blood Urea Nitrogen 36 mg/dL Creatinine 2.2 mg/dL Estimated GFR (Cockcroft-Gault) 35.4 Glucose Level 158 mg/dL Calcium Level 8.4 mg/dL Procalcitonin 2.80 ng/mL BLOOD CULTURE Preliminary NO GROWTH AFTER 3 DAYS URINE CULTURE Final Final No Growth on 03/20/20 at 0935 Imaging: LE Duplex 03/21 IMPRESSION: 1. No hemodynamically significant arterial stenosis. 2. Mild scattered atheromatous plaque bilaterally. CXR 03/21 IMPRESSION: 1. No new infiltrates. PE: GEN: NAD LUNGS: decreased anteriorly, a bit breathless at times while talking HEART: RR ABD: S/NT, ?some distention NEURO/PSYCH: A & O 3 A/P: Coffee-ground emesis - no recurrence, Hgb WNL CHF, A Fib, NSTEMI, leukocytosis, CRAIG (better) H/o COVID - negative now -- Change to PO PPI since eating. Justicifation of Admission Dx: Justifications for Admission: Justification of Admission Dx: Yes Aspiration Pneumonia: Hemodynamic Instability TU NEWTON Mar 22, 2020 09:40
[2020-03-22] MEDS: ANTI-COAG MONITOR BY PHARMACY. MC PRN (09:54)
[2020-03-22] MEDS: HEPARIN 25,000UTS/250ML PREMIX 250 ML IV PRN ×2 (10:22→20:38)
[2020-03-22] MEDS: IV NORMAL SALINE 1000ML BAG 1,000 ML IV SCH ×2 (10:24)
[2020-03-22] MEDS ORDERED: FUROSEMIDE 40 MG/4 ML VIAL. IVP ONE (12:30)
--- NOTE | 2020-03-22 12:55 | NUR ---
SS following up with discharge planning. SS reviewed pt chart and discussed with pt RN. Pt currently on room air. Pt on IV Doxycycline and IV Zosyn. Pt on Heparin drip. COVID19 negative. SS will continue to follow for discharge planning.
--- NOTE | 2020-03-22 13:14 | PDOC ---
SHARLA DELAROSA FLAP MAKER 03/22/20 1314: CARDIO Progress Notes Date and Time Date of Service 03/22/20 Time of Evaluation 1310 Subjective Subjective: No Chest Pain, No Palpitations, Other (breathing improved.) Vitals Vitals Vital Signs Date Time Temp Pulse Resp B/P (MAP) Pulse Ox O2 Delivery O2 Flow Rate FiO2 03/22/20 12:00 97.5 77 24 95/74 (81) 97 Room Air 97.5 Weight Weight [ ] Input and Output Intake and Output Intake and Output 03/22/20 07:00 Intake Total 5510.06 ml Output Total 1625 ml Balance 3885.06 ml Intake Oral 600 ml IV Total 4910.06 ml Output Urine Total 1625 ml Laboratory Labs Laboratory Tests Test 03/21/20 14:40 03/21/20 15:50 03/21/20 22:30 03/22/20 05:00 Heparin Anti-Xa Act, Unfractionated < 0.10 IU/mL (0.30-0.70) < 0.10 IU/mL (0.30-0.70) 0.21 IU/mL (0.30-0.70) 0.12 IU/mL (0.30-0.70) White Blood Count 18.5 x10^3/uL (4.0-11.0) Red Blood Count 4.24 x10^6/uL (4.30-5.70) Hemoglobin 14.5 g/dL (13.0-17.5) Hematocrit 42.6 % (39.0-53.0) Mean Corpuscular Volume 100 fL (79-100) Mean Corpuscular Hemoglobin 34 pg (25-35) Mean Corpuscular Hemoglobin Concent 34 g/dL (31-37) Red Cell Distribution Width 16.1 % (11.5-14.5) Platelet Count 343 x10^3/uL (140-400) Neutrophils (%) (Auto) 87 % (31-73) Lymphocytes (%) (Auto) 8 % (24-48) Monocytes (%) (Auto) 4 % (0-9) Eosinophils (%) (Auto) 1 % (0-3) Basophils (%) (Auto) 0 % (0-3) Neutrophils # (Auto) 16.1 x10^3/uL (1.8-7.7) Lymphocytes # (Auto) 1.5 x10^3/uL (1.0-4.8) Monocytes # (Auto) 0.6 x10^3/uL (0.0-1.1) Eosinophils # (Auto) 0.2 x10^3/uL (0.0-0.7) Basophils # (Auto) 0.0 x10^3/uL (0.0-0.2) Sodium Level 134 mmol/L (136-145) Potassium Level 4.4 mmol/L (3.5-5.1) Chloride Level 102 mmol/L (98-107) Carbon Dioxide Level 21 mmol/L (21-32) Anion Gap 11 (6-14) Blood Urea Nitrogen 36 mg/dL (8-26) Creatinine 2.2 mg/dL (0.7-1.3) Estimated GFR (Cockcroft-Gault) 35.4 Glucose Level 158 mg/dL (70-99) Calcium Level 8.4 mg/dL (8.5-10.1) Procalcitonin 2.80 ng/mL (0.00-0.10) Test 03/22/20 12:20 Heparin Anti-Xa Act, Unfractionated 0.63 IU/mL (0.30-0.70) Microbiology Micro Microbiology 03/19/20 Urine Culture - Final, Complete 03/18/20 Blood Culture - Preliminary, Resulted NO GROWTH AFTER 3 DAYS Review of Systems Constitutional: yes: other (PT IN ISOLATION) Ears/Nose/Throat: No: nasal congestion Physical Exam HEENT: Neck Supple W Full Motion Chest: Symmetric LUNGS: Other (Diminished bases ) Heart: S1S2, RRR Abdomen: Soft N/T Extremities: Other (trace bilateral LE edema ) Neurology: alert, oriented, follow commands Assessment Assessment 1. Sepsis/shock with possible pneumonia 2. Dyspnea with acute on chronic systolic CHF; Echo with LVEF 35% 3. AFIB with RVR; rate now controlled. on oral Amiodarone. Anticoagulated with heparin 4. Severe CRAIG 5. NSTEMI: possible type 2, demand ischemia. Trop at 1.2. CP free. 6. CAD: multiple stents to LAD 07/2009 7. Recent Covid-19: +02/24/2020,now neg x2 8. Hypertension; CP low end. 9. Hyperlipidmia 10. Abdominal pain/hematemesis; Hgb stable. Recommendations Continue Amiodarone therapy for rhythm maintenance Anticoagulation with heparin gtt. Diuresis with monitoring of lab Home ACEi and Toprol on hold with CRAIG, hypotension Pressor support as warranted ASA therapy Consider for R and L HC Justicifation of Admission Dx: Justifications for Admission: Justification of Admission Dx: Yes Aspiration Pneumonia: Hemodynamic Instability LUISA DEAN MD 03/22/20 2313: CARDIO Progress Notes Plan Plan Pt. seen and examined. Agree with above GRAVITY PROSPECTING OPERATOR HELPER note. Patient is nearly 7 L positive. needs diuresis. Supportive care. Will consider for outpt ischemic testing. Thanks SHARLA DELAROSA APRN Mar 22, 2020 13:14 LUISA DEAN MD Mar 22, 2020 23:13
--- NOTE | 2020-03-22 13:40 | EKG ---
[facility] [address] [place] [address] Test Date: 2020-03-18 Test Time: 17:44:43 Pat Name: YURI RESENDIZ Department: Room: Gender: M Geospatial Specialist: : 1945 Requested By: BAKARI MOYA Order Number: [id number] Reading MD: Measurements Intervals [place] Rate: 92 P: 90 SD: 184 QRS: -89 QRSD: 146 T: 70 QT: 392 QTc: 490 Interpretive Statements SINUS RHYTHM ABNORMAL LEFT AXIS DEVIATION S1,S2,S3 PATTERN LEFT ANTERIOR FASCICULAR BLOCK NON SPECIFIC INTRAVENTRICULAR BLOCK ABNORMAL ECG RI6.01 No previous ECG available for comparison
[2020-03-23] VITALS (11 sets, daily range): BP systolic 98–124; BP diastolic 66–92
[2020-03-23 03:44] LABS: CALCIUM 8.8 mg/dL (8.5-10.1); GFR 39.5; POTASSIUM 4.7 mmol/L (3.5-5.1)
[2020-03-23] MEDS: PIPERACILLIN/TAZOBACTAM 2.25 GM in IV NORMAL SALINE 50ML 50 ML IV SCH (05:00)
[2020-03-23 05:24] LABS: HEMATOCRIT 42.2 % (39.0-53.0); HEMOGLOBIN 14.2 g/dL (13.0-17.5); RED BLOOD COUNT 4.2 x10^6/uL (4.30-5.70); WHITE BLOOD COUNT 16.5 x10^3/uL (4.0-11.0)
[2020-03-23] MEDS: LACTOBACILLUS RHAMNOSUS GG 1 CAPSULE. PO SCH ×2 (08:20→21:10)
[2020-03-23] MEDS: AMIODARONE HCL 200 MG TABLET. PO SCH (08:21)
[2020-03-23] MEDS: ASPIRIN ENTERIC COATED 81 MG TABLET.DR. PO SCH (08:21)
[2020-03-23] MEDS: DOXYCYCLINE HYCLATE 100 MG in IV DEXTROSE 5% 100ML 100 ML IV SCH (08:21)
[2020-03-23] MEDS: PANTOPRAZOLE 40 MG TABLET.DR. PO SCH (08:21)
--- NOTE | 2020-03-23 08:26 | PDOC ---
[employer] PROGRESS NOTE Date of Service DOS: DATE: 03/23/20 TIME: 08:24 Chief Complaint Chief Complaint Sepsis concerning for CAP versus cardiogenic shock A. fib RVR Acute on chronic systolic CHF EF 30 to 35% Troponin elevation concerning for NSTEMI Hematemesis concerning for GI bleed Recent COVID positive infectionrepeat test was negative, COVID ruled out CRAIG due to vasomotor nephropathy Hypertension Dyslipidemia Admitted to ICU for pressors Cardiology consult, plan for left heart cath Pending echo Strict I's and O's and sodium restriction GI consult, consider EGD if continues to bleed despite PPI Nephrology consult Infectious disease consult, continue broad-spectrum antibiotics Follow-up with blood cultures Pending repeat COVID testing Continue IV fluids SCD for DVT prophylaxis Protonix GI prophylaxis Cardiac diet Full code Discussed with RN and SW Dispo continue ICU care during vasopressor, pending left heart cath tomorrow Surrogate decision maker is self Total critical time spent 35 minutes History of Present Illness History of Present Illness Mr Shaw is a 74 yo male with past medical history of hypertension, dyslipidemia, CAD with stents and history of tobacco dependence. He presents to the ED with complaints of generalized weakness for the past 2 days. Patient originally tested positive for COVID on February 22 and he remained quarantined for 2 weeks after with his who also was tested positive. Patient was retested this past week and it was negative. Patient's also stated that the patient has fallen twice in the past few days and has been appearing more lethargic, confused, and with loss of appetite. Patient also endorses vomiting some blood denies chest pain, abdominal pain, diarrhea, loss of smell, dysuria or bloody stools. 03/20: No acute events overnight. Patient seen and examined bedside. Continues to be on levo fed and vasopressin. Echo was completed yesterday showed ejection fraction of 30 to 35%. Pending evaluation by cardiology. Patient's chart, labs, images were reviewed and discussed with RN 2: No acute events overnight. Telemetry monitoring event showed atrial fibrillation with RVR. Patient required amiodarone bolus and drip was started. Patient's chart, labs, images were reviewed and discussed with RN /3: Seen bedside in ICU. Arterial line and blood pressure cuff with systolic blood pressure in the low 90s has just had his Levophed down titrated. Patient with sinus rhythm on monitor. Afebrile. WBC 18.5, BMP unchanged creatinine 2.2. Transferred from ICU to CVC overnight. WBC down to 16.5, CR 2. He is feeling much better. Off antibiotics currently. Still with little bit of abdominal fullness still on heparin gtt. had 3 formed stools in the last 24 hours. Vitals/I&O Vitals/I&O: Vital Signs Date Time Temp Pulse Resp B/P (MAP) Pulse Ox O2 Delivery O2 Flow Rate FiO2 03/23/20 08:21 64 121/78 03/23/20 02:49 97.4 20 93 Nasal Cannula 2.0 97.4 I & O 03/22/20 03/22/20 03/23/20 15:00 23:00 07:00 Intake Total 749 ml 100 ml 492 ml Output Total 405 ml 350 ml 450 ml Balance 344 ml -250 ml 42 ml Physical Exam Physical Exam: CONSTITUTIONAL: He is a very pleasant gentleman. He is cooperative. He is lying in bed. He is comfortable. He is answering questions. HEENT: Pupils equal and reactive, but appears as early cataracts. He has normal conjunctivae. Oral cavity, pharynx was clear. NECK: Supple, with no JVD. LUNGS: Clear to auscultation, no wheeze.mild increased Resp rate HEART: S1, S2 mild tach. ABDOMEN: Soft, no guarding, no rebound. Positive but decreased bowel sounds. Mild distension EXTREMITIES: No clubbing, no edema. His extremities were cool to touch with decreased pulses bilaterally SCD. SKIN: Warm to touch without generalized rash. NEUROLOGIC: Nonfocal, answering questions. Moves all extremities. PSYCHIATRIC: Affect is very pleasant. LUE art line General: Alert, Oriented X3, Cooperative, No acute distress Heart: Regular rate (SR no significant ectopies) Abdomen: Soft Extremities: No cyanosis, No edema Skin: No breakdown, No significant lesion Labs Labs: Laboratory Tests Test 03/22/20 12:20 03/22/20 18:20 03/23/20 01:25 Heparin Anti-Xa Act, Unfractionated 0.63 IU/mL (0.30-0.70) 0.54 IU/mL (0.30-0.70) 0.24 IU/mL (0.30-0.70) White Blood Count 16.5 x10^3/uL (4.0-11.0) Red Blood Count 4.20 x10^6/uL (4.30-5.70) Hemoglobin 14.2 g/dL (13.0-17.5) Hematocrit 42.2 % (39.0-53.0) Mean Corpuscular Volume 100 fL (79-100) Mean Corpuscular Hemoglobin 34 pg (25-35) Mean Corpuscular Hemoglobin Concent 34 g/dL (31-37) Red Cell Distribution Width 16.0 % (11.5-14.5) Platelet Count 367 x10^3/uL (140-400) Sodium Level 137 mmol/L (136-145) Potassium Level 4.7 mmol/L (3.5-5.1) Chloride Level 104 mmol/L (98-107) Carbon Dioxide Level 25 mmol/L (21-32) Anion Gap 8 (6-14) Blood Urea Nitrogen 40 mg/dL (8-26) Creatinine 2.0 mg/dL (0.7-1.3) Estimated GFR (Cockcroft-Gault) 39.5 Glucose Level 111 mg/dL (70-99) Calcium Level 8.8 mg/dL (8.5-10.1) Assessment and Plan Assessmemt and Plan Problems Medical Problems: (1) Kidney failure Status: Acute (2) Septic shock Status: Acute Comment Review of Relevant I have reviewed the following items manny (where applicable) has been applied. Medications: Current Medications Medications (Trade) Dose Ordered Sig/Abe Route PRN Reason Start Time Stop Time Status Last Admin Dose Admin Pantoprazole Sodium (Protonix) 40 mg DAILYAC PO 03/23/20 07:30 03/23/20 08:21 Furosemide (Lasix) 40 mg 1X ONCE IVP 03/22/20 12:30 03/22/20 12:31 DC 03/22/20 12:33 Justicifation of Admission Dx: Justifications for Admission: Justification of Admission Dx: Yes Aspiration Pneumonia: Hemodynamic Instability CURTIS GORDON MD Mar 23, 2020 08:26
--- NOTE | 2020-03-23 09:12 | PDOC ---
DATE OF SERVICE DATE: 03/23/20 TIME: 09:11 SUBJECTIVE ROS Transferred out of ICU, states feeling better OBJECTIVE Vital Signs Vital Signs Date Time Temp Pulse Resp B/P (MAP) Pulse Ox O2 Delivery O2 Flow Rate FiO2 03/23/20 08:21 64 121/78 03/23/20 07:00 97.5 22 96 Nasal Cannula 2.0 97.5 I & 0 Intake and Output 03/23/20 07:00 Intake Total 1341 ml Output Total 1205 ml Balance 136 ml Intake Oral 450 ml IV Total 891 ml Output Urine Total 1205 ml # Voids 1 # Bowel Movements 4 PHYSICAL EXAM Physical Exam GEN NAD HEENT:OM moist NECK: Supple LUNGS: Clear to auscultation, HEART: S1, S2 ABDOMEN: Soft, no guarding, EXTREMITIES: No clubbing, no edema. SKIN: Warm to touch without generalized rash. NEUROLOGIC: grossly normal PSYCHIATRIC: pleasant. DIAGNOSIS/ASSESSMENT Assessment & Plan CRAIG-ATN - Renal function improving ,Cr peaked at 3.9 E-Lytes stable Supportive care, Avoid Nephrotoxins HypoNatremia- resolved Sepsis COVID-19 - Recent +02/24/2020,now neg x2 Hypotension -- BP improved and stable AFib RVR on Amiodarone Right lung infiltrate Coffee ground emesis - hgb stable CAD: multiple stents to LAD 07/2009 Hx of secondary polycythemia with associated COPD/tobaccoism COMMENT/RELEVANT DATA Meds Current Medications Medications (Trade) Dose Ordered Sig/Abe Start Time Stop Time Status Last Admin Dose Admin Amiodarone HCl (Cordarone) 400 mg DAILY 03/21/20 07:00 03/23/20 08:21 400 MG Amiodarone HCl 150 mg/Dextrose 103 ml @ 618 mls/hr 1X ONCE 03/21/20 07:30 03/21/20 07:39 DC 03/21/20 07:19 618 MLS/HR Amiodarone HCl 450 mg/Dextrose 259 ml @ 0 mls/hr CONT PRN 03/21/20 07:30 03/22/20 08:54 DC 03/22/20 08:54 16.7 MLS/HR Aspirin (Ecotrin) 81 mg DAILYWBKFT 03/20/20 08:00 03/23/20 08:21 81 MG Ceftriaxone Sodium (Rocephin) 1 gm 1X ONCE 03/18/20 17:30 03/18/20 17:46 DC Daptomycin 500 mg/ Sodium Chloride 50 ml @ 100 mls/hr ONCE ONCE 03/20/20 08:00 03/20/20 08:29 DC 03/20/20 08:21 100 MLS/HR Doxycycline Hyclate 100 mg/ Dextrose 100 ml @ 50 mls/hr Q12HR 03/19/20 09:00 03/23/20 08:21 50 MLS/HR Furosemide (Lasix) 40 mg 1X ONCE 03/22/20 12:30 03/22/20 12:31 DC 03/22/20 12:33 40 MG Heparin Sodium (Porcine) (Heparin Sodium) 2,300 unit PRN Q6HRS PRN 03/20/20 16:30 03/22/20 06:28 2,300 UNIT Heparin Sodium/ Dextrose 250 ml @ 0 mls/hr CONT PRN 03/20/20 16:30 03/22/20 20:38 15.8 MLS/HR Info (Anti-Coagulation Monitoring By Pharmacy) 1 each PRN DAILY PRN 03/21/20 12:00 03/22/20 09:54 1 EACH Lactobacillus Rhamnosus (Culturelle) 1 cap BID 03/20/20 21:00 03/23/20 08:20 1 CAP Norepinephrine Bitartrate 8 mg/ Dextrose 258 ml @ 17.609 mls/ hr CONT PRN 03/19/20 01:00 03/22/20 03:51 10.565 MLS/HR Ondansetron HCl (Zofran) 8 mg 1X ONCE 03/18/20 18:45 03/18/20 18:46 DC Pantoprazole Sodium (PROTONIX VIAL for IV PUSH) 40 mg DAILYAC 03/19/20 07:30 03/22/20 09:41 DC 03/22/20 08:21 40 MG Pantoprazole Sodium (Protonix) 40 mg DAILYAC 03/23/20 07:30 03/23/20 08:21 40 MG Pantoprazole Sodium 80 mg/ Sodium Chloride 100 ml @ 10 mls/hr Q10H 03/18/20 18:45 03/19/20 01:30 DC 03/18/20 19:20 10 MLS/HR Piperacillin Sod/ Tazobactam Sod 2.25 gm/Sodium Chloride 50 ml @ 100 mls/hr Q6HRS 03/19/20 07:00 03/23/20 05:00 100 MLS/HR Piperacillin Sod/ Tazobactam Sod 4.5 gm/Sodium Chloride 100 ml @ 200 mls/hr 1X ONCE 03/18/20 17:45 03/18/20 18:14 DC 03/18/20 18:10 200 MLS/HR Sodium Chloride 500 ml @ 500 mls/hr 1X ONCE 03/19/20 01:00 03/19/20 01:59 DC 03/19/20 01:26 500 MLS/HR Vancomycin HCl 2.25 gm/Sodium Chloride 500 ml @ 250 mls/hr 1X ONCE 03/18/20 18:00 03/18/20 19:59 UNV Vancomycin HCl 2 gm/Sodium Chloride 500 ml @ 250 mls/hr 1X ONCE 03/18/20 18:45 03/18/20 20:44 DC 03/18/20 18:11 250 MLS/HR Vasopressin 20 unit/Dextrose 101 ml @ 12 mls/hr CONT PRN 03/19/20 11:15 03/20/20 08:56 12 MLS/HR Lab Laboratory Tests Test 03/22/20 12:20 03/22/20 18:20 03/23/20 01:25 03/23/20 08:08 Heparin Anti-Xa Act, Unfractionated 0.63 IU/mL (0.30-0.70) 0.54 IU/mL (0.30-0.70) 0.24 IU/mL (0.30-0.70) 0.97 IU/mL (0.30-0.70) White Blood Count 16.5 x10^3/uL (4.0-11.0) Red Blood Count 4.20 x10^6/uL (4.30-5.70) Hemoglobin 14.2 g/dL (13.0-17.5) Hematocrit 42.2 % (39.0-53.0) Mean Corpuscular Volume 100 fL (79-100) Mean Corpuscular Hemoglobin 34 pg (25-35) Mean Corpuscular Hemoglobin Concent 34 g/dL (31-37) Red Cell Distribution Width 16.0 % (11.5-14.5) Platelet Count 367 x10^3/uL (140-400) Sodium Level 137 mmol/L (136-145) Potassium Level 4.7 mmol/L (3.5-5.1) Chloride Level 104 mmol/L (98-107) Carbon Dioxide Level 25 mmol/L (21-32) Anion Gap 8 (6-14) Blood Urea Nitrogen 40 mg/dL (8-26) Creatinine 2.0 mg/dL (0.7-1.3) Estimated GFR (Cockcroft-Gault) 39.5 Glucose Level 111 mg/dL (70-99) Calcium Level 8.8 mg/dL (8.5-10.1) Results All relevant outside records, renal labs, imaging studies, telemetry/EKG's were reviewed. Justicifation of Admission Dx: Justifications for Admission: Justification of Admission Dx: Yes Aspiration Pneumonia: Hemodynamic Instability DAKOTA PEREZ MD Mar 23, 2020 09:12
--- NOTE | 2020-03-23 09:20 | NUR ---
SS following up with discharge planning. SS reviewed pt chart and discussed with pt RN. Pt transferred from ICU. Pt is currently requiring oxygen. COVID19 negative. Pt on IV Zosyn and IV Doxycycline and Heparin drip. Per RN, PT/OT to be ordered today. SS will continue to follow for discharge planning.
--- NOTE | 2020-03-23 09:29 | PDOC ---
Date of Service: DATE: 03/23/20 TIME: 09:26 Subjective: Subjective: Feeling better. Going to drink Ensure. Three stools yesterday. No abd pain, no bleeding. Objective: Objective: D/w nurse - only ate sausage for breakfast. Vital Signs: Vital Signs Date Time Temp Pulse Resp B/P (MAP) Pulse Ox O2 Delivery O2 Flow Rate FiO2 03/23/20 08:21 64 121/78 03/23/20 07:00 97.5 22 96 Nasal Cannula 2.0 97.5 Labs: Laboratory Tests Test 03/22/20 12:20 03/22/20 18:20 03/23/20 01:25 03/23/20 08:08 Heparin Anti-Xa Act, Unfractionated 0.63 IU/mL 0.54 IU/mL 0.24 IU/mL 0.97 IU/mL White Blood Count 16.5 x10^3/uL Red Blood Count 4.20 x10^6/uL Hemoglobin 14.2 g/dL Hematocrit 42.2 % Mean Corpuscular Volume 100 fL Mean Corpuscular Hemoglobin 34 pg Mean Corpuscular Hemoglobin Concent 34 g/dL Red Cell Distribution Width 16.0 % Platelet Count 367 x10^3/uL Sodium Level 137 mmol/L Potassium Level 4.7 mmol/L Chloride Level 104 mmol/L Carbon Dioxide Level 25 mmol/L Anion Gap 8 Blood Urea Nitrogen 40 mg/dL Creatinine 2.0 mg/dL Estimated GFR (Cockcroft-Gault) 39.5 Glucose Level 111 mg/dL Calcium Level 8.8 mg/dL PE: GEN: NAD, watching tv LUNGS: decreased, NC 2L HEART: RRR ABD: S/ND/NT NEURO/PSYCH: A & O 3 A/P: Coffee-ground emesis - no recurrence, normal Hgb CHF, A Fib, NSTEMI Leukocytosis, CRAIG - better -- Stable from GI-standpoint, continue same. Justicifation of Admission Dx: Justifications for Admission: Justification of Admission Dx: Yes Aspiration Pneumonia: Hemodynamic Instability TU NEWTON Mar 23, 2020 09:29
--- NOTE | 2020-03-23 09:50 | PDOC ---
Infectious Disease Note Subjective Subjective feeling better, no complaints ROS ROS no n/v/d/sob/fever Vital Sign Vital Signs Vital Signs Date Time Temp Pulse Resp B/P (MAP) Pulse Ox O2 Delivery O2 Flow Rate FiO2 03/23/20 08:21 64 121/78 03/23/20 08:00 Nasal Cannula 2.0 03/23/20 07:00 97.5 22 96 97.5 Physical Exam PHYSICAL EXAM CONSTITUTIONAL: He is a very pleasant gentleman. He is cooperative. He is lying in bed. He is comfortable. He is answering questions. HEENT: Pupils equal and reactive, but appears as early cataracts. He has normal conjunctivae. Oral cavity, pharynx was clear. NECK: Supple, with no JVD. LUNGS: Clear to auscultation, no wheeze.mild increased Resp rate HEART: S1, S2 mild tach. ABDOMEN: Soft, no guarding, no rebound. Positive but decreased bowel sounds. Mild distension EXTREMITIES: No clubbing, no edema. His extremities were cool to touch with decreased pulses bilaterally SCD. SKIN: Warm to touch without generalized rash. NEUROLOGIC: Nonfocal, answering questions. Moves all extremities. PSYCHIATRIC: Affect is very pleasant. LUE art line Labs Lab Laboratory Tests Test 03/22/20 12:20 03/22/20 18:20 03/23/20 01:25 03/23/20 08:08 Heparin Anti-Xa Act, Unfractionated 0.63 IU/mL (0.30-0.70) 0.54 IU/mL (0.30-0.70) 0.24 IU/mL (0.30-0.70) 0.97 IU/mL (0.30-0.70) White Blood Count 16.5 x10^3/uL (4.0-11.0) Red Blood Count 4.20 x10^6/uL (4.30-5.70) Hemoglobin 14.2 g/dL (13.0-17.5) Hematocrit 42.2 % (39.0-53.0) Mean Corpuscular Volume 100 fL (79-100) Mean Corpuscular Hemoglobin 34 pg (25-35) Mean Corpuscular Hemoglobin Concent 34 g/dL (31-37) Red Cell Distribution Width 16.0 % (11.5-14.5) Platelet Count 367 x10^3/uL (140-400) Sodium Level 137 mmol/L (136-145) Potassium Level 4.7 mmol/L (3.5-5.1) Chloride Level 104 mmol/L (98-107) Carbon Dioxide Level 25 mmol/L (21-32) Anion Gap 8 (6-14) Blood Urea Nitrogen 40 mg/dL (8-26) Creatinine 2.0 mg/dL (0.7-1.3) Estimated GFR (Cockcroft-Gault) 39.5 Glucose Level 111 mg/dL (70-99) Calcium Level 8.8 mg/dL (8.5-10.1) Micro Microbiology 03/19/20 Urine Culture - Final, Complete 03/18/20 Blood Culture - Preliminary, Resulted NO GROWTH AFTER 3 DAYS Objective Assessment Afib RVR Mild abd distension and discomfort - betterGI following Hypotension - on pressors off Vasopressin but on Levo still Leukocytosis - up but ? with new afib RVR ? concentration with all parameters up. Elevated Proca but also CRAIG Elevated Troponin - NSTEMI per card Right lung infiltrate CRAIG - better Coffee ground emesis - hgb better but has some abd distension COVID by report 02/22 with completed quarantine 03/11 reported neg since Neuropathy Plan Plan of Care d/c antibiotics D/w nursing MOISES GRESHAM MD Mar 23, 2020 09:50
--- NOTE | 2020-03-23 11:00 | PDOC ---
CARDIO Progress Notes Date and Time Date of Service 03/23/20 Time of Evaluation 1040 Subjective Subjective: No Chest Pain, No Palpitations, Other (breathing improved.) Vitals Vitals Vital Signs Date Time Temp Pulse Resp B/P (MAP) Pulse Ox O2 Delivery O2 Flow Rate FiO2 03/23/20 10:50 97.3 62 15 110/67 (81) 96 Nasal Cannula 2.0 97.3 Weight Weight [ ] Input and Output Intake and Output Intake and Output 03/23/20 07:00 Intake Total 1341 ml Output Total 1205 ml Balance 136 ml Intake Oral 450 ml IV Total 891 ml Output Urine Total 1205 ml # Voids 1 # Bowel Movements 4 Laboratory Labs Laboratory Tests Test 03/22/20 12:20 03/22/20 18:20 03/23/20 01:25 03/23/20 08:08 Heparin Anti-Xa Act, Unfractionated 0.63 IU/mL (0.30-0.70) 0.54 IU/mL (0.30-0.70) 0.24 IU/mL (0.30-0.70) 0.97 IU/mL (0.30-0.70) White Blood Count 16.5 x10^3/uL (4.0-11.0) Red Blood Count 4.20 x10^6/uL (4.30-5.70) Hemoglobin 14.2 g/dL (13.0-17.5) Hematocrit 42.2 % (39.0-53.0) Mean Corpuscular Volume 100 fL (79-100) Mean Corpuscular Hemoglobin 34 pg (25-35) Mean Corpuscular Hemoglobin Concent 34 g/dL (31-37) Red Cell Distribution Width 16.0 % (11.5-14.5) Platelet Count 367 x10^3/uL (140-400) Sodium Level 137 mmol/L (136-145) Potassium Level 4.7 mmol/L (3.5-5.1) Chloride Level 104 mmol/L (98-107) Carbon Dioxide Level 25 mmol/L (21-32) Anion Gap 8 (6-14) Blood Urea Nitrogen 40 mg/dL (8-26) Creatinine 2.0 mg/dL (0.7-1.3) Estimated GFR (Cockcroft-Gault) 39.5 Glucose Level 111 mg/dL (70-99) Calcium Level 8.8 mg/dL (8.5-10.1) Microbiology Micro Microbiology 03/19/20 Urine Culture - Final, Complete 03/18/20 Blood Culture - Preliminary, Resulted NO GROWTH AFTER 4 DAYS Review of Systems Constitutional: yes: other (PT IN ISOLATION) Ears/Nose/Throat: No: nasal congestion Physical Exam HEENT: Neck Supple W Full Motion Chest: Symmetric LUNGS: Other (bibasilar crackles ) Heart: S1S2, RRR Abdomen: Soft N/T Extremities: Other (trace bilateral LE edema ) Neurology: alert, oriented, follow commands Assessment Assessment 1. Sepsis/shock with possible pneumonia. off pressor support 2. Dyspnea with acute on chronic systolic CHF, and possible PNA; Echo with LVEF 35% 3. AFIB with RVR; rate now controlled. on oral Amiodarone. 4. Severe CRAIG; Cr improving 5. NSTEMI: possible type 2, demand ischemia. Trop at 1.2. CP free. 6. CAD: multiple stents to LAD 07/2009 7. Recent Covid-19: +02/24/2020,now neg x2 8. Hypertension; BP low end. 9. Hyperlipidmia 10. Abdominal pain/hematemesis; no further bleeding. Hgb remains stable. Recommendations Continue Amiodarone therapy for rhythm maintenance Stop heparin gtt. Likely need more aggressive diuresis. D/w primary mercantile agent. Will plan for RHC for further evaluation of volume status. R/b/a discussed with patient and he is agreeable. Home ACEi and Toprol on hold with CRAIG, hypotension Resume BB therapy when BP consistently adequate ASA therapy Probable outpatient ischemic evaluation Will likely add Eliquis following C for stroke prophylaxis. Justicifation of Admission Dx: Justifications for Admission: Justification of Admission Dx: Yes Aspiration Pneumonia: Hemodynamic Instability SHARLA DELAROSA APRN Mar 23, 2020 11:00
[2020-03-23] MEDS: HEPARIN 25,000UTS/250ML PREMIX 250 ML IV PRN (11:34)
--- NOTE | 2020-03-23 13:02 | NUR ---
SS following up with discharge planning. PT/OT recommended acute rehabilitation. SS met with pt in room and discussed discharge planning and acute rehabilitation. Pt declined acute rehabilitation and requested referral be sent to [facility], ; fax [phone]. SS phoned and faxed referral as requested. SS will await acceptance decision and will proceed accordingly.
[2020-03-23] MEDS ORDERED: LIDOCAINE 1% Multi-Dose 20 ML VIAL. ONE (13:31)
[2020-03-23] MEDS ORDERED: MIDAZOLAM HCL/PF 2 MG/2 ML VIAL. ONE (13:38)
[2020-03-23] MEDS ORDERED: fentaNYL PF VIAL 100 MCG/2 ML VIAL ONE (13:38)
[2020-03-23] MEDS ORDERED: FUROSEMIDE 40 MG/4 ML VIAL. IVP SCH (14:00)
[2020-03-23] MEDS ORDERED: MIDAZOLAM HCL/PF 2 MG/2 ML VIAL. IV ONE (14:15)
[2020-03-23] MEDS ORDERED: fentaNYL PF VIAL 100 MCG/2 ML VIAL IV ONE (14:15)
[2020-03-23] MEDS ORDERED: LIDOCAINE 1% Multi-Dose 20 ML VIAL. INJ ONE (14:15)
--- NOTE | 2020-03-23 14:42 | CONS ---
DATE OF CONSULTATION: REASON FOR REDICTATION: Poor fast brim pouncer quality. HISTORY OF PRESENT ILLNESS: This is a 74-year-old -German male with past medical history significant for hypertension and hyperlipidemia, history of coronary artery disease and tobacco dependence, who was admitted to [facility] with generalized weakness for the past 2 days, associated with some fatigue. He underwent COVID testing, which was unrevealing. He subsequently had several falls, appeared to be more lethargic with change in mental status and loss of appetite. He also had some coffee-ground emesis leading to his admission. The patient presently denies any nausea or vomiting. States that his abdomen is, however, persistently tender and he is anorexic. No dysphagia or odynophagia is encountered. He is not a drinker or smoker at this time. Has had no melenic stools and has no additional complaints. PAST MEDICAL HISTORY: Hyperlipidemia, hypertension. ALLERGIES: None. MEDICATIONS: Per MAR and do include piperacillin, norepinephrine, vasoconstrictive pressor support. FAMILY AND SOCIAL HISTORY: He is retired. Does not drink or smoke. PAST SURGICAL HISTORY: He is status post hernia repair surgically. REVIEW OF SYSTEMS: Per records. PHYSICAL EXAMINATION: GENERAL: Reveals a well-nourished, well-developed -German male. VITAL SIGNS: Pulse is 80, respiratory rate 16, blood pressure 117/70. He is afebrile. LUNGS: Did reveal decreased breath sounds. CARDIOVASCULAR: Reveals S1, S2 without S3, S4 or appreciable murmur. ABDOMEN: Reveals soft abdomen with normoactive bowel sounds with mild diffuse tenderness. EXTREMITIES: Reveals no cyanosis, clubbing or edema. LABORATORY STUDIES: On admission did include hemoglobin of 12.8, hematocrit 38.1, white count of 10.7, platelet count of 222,000. Sodium 152, potassium 4.1, chloride 102, bicarbonate was 19, BUN 36, creatinine 2.3, glucose 186, calcium 8.6, total bilirubin 0.4, AST of 31, ALT of 34, alkaline phosphatase of 74. CT of the abdomen, chest and pelvis revealed no acute changes. No free air or obstruction or blood clots. Evidence of nephrolithiasis. IMPRESSION AND PLAN: Nausea and vomiting with coffee-ground emesis, most likely secondary to non-STEMI inferior wall myocardial infarction. Differential does include peptic ulcer disease, sepsis and/or aspirin induced ulcer disease. Therefore, recommend medical therapy in view of the acute non-STEMI with serial blood counts and consider potential endoscopy if the patient should have ongoing bleed. ORLY HARDY MD DR: JANNETH/brett JOB#: [id number] / [id number]
--- NOTE | 2020-03-23 15:54 | CARD ---
MR#: [id number] Date of Study: 03/23/2020 Ordering Physician: LUISA DEAN, Referring Physician: LUISA DEAN, Tech: GELY JACKSON RTR APPROVED REPORT Technologist: GELY JACKSON RTR Nurse: Ila Payne R.N. Procedure(s) performed: MODERATE SEDATION TIME: 50 MINUTES FLUORO TIME: 2.7 MIN DOSE: 4.1 GYCM2 Right heart catheterization HISTORY : The patient is a 74 year-old male with a history of . INDICATION The indication(s) include : dyspnea. Heart Failure Heart Failure: Yes If Yes, Newly Diagnosed: No If Yes, HF Type: Diastolic Systolic If Yes, NYHA Class: Class III PROCEDURE NARRATIVE After appropriate informed consent the patient was brought to the catheterization laboratory for eval uation of hemodynamics and cardiac filling pressures in the setting of exertional dyspnea. The right groin was prepped and draped in usual sterile fashion. Under lidocaine 1% local anesthesia and using ultrasound and fluoroscopic landmarks a 8 Macanese sheath was placed in the right common femoral vein via the modified Seldinger technique. Next, a 8 Macanese PA catheter was advanced through the right heart chambers into the wedge position. Pressures and saturations were obtained. The right heart catheter was then removed and hemostasis wa s achieved via manual compression at the level of the common femoral vein. No acute complications no olga Findings: RA 06/30/7 RV 47/3/12 PA 45/19/27 Wedge 6 mmHg Thermodilution cardiac output 3.8 Trupti cardiac output 4.4 Pulmonary capillary wedge saturation 91% PA saturation 62% Conclusion 1. Normal biventricular filling pressures 2. Pulmonary hypertension, likely secondary to intrinsic lung disease given normal wedge pressure. 3. Low cardiac output. Recommendations Aggressive medical therapy. Signed by : Luisa Dean, Electronically Approved : 03/23/2020 15:53:40
[2020-03-24 03:00] VITALS: BP 130/70
[2020-03-24 07:00] VITALS: BP 123/69
[2020-03-24 07:03] LABS: CALCIUM 8.8 mg/dL (8.5-10.1); CREATININE 1.7 mg/dL (0.7-1.3); GFR 47.5; POTASSIUM 4.2 mmol/L (3.5-5.1)
--- NOTE | 2020-03-24 08:04 | PDOC ---
Infectious Disease Note Subjective Subjective feeling better, no complaints ROS ROS no n/v/d/sob Vital Sign Vital Signs Vital Signs Date Time Temp Pulse Resp B/P (MAP) Pulse Ox O2 Delivery O2 Flow Rate FiO2 03/24/20 03:00 98.2 55 130/70 (90) 95 Nasal Cannula 2.0 98.2 03/23/20 19:00 18 Physical Exam PHYSICAL EXAM CONSTITUTIONAL: He is a very pleasant gentleman. He is cooperative. He is lying in bed. He is comfortable. He is answering questions. HEENT: Pupils equal and reactive, but appears as early cataracts. He has normal conjunctivae. Oral cavity, pharynx was clear. NECK: Supple, with no JVD. LUNGS: Clear to auscultation, no wheeze.mild increased Resp rate HEART: S1, S2 mild tach. ABDOMEN: Soft, no guarding, no rebound. Positive but decreased bowel sounds. Mild distension EXTREMITIES: No clubbing, no edema. His extremities were cool to touch with decreased pulses bilaterally SCD. SKIN: Warm to touch without generalized rash. NEUROLOGIC: Nonfocal, answering questions. Moves all extremities. PSYCHIATRIC: Affect is very pleasant. LUE art line Labs Lab Laboratory Tests Test 03/23/20 08:08 03/24/20 06:30 Heparin Anti-Xa Act, Unfractionated 0.97 IU/mL (0.30-0.70) Sodium Level 144 mmol/L (136-145) Potassium Level 4.2 mmol/L (3.5-5.1) Chloride Level 109 mmol/L (98-107) Carbon Dioxide Level 27 mmol/L (21-32) Anion Gap 8 (6-14) Blood Urea Nitrogen 37 mg/dL (8-26) Creatinine 1.7 mg/dL (0.7-1.3) Estimated GFR (Cockcroft-Gault) 47.5 Glucose Level 81 mg/dL (70-99) Calcium Level 8.8 mg/dL (8.5-10.1) Micro Microbiology 03/19/20 Urine Culture - Final, Complete 03/18/20 Blood Culture - Preliminary, Resulted NO GROWTH AFTER 3 DAYS Objective Assessment Afib RVR Mild abd distension and discomfort - betterGI following Hypotension - on pressors off Vasopressin but on Levo still Leukocytosis - up but ? with new afib RVR ? concentration with all parameters up. Elevated Proca but also CRAIG Elevated Troponin - NSTEMI per card Right lung infiltrate CRAIG - better Coffee ground emesis - hgb better but has some abd distension COVID by report 02/22 with completed quarantine 03/11 reported neg since Neuropathy Plan Plan of Care off antibiotics ok to d/c to SNF D/w nursing MOISES GRESHAM MD Mar 24, 2020 08:04
[2020-03-24] MEDS: LACTOBACILLUS RHAMNOSUS GG 1 CAPSULE. PO SCH ×2 (08:48→20:29)
[2020-03-24] MEDS: ASPIRIN ENTERIC COATED 81 MG TABLET.DR. PO SCH (08:48)
[2020-03-24] MEDS: PANTOPRAZOLE 40 MG TABLET.DR. PO SCH (08:49)
[2020-03-24] MEDS: AMIODARONE HCL 200 MG TABLET. PO SCH (08:49)
--- NOTE | 2020-03-24 09:52 | PDOC ---
DATE OF SERVICE DATE: 03/24/20 TIME: 09:49 SUBJECTIVE ROS Pt states he is feeling better and whats to go home an spend at least spend part of the day with his as its his Bday today OBJECTIVE Vital Signs Vital Signs Date Time Temp Pulse Resp B/P (MAP) Pulse Ox O2 Delivery O2 Flow Rate FiO2 03/24/20 08:49 59 123/69 03/24/20 08:00 Room Air 03/24/20 07:00 97.5 90 97.5 03/24/20 03:00 2.0 03/23/20 19:00 18 I & 0 Intake and Output 03/24/20 07:00 Intake Total 430 ml Output Total 1300 ml Balance -870 ml Intake Oral 430 ml Output Urine Total 1300 ml PHYSICAL EXAM Physical Exam GEN NAD HEENT:OM moist NECK: Supple LUNGS: Clear to auscultation, HEART: S1, S2 ABDOMEN: Soft, no guarding, EXTREMITIES: No clubbing, no edema. SKIN: Warm to touch without generalized rash. NEUROLOGIC: grossly normal PSYCHIATRIC: pleasant. DIAGNOSIS/ASSESSMENT Assessment & Plan CRAIG-ATN - Renal function improving ,Cr peaked at 3.9 -->1.7 E-Lytes stable Supportive care, Avoid Nephrotoxins , Follow up labs with PCP after dc HypoNatremia- resolved Sepsis COVID-19 - Recent +02/24/2020,now neg x2 Hypotension -- BP improved and stable AFib RVR on Amiodarone Right lung infiltrate Coffee ground emesis - hgb stable CAD: multiple stents to LAD 07/2009 Hx of secondary polycythemia with associated COPD/tobaccoism COMMENT/RELEVANT DATA Meds Current Medications Medications (Trade) Dose Ordered Sig/Abe Start Time Stop Time Status Last Admin Dose Admin Amiodarone HCl (Cordarone) 400 mg DAILY 03/21/20 07:00 03/24/20 08:49 400 MG Amiodarone HCl 150 mg/Dextrose 103 ml @ 618 mls/hr 1X ONCE 03/21/20 07:30 03/21/20 07:39 DC 03/21/20 07:19 618 MLS/HR Amiodarone HCl 450 mg/Dextrose 259 ml @ 0 mls/hr CONT PRN 03/21/20 07:30 03/22/20 08:54 DC 03/22/20 08:54 16.7 MLS/HR Aspirin (Ecotrin) 81 mg [id number] 03/20/20 08:00 03/24/20 08:48 81 MG Ceftriaxone Sodium (Rocephin) 1 gm 1X ONCE 03/18/20 17:30 03/18/20 17:46 DC Daptomycin 500 mg/ Sodium Chloride 50 ml @ 100 mls/hr ONCE ONCE 03/20/20 08:00 03/20/20 08:29 DC 03/20/20 08:21 100 MLS/HR Doxycycline Hyclate 100 mg/ Dextrose 100 ml @ 50 mls/hr Q12HR 03/19/20 09:00 03/23/20 09:52 DC 03/23/20 08:21 50 MLS/HR Fentanyl Citrate (Fentanyl 2ml Vial) 100 mcg 1X ONCE 03/23/20 14:15 03/23/20 14:16 DC 03/23/20 14:51 25 MCG Furosemide (Lasix) 40 mg [id number] 03/23/20 14:00 03/23/20 15:02 DC Heparin Sodium (Porcine) (Heparin Sodium) 2,300 unit PRN Q6HRS PRN 03/20/20 16:30 03/23/20 12:16 DC 03/22/20 06:28 2,300 UNIT Heparin Sodium/ Dextrose 250 ml @ 0 mls/hr CONT PRN 03/20/20 16:30 03/23/20 12:16 DC 03/23/20 11:34 15 MLS/HR Heparin Sodium/ Sodium Chloride (HEPARIN for ARTERIAL LINE FLUSH) 1,000 unit 1X ONCE 03/23/20 14:15 03/23/20 14:16 DC 03/23/20 14:52 1,000 UNIT Info (Anti-Coagulation Monitoring By Pharmacy) 1 each PRN DAILY PRN 03/21/20 12:00 03/22/20 09:54 1 EACH Lactobacillus Rhamnosus (Culturelle) 1 cap BID 03/20/20 21:00 03/24/20 08:48 1 CAP Lidocaine HCl (Lidocaine 1% 20ml Vial) 20 ml 1X ONCE 03/23/20 14:15 03/23/20 14:16 DC 03/23/20 14:49 10 ML Midazolam HCl (Versed) 2 mg 1X ONCE 03/23/20 14:15 03/23/20 14:16 DC 03/23/20 14:51 1 MG Norepinephrine Bitartrate 8 mg/ Dextrose 258 ml @ 17.609 mls/ hr CONT PRN 03/19/20 01:00 03/22/20 03:51 10.565 MLS/HR Ondansetron HCl (Zofran) 8 mg 1X ONCE 03/18/20 18:45 03/18/20 18:46 DC Pantoprazole Sodium (PROTONIX VIAL for IV PUSH) 40 mg DAILYAC 03/19/20 07:30 03/22/20 09:41 DC 03/22/20 08:21 40 MG Pantoprazole Sodium (Protonix) 40 mg DAILYAC 03/23/20 07:30 03/24/20 08:49 40 MG Pantoprazole Sodium 80 mg/ Sodium Chloride 100 ml @ 10 mls/hr Q10H 03/18/20 18:45 03/19/20 01:30 DC 03/18/20 19:20 10 MLS/HR Piperacillin Sod/ Tazobactam Sod 2.25 gm/Sodium Chloride 50 ml @ 100 mls/hr Q6HRS 03/19/20 07:00 03/23/20 09:52 DC 03/23/20 05:00 100 MLS/HR Piperacillin Sod/ Tazobactam Sod 4.5 gm/Sodium Chloride 100 ml @ 200 mls/hr 1X ONCE 03/18/20 17:45 03/18/20 18:14 DC 03/18/20 18:10 200 MLS/HR Sodium Chloride 500 ml @ 500 mls/hr 1X ONCE 03/19/20 01:00 03/19/20 01:59 DC 03/19/20 01:26 500 MLS/HR Vancomycin HCl 2.25 gm/Sodium Chloride 500 ml @ 250 mls/hr 1X ONCE 03/18/20 18:00 03/18/20 19:59 UNV Vancomycin HCl 2 gm/Sodium Chloride 500 ml @ 250 mls/hr 1X ONCE 03/18/20 18:45 03/18/20 20:44 DC 03/18/20 18:11 250 MLS/HR Vasopressin 20 unit/Dextrose 101 ml @ 12 mls/hr CONT PRN 03/19/20 11:15 03/24/20 09:02 DC 03/20/20 08:56 12 MLS/HR Lab Laboratory Tests Test 8/5/20 06:30 Sodium Level 144 mmol/L (136-145) Potassium Level 4.2 mmol/L (3.5-5.1) Chloride Level 109 mmol/L (98-107) Carbon Dioxide Level 27 mmol/L (21-32) Anion Gap 8 (6-14) Blood Urea Nitrogen 37 mg/dL (8-26) Creatinine 1.7 mg/dL (0.7-1.3) Estimated GFR (Cockcroft-Gault) 47.5 Glucose Level 81 mg/dL (70-99) Calcium Level 8.8 mg/dL (8.5-10.1) Results All relevant outside records, renal labs, imaging studies, telemetry/EKG's were reviewed. Justicifation of Admission Dx: Justifications for Admission: Justification of Admission Dx: Yes Aspiration Pneumonia: Hemodynamic Instability DAKOTA PEREZ MD Mar 24, 2020 09:52
[2020-03-24 10:55] VITALS: BP 119/70
--- NOTE | 2020-03-24 11:07 | PDOC ---
[employer] PROGRESS NOTE Date of Service DOS: DATE: 03/24/20 TIME: 11:04 Chief Complaint Chief Complaint Sepsis concerning for CAP versus cardiogenic shock A. fib RVR Acute on chronic systolic CHF EF 30 to 35% Troponin elevation concerning for NSTEMI Hematemesis concerning for GI bleed Recent COVID positive infectionrepeat test was negative, COVID ruled out CRAIG due to vasomotor nephropathy Hypertension Dyslipidemia Plan: Strict I's and O's and sodium restriction Nephrology consult Infectious disease consult, off broad-spectrum antibiotics Follow-up with blood cultures Continue IV fluids SCD for DVT prophylaxis Protonix GI prophylaxis Cardiac diet Full code Discussed with RN and SW History of Present Illness History of Present Illness Mr Shaw is a 74 yo male with past medical history of hypertension, dyslipidemia, CAD with stents and history of tobacco dependence. He presents to the ED with complaints of generalized weakness for the past 2 days. Patient originally tested positive for COVID on February 22 and he remained quarantined for 2 weeks after with his who also was tested positive. Patient was retested this past week and it was negative. Patient's also stated that the patient has fallen twice in the past few days and has been appearing more lethargic, confused, and with loss of appetite. Patient also endorses vomiting some blood denies chest pain, abdominal pain, diarrhea, loss of smell, dysuria or bloody stools. 03/20: No acute events overnight. Patient seen and examined bedside. Continues to be on levo fed and vasopressin. Echo was completed yesterday showed ejection fraction of 30 to 35%. Pending evaluation by cardiology. Patient's chart, labs, images were reviewed and discussed with RN 2: No acute events overnight. Telemetry monitoring event showed atrial fibrillation with RVR. Patient required amiodarone bolus and drip was started. Patient's chart, labs, images were reviewed and discussed with RN 03/22: Seen bedside in ICU. Arterial line and blood pressure cuff with systolic blood pressure in the low 90s has just had his Levophed down titrated. Patient with sinus rhythm on monitor. Afebrile. WBC 18.5, BMP unchanged creatinine 2.2. 03/23: Transferred from ICU to [facility] overnight. WBC down to 16.5, CR 2. He is feeling much better. Off antibiotics currently. Still with little bit of abdominal fullness still on heparin gtt. had 3 formed stools in the last 24 hours. Doing better, CR 1.7. Afebrile. Off antibiotics. Deconditioning needs SNF, SNF is requested repeat COVID-19 testing prior to acceptance. Vitals/I&O Vitals/I&O: Vital Signs Date Time Temp Pulse Resp B/P (MAP) Pulse Ox O2 Delivery O2 Flow Rate FiO2 03/24/20 10:55 97.4 77 119/70 (86) 94 Room Air 97.4 03/24/20 03:00 2.0 03/23/20 19:00 18 I & O 03/23/20 03/23/20 03/24/20 15:00 23:00 07:00 Intake Total 180 ml 250 ml Output Total 300 ml 600 ml 400 ml Balance -300 ml -420 ml -150 ml Physical Exam Physical Exam: CONSTITUTIONAL: He is a very pleasant gentleman. He is cooperative. He is lying in bed. He is comfortable. He is answering questions. HEENT: Pupils equal and reactive, but appears as early cataracts. He has normal conjunctivae. Oral cavity, pharynx was clear. NECK: Supple, with no JVD. LUNGS: Clear to auscultation, no wheeze.mild increased Resp rate HEART: S1, S2 mild tach. ABDOMEN: Soft, no guarding, no rebound. Positive but decreased bowel sounds. Mild distension EXTREMITIES: No clubbing, no edema. His extremities were cool to touch with decreased pulses bilaterally SCD. SKIN: Warm to touch without generalized rash. NEUROLOGIC: Nonfocal, answering questions. Moves all extremities. PSYCHIATRIC: Affect is very pleasant. LUE art line General: Alert, Oriented X3, Cooperative, No acute distress Heart: Regular rate (SR no significant ectopies) Abdomen: Soft Extremities: No cyanosis, No edema Skin: No breakdown, No significant lesion Labs Labs: Laboratory Tests Test 03/24/20 06:30 Sodium Level 144 mmol/L (136-145) Potassium Level 4.2 mmol/L (3.5-5.1) Chloride Level 109 mmol/L (98-107) Carbon Dioxide Level 27 mmol/L (21-32) Anion Gap 8 (6-14) Blood Urea Nitrogen 37 mg/dL (8-26) Creatinine 1.7 mg/dL (0.7-1.3) Estimated GFR (Cockcroft-Gault) 47.5 Glucose Level 81 mg/dL (70-99) Calcium Level 8.8 mg/dL (8.5-10.1) Assessment and Plan Assessmemt and Plan Problems Medical Problems: (1) Kidney failure Status: Acute (2) Septic shock Status: Acute Comment Review of Relevant I have reviewed the following items manny (where applicable) has been applied. Medications: Current Medications Medications (Trade) Dose Ordered Sig/Abe Route PRN Reason Start Time Stop Time Status Last Admin Dose Admin Heparin Sodium/ Sodium Chloride (HEPARIN for ARTERIAL LINE FLUSH) 1,000 unit 1X ONCE IART 03/23/20 14:15 03/23/20 14:16 DC 03/23/20 14:52 Midazolam HCl (Versed) 2 mg 1X ONCE IV 03/23/20 14:15 03/23/20 14:16 DC 03/23/20 14:51 Fentanyl Citrate (Fentanyl 2ml Vial) 100 mcg 1X ONCE IV 03/23/20 14:15 03/23/20 14:16 DC 03/23/20 14:51 Lidocaine HCl (Lidocaine 1% 20ml Vial) 20 ml 1X ONCE INJ 03/23/20 14:15 03/23/20 14:16 DC 03/23/20 14:49 Justicifation of Admission Dx: Justifications for Admission: Justification of Admission Dx: Yes Aspiration Pneumonia: Hemodynamic Instability CURTIS GORDON MD Mar 24, 2020 11:06
--- NOTE | 2020-03-24 11:18 | NUR ---
SS following up with discharge planning. SS reviewed pt chart and discussed with pt RN. Pt currently on room air. Pt accepted at [facility], ; fax [phone], pending second negative for COVID19. Facility requesting two negatives. Pt re-swabbed for COVID19 and results pending. SS will continue to follow for discharge planning.
--- NOTE | 2020-03-24 11:43 | PDOC ---
Date of Service: DATE: 03/24/20 TIME: 11:41 Subjective: Subjective: Eating better, says drinking Ensure. Stooling, no abd pain. Wants to talk to social work. Objective: Objective: D/w nurse - loose stool. Vital Signs: Vital Signs Date Time Temp Pulse Resp B/P (MAP) Pulse Ox O2 Delivery O2 Flow Rate FiO2 03/24/20 10:55 97.4 77 119/70 (86) 94 Room Air 97.4 03/24/20 03:00 2.0 03/23/20 19:00 18 Labs: Laboratory Tests Test 03/24/20 06:30 Sodium Level 144 mmol/L Potassium Level 4.2 mmol/L Chloride Level 109 mmol/L Carbon Dioxide Level 27 mmol/L Anion Gap 8 Blood Urea Nitrogen 37 mg/dL Creatinine 1.7 mg/dL Estimated GFR (Cockcroft-Gault) 47.5 Glucose Level 81 mg/dL Calcium Level 8.8 mg/dL BLOOD CULTURE Final NO GROWTH AFTER 5 DAYS PE: GEN: NAD LUNGS: CTAB HEART: RRR ABD: NABS, S/ND/NT NEURO/PSYCH: A & O 3 A/P: Coffee-ground emesis - no recurrence, normal Hgb CHF, A Fib, NSTEMI, CRAIG -- Awaiting another COVID swab before DC to [facility]. Stable GI-craft. Justicifation of Admission Dx: Justifications for Admission: Justification of Admission Dx: Yes Aspiration Pneumonia: Hemodynamic Instability TU NEWTON Mar 24, 2020 11:43
--- NOTE | 2020-03-24 12:28 | PDOC ---
JENNIFER GARCIA RESIDENT PROGRAMS ASSISTANT 03/24/20 1228: CARDIO Progress Notes Date and Time Date of Service 03/24/2020 Time of Evaluation 1030 Subjective Subjective: No Chest Pain, No shortness of breath, No Palpitations Vitals Vitals Vital Signs Date Time Temp Pulse Resp B/P (MAP) Pulse Ox O2 Delivery O2 Flow Rate FiO2 03/24/20 10:55 97.4 77 119/70 (86) 94 Room Air 97.4 03/24/20 03:00 2.0 03/23/20 19:00 18 Weight Weight [ ] Input and Output Intake and Output Intake and Output 03/24/20 07:00 Intake Total 430 ml Output Total 1300 ml Balance -870 ml Intake Oral 430 ml Output Urine Total 1300 ml Laboratory Labs Laboratory Tests Test 03/24/20 06:30 Sodium Level 144 mmol/L (136-145) Potassium Level 4.2 mmol/L (3.5-5.1) Chloride Level 109 mmol/L (98-107) Carbon Dioxide Level 27 mmol/L (21-32) Anion Gap 8 (6-14) Blood Urea Nitrogen 37 mg/dL (8-26) Creatinine 1.7 mg/dL (0.7-1.3) Estimated GFR (Cockcroft-Gault) 47.5 Glucose Level 81 mg/dL (70-99) Calcium Level 8.8 mg/dL (8.5-10.1) Microbiology Micro Microbiology 03/19/20 Urine Culture - Final, Complete 03/18/20 Blood Culture - Final, Complete NO GROWTH AFTER 5 DAYS Review of Systems Constitutional: yes: other (PT IN ISOLATION) Ears/Nose/Throat: No: nasal congestion Physical Exam HEENT: Neck Supple W Full Motion Chest: Symmetric LUNGS: Other (bibasilar crackles ) Heart: S1S2, RRR (SR/SB) Abdomen: Soft N/T Extremities: Other (trace bilateral LE edema ) Neurology: alert, oriented, follow commands Assessment Assessment 1. Sepsis/shock with possible pneumonia. improved 2. Dyspnea with associated pneumonia, AFIB and HF 3. AFIB with RVR; maintaining SR. New? 4. Severe CRAIG; Cr better at 1.7 from 3.9 5. NSTEMI: possible type 2, demand ischemia. Trop at 1.2. CP free. 6. CAD: multiple stents to LAD 07/2009 7. Recent Covid-19: +02/24/2020,now neg x2 8. Hypertension; BP low end. 9. Hyperlipidmia 10. Abdominal pain/hematemesis; no further recurrence. Hgb remains stable. Recommendations 1. Continue with Amiodarone therapy for rhythm maintenance 2. Start on toprol low dose and monitor rhythm 3. Post RHC revealed normal biventricular filling pressures. Lasix PRN 4. Continue to optimize renal function and consider at least outpt ischemic workup via [facility] 5. Could start low dose ACEi prior to DC and check labs in 1-2 weeks. 6. Resume ASA. Consider MCOT and note AFIB burden and possible utilization of NOAC. Will hold for now given his recent hematemesis. Justicifation of Admission Dx: Justifications for Admission: Justification of Admission Dx: Yes Aspiration Pneumonia: Hemodynamic Instability LUISA DEAN MD 03/24/20 1811: CARDIO Progress Notes Plan Plan The patient was seen and interviewed as well as examined at the bedside. The chart was reviewed. The case was discussed. Agree with the plan of care. Suspect dyspnea mostly from emphysema and chronic heart failure. Poor candidate for entresto at this time. consider outpt. F/u with [facility]. Thanks JENNIFER GARCIA RESIDENT PROGRAMS ASSISTANT Mar 24, 2020 12:28 LUISA DEAN MD Mar 24, 2020 18:11
[2020-03-24] MEDS: METOPROLOL SUCC 24HR ER 25 MG TAB.ER.24H. PO SCH (14:01)
[2020-03-24 15:00] VITALS: BP 107/61
[2020-03-24 19:59] VITALS: BP 115/73
[2020-03-24 23:00] VITALS: BP 115/67
[2020-03-25 03:50] VITALS: BP 126/75
[2020-03-25 06:32] LABS: ALBUMIN 1.5 g/dL (3.4-5.0); ALBUMIN/GLOBULIN RATIO 0.4 (1.0-1.7); CALCIUM 8.5 mg/dL (8.5-10.1); CREATININE 1.4 mg/dL (0.7-1.3); GFR 59.5; POTASSIUM 4.4 mmol/L (3.5-5.1); TOTAL BILIRUBIN 0.3 mg/dL (0.2-1.0); TOTAL PROTEIN 5.6 g/dL (6.4-8.2)
[2020-03-25 06:33] LABS: BASO % 0 % (0-3); EOS # 0.1 x10^3/uL (0.0-0.7); EOS % 1 % (0-3); HEMATOCRIT 39.9 % (39.0-53.0); HEMOGLOBIN 13.6 g/dL (13.0-17.5); LYMPH # 1.7 x10^3/uL (1.0-4.8); LYMPH % 16 % (24-48); MEAN CORPUSCULAR HEMOGLOBIN 34 pg (25-35); MEAN CORPUSCULAR HGB CONC 34 g/dL (31-37); MEAN CORPUSCULAR VOLUME 101 fL (79-100); MONO # 0.4 x10^3/uL (0.0-1.1); MONO % 4 % (0-9); NEUT # 8.1 x10^3/uL (1.8-7.7); NEUT % 79 % (31-73); PLATELET COUNT 369 x10^3/uL (140-400); RED BLOOD COUNT 3.95 x10^6/uL (4.30-5.70); WHITE BLOOD COUNT 10.3 x10^3/uL (4.0-11.0)
[2020-03-25 07:00] VITALS: BP 122/70
--- NOTE | 2020-03-25 08:33 | PDOC ---
Infectious Disease Note Subjective Subjective feeling better, no complaints ROS ROS no n/v/d/ Vital Sign Vital Signs Vital Signs Date Time Temp Pulse Resp B/P (MAP) Pulse Ox O2 Delivery O2 Flow Rate FiO2 03/25/20 07:00 97.4 56 16 122/70 (87) 96 Nasal Cannula 2.0 97.4 Physical Exam PHYSICAL EXAM CONSTITUTIONAL: He is a very pleasant gentleman. He is cooperative. He is lying in bed. He is comfortable. He is answering questions. HEENT: Pupils equal and reactive, but appears as early cataracts. He has normal conjunctivae. Oral cavity, pharynx was clear. NECK: Supple, with no JVD. LUNGS: Clear to auscultation, no wheeze.mild increased Resp rate HEART: S1, S2 mild tach. ABDOMEN: Soft, no guarding, no rebound. Positive but decreased bowel sounds. Mild distension EXTREMITIES: No clubbing, no edema. His extremities were cool to touch with decreased pulses bilaterally SCD. SKIN: Warm to touch without generalized rash. NEUROLOGIC: Nonfocal, answering questions. Moves all extremities. PSYCHIATRIC: Affect is very pleasant. LUE art line Labs Lab Laboratory Tests Test 03/25/20 06:00 White Blood Count 10.3 x10^3/uL (4.0-11.0) Red Blood Count 3.95 x10^6/uL (4.30-5.70) Hemoglobin 13.6 g/dL (13.0-17.5) Hematocrit 39.9 % (39.0-53.0) Mean Corpuscular Volume 101 fL (79-100) Mean Corpuscular Hemoglobin 34 pg (25-35) Mean Corpuscular Hemoglobin Concent 34 g/dL (31-37) Red Cell Distribution Width 16.0 % (11.5-14.5) Platelet Count 369 x10^3/uL (140-400) Neutrophils (%) (Auto) 79 % (31-73) Lymphocytes (%) (Auto) 16 % (24-48) Monocytes (%) (Auto) 4 % (0-9) Eosinophils (%) (Auto) 1 % (0-3) Basophils (%) (Auto) 0 % (0-3) Neutrophils # (Auto) 8.1 x10^3/uL (1.8-7.7) Lymphocytes # (Auto) 1.7 x10^3/uL (1.0-4.8) Monocytes # (Auto) 0.4 x10^3/uL (0.0-1.1) Eosinophils # (Auto) 0.1 x10^3/uL (0.0-0.7) Basophils # (Auto) 0.0 x10^3/uL (0.0-0.2) Sodium Level 146 mmol/L (136-145) Potassium Level 4.4 mmol/L (3.5-5.1) Chloride Level 112 mmol/L (98-107) Carbon Dioxide Level 32 mmol/L (21-32) Anion Gap 2 (6-14) Blood Urea Nitrogen 30 mg/dL (8-26) Creatinine 1.4 mg/dL (0.7-1.3) Estimated GFR (Cockcroft-Gault) 59.5 BUN/Creatinine Ratio 21 (6-20) Glucose Level 103 mg/dL (70-99) Calcium Level 8.5 mg/dL (8.5-10.1) Magnesium Level 1.8 mg/dL (1.8-2.4) Total Bilirubin 0.3 mg/dL (0.2-1.0) Aspartate Amino Transf (AST/SGOT) 62 U/L (15-37) Alanine Aminotransferase (ALT/SGPT) 77 U/L (16-63) Alkaline Phosphatase 72 U/L (46-116) DJ-Mka-P-Type Natriuretic Peptide 66974 pg/mL (0-449) Total Protein 5.6 g/dL (6.4-8.2) Albumin 1.5 g/dL (3.4-5.0) Albumin/Globulin Ratio 0.4 (1.0-1.7) Micro Microbiology 03/19/20 Urine Culture - Final, Complete 03/18/20 Blood Culture - Preliminary, Resulted NO GROWTH AFTER 3 DAYS Objective Assessment Afib RVR Mild abd distension and discomfort - betterGI following Hypotension - on pressors off Vasopressin but on Levo still Leukocytosis - up but ? with new afib RVR ? concentration with all parameters up. Elevated Proca but also CRAIG Elevated Troponin - NSTEMI per card Right lung infiltrate CRAIG - better Coffee ground emesis - hgb better but has some abd distension COVID by report 02/22 with completed quarantine 03/11 reported neg since Neuropathy Plan Plan of Care off antibiotics ok to d/c to SNF D/w nursing MOISES GRESHAM MD Mar 25, 2020 08:33
[2020-03-25] MEDS: LACTOBACILLUS RHAMNOSUS GG 1 CAPSULE. PO SCH ×2 (08:57→20:34)
[2020-03-25] MEDS: PANTOPRAZOLE 40 MG TABLET.DR. PO SCH (08:57)
[2020-03-25] MEDS: ASPIRIN ENTERIC COATED 81 MG TABLET.DR. PO SCH (08:57)
[2020-03-25] MEDS: METOPROLOL SUCC 24HR ER 25 MG TAB.ER.24H. PO SCH (08:58)
[2020-03-25] MEDS: AMIODARONE HCL 200 MG TABLET. PO SCH (08:58)
--- NOTE | 2020-03-25 10:27 | PDOC ---
Date of Service: DATE: 03/25/20 TIME: 10:23 Subjective: Subjective: No GI complaints. Wants to know what the plan is. Objective: Objective: D/w nurse - possible DC pending COVID testing. Vital Signs: Vital Signs Date Time Temp Pulse Resp B/P (MAP) Pulse Ox O2 Delivery O2 Flow Rate FiO2 03/25/20 08:58 56 122/70 03/25/20 07:00 97.4 16 96 Nasal Cannula 2.0 97.4 Labs: Laboratory Tests Test 03/25/20 06:00 White Blood Count 10.3 x10^3/uL Red Blood Count 3.95 x10^6/uL Hemoglobin 13.6 g/dL Hematocrit 39.9 % Mean Corpuscular Volume 101 fL Mean Corpuscular Hemoglobin 34 pg Mean Corpuscular Hemoglobin Concent 34 g/dL Red Cell Distribution Width 16.0 % Platelet Count 369 x10^3/uL Neutrophils (%) (Auto) 79 % Lymphocytes (%) (Auto) 16 % Monocytes (%) (Auto) 4 % Eosinophils (%) (Auto) 1 % Basophils (%) (Auto) 0 % Neutrophils # (Auto) 8.1 x10^3/uL Lymphocytes # (Auto) 1.7 x10^3/uL Monocytes # (Auto) 0.4 x10^3/uL Eosinophils # (Auto) 0.1 x10^3/uL Basophils # (Auto) 0.0 x10^3/uL Platelet Estimate Pending Sodium Level 146 mmol/L Potassium Level 4.4 mmol/L Chloride Level 112 mmol/L Carbon Dioxide Level 32 mmol/L Anion Gap 2 Blood Urea Nitrogen 30 mg/dL Creatinine 1.4 mg/dL Estimated GFR (Cockcroft-Gault) 59.5 BUN/Creatinine Ratio 21 Glucose Level 103 mg/dL Calcium Level 8.5 mg/dL Magnesium Level 1.8 mg/dL Total Bilirubin 0.3 mg/dL Aspartate Amino Transf (AST/SGOT) 62 U/L Alanine Aminotransferase (ALT/SGPT) 77 U/L Alkaline Phosphatase 72 U/L TH-Dyk-C-Type Natriuretic Peptide 98089 pg/mL Total Protein 5.6 g/dL Albumin 1.5 g/dL Albumin/Globulin Ratio 0.4 PE: GEN: NAD - up to chair LUNGS: diminished HEART: irregular ABD: S/ND/NT NEURO/PSYCH: A & O 3 A/P: Coffee-ground emesis - resolved, on PPI, normal Hgb Elevated AST and ALT - unremarkable liver on CT, s/p katherine CHF, A Fib, NSTEMI, CAD - on amiodarone and ASA -- Plans as above. Monitor LFTs. Justicifation of Admission Dx: Justifications for Admission: Justification of Admission Dx: Yes Aspiration Pneumonia: Hemodynamic Instability TU NEWTON Mar 25, 2020 10:27
[2020-03-25] MEDS ORDERED: MAGNESIUM SULFATE 2GM 50 ML IV ONE (10:30)
--- NOTE | 2020-03-25 10:34 | PDOC ---
DATE OF SERVICE DATE: 03/25/20 TIME: 10:33 SUBJECTIVE ROS No complaints, states will be dced to PP OBJECTIVE Vital Signs Vital Signs Date Time Temp Pulse Resp B/P (MAP) Pulse Ox O2 Delivery O2 Flow Rate FiO2 03/25/20 08:58 56 122/70 03/25/20 08:00 Nasal Cannula 2.0 03/25/20 07:00 97.4 16 96 97.4 I & 0 Intake and Output 03/25/20 07:00 Intake Total 810 ml Output Total 1150 ml Balance -340 ml Intake Oral 810 ml Output Urine Total 1150 ml PHYSICAL EXAM Physical Exam GEN NAD HEENT:OM moist NECK: Supple LUNGS: Clear to auscultation, HEART: S1, S2 ABDOMEN: Soft, no guarding, EXTREMITIES: No clubbing, no edema. SKIN: Warm to touch without generalized rash. NEUROLOGIC: grossly normal PSYCHIATRIC: pleasant. DIAGNOSIS/ASSESSMENT Assessment & Plan CRAIG-ATN - Renal function improving ,Cr peaked at 3.9 -->1.4 E-Lytes stable Supportive care, Avoid Nephrotoxins HypoNatremia- resolved Sepsis COVID-19 - Recent +02/24/2020,now neg x2 Hypotension -- BP improved and stable AFib RVR on Amiodarone Right lung infiltrate Coffee ground emesis - hgb stable CAD: multiple stents to LAD 07/2009 Hx of secondary polycythemia with associated COPD/tobaccoism COMMENT/RELEVANT DATA Meds Current Medications Medications (Trade) Dose Ordered Sig/Abe Start Time Stop Time Status Last Admin Dose Admin Amiodarone HCl (Cordarone) 400 mg DAILY 03/21/20 07:00 03/25/20 08:58 400 MG Amiodarone HCl 150 mg/Dextrose 103 ml @ 618 mls/hr 1X ONCE 03/21/20 07:30 03/21/20 07:39 DC 03/21/20 07:19 618 MLS/HR Amiodarone HCl 450 mg/Dextrose 259 ml @ 0 mls/hr CONT PRN 03/21/20 07:30 03/22/20 08:54 DC 03/22/20 08:54 16.7 MLS/HR Aspirin (Ecotrin) 81 mg DAILYWBKFT 03/20/20 08:00 03/25/20 08:57 81 MG Ceftriaxone Sodium (Rocephin) 1 gm 1X ONCE 03/18/20 17:30 03/18/20 17:46 DC Daptomycin 500 mg/ Sodium Chloride 50 ml @ 100 mls/hr ONCE ONCE 03/20/20 08:00 03/20/20 08:29 DC 03/20/20 08:21 100 MLS/HR Doxycycline Hyclate 100 mg/ Dextrose 100 ml @ 50 mls/hr Q12HR 03/19/20 09:00 03/23/20 09:52 DC 03/23/20 08:21 50 MLS/HR Fentanyl Citrate (Fentanyl 2ml Vial) 100 mcg 1X ONCE 03/23/20 14:15 03/23/20 14:16 DC 03/23/20 14:51 25 MCG Furosemide (Lasix) 40 mg [id number] 03/23/20 14:00 03/23/20 15:02 DC Heparin Sodium (Porcine) (Heparin Sodium) 2,300 unit PRN Q6HRS PRN 03/20/20 16:30 03/23/20 12:16 DC 03/22/20 06:28 2,300 UNIT Heparin Sodium/ Dextrose 250 ml @ 0 mls/hr CONT PRN 03/20/20 16:30 03/23/20 12:16 DC 03/23/20 11:34 15 MLS/HR Heparin Sodium/ Sodium Chloride (HEPARIN for ARTERIAL LINE FLUSH) 1,000 unit 1X ONCE 03/23/20 14:15 03/23/20 14:16 DC 03/23/20 14:52 1,000 UNIT Info (Anti-Coagulation Monitoring By Pharmacy) 1 each PRN DAILY PRN 03/21/20 12:00 03/24/20 11:06 DC 03/22/20 09:54 1 EACH Lactobacillus Rhamnosus (Culturelle) 1 cap BID 03/20/20 21:00 03/25/20 08:57 1 CAP Lidocaine HCl (Lidocaine 1% 20ml Vial) 20 ml 1X ONCE 03/23/20 14:15 03/23/20 14:16 DC 03/23/20 14:49 10 ML Magnesium Sulfate 50 ml @ 25 mls/hr 1X ONCE 03/25/20 10:30 03/25/20 12:29 Metoprolol Succinate (Toprol Xl) 12.5 mg DAILY 03/24/20 13:00 03/25/20 08:58 12.5 MG Midazolam HCl (Versed) 2 mg 1X ONCE 03/23/20 14:15 03/23/20 14:16 DC 03/23/20 14:51 1 MG Norepinephrine Bitartrate 8 mg/ Dextrose 258 ml @ 17.609 mls/ hr CONT PRN 03/19/20 01:00 03/24/20 11:06 DC 03/22/20 03:51 10.565 MLS/HR Ondansetron HCl (Zofran) 8 mg 1X ONCE 03/18/20 18:45 03/18/20 18:46 DC Pantoprazole Sodium (PROTONIX VIAL for IV PUSH) 40 mg DAILYAC 03/19/20 07:30 03/22/20 09:41 DC 03/22/20 08:21 40 MG Pantoprazole Sodium (Protonix) 40 mg DAILYAC 03/23/20 07:30 03/25/20 08:57 40 MG Pantoprazole Sodium 80 mg/ Sodium Chloride 100 ml @ 10 mls/hr Q10H 03/18/20 18:45 03/19/20 01:30 DC 03/18/20 19:20 10 MLS/HR Piperacillin Sod/ Tazobactam Sod 2.25 gm/Sodium Chloride 50 ml @ 100 mls/hr Q6HRS 03/19/20 07:00 03/23/20 09:52 DC 03/23/20 05:00 100 MLS/HR Piperacillin Sod/ Tazobactam Sod 4.5 gm/Sodium Chloride 100 ml @ 200 mls/hr 1X ONCE 03/18/20 17:45 03/18/20 18:14 DC 03/18/20 18:10 200 MLS/HR Sodium Chloride 500 ml @ 500 mls/hr 1X ONCE 03/19/20 01:00 03/19/20 01:59 DC 03/19/20 01:26 500 MLS/HR Vancomycin HCl 2.25 gm/Sodium Chloride 500 ml @ 250 mls/hr 1X ONCE 03/18/20 18:00 03/18/20 19:59 UNV Vancomycin HCl 2 gm/Sodium Chloride 500 ml @ 250 mls/hr 1X ONCE 03/18/20 18:45 03/18/20 20:44 DC 03/18/20 18:11 250 MLS/HR Vasopressin 20 unit/Dextrose 101 ml @ 12 mls/hr CONT PRN 03/19/20 11:15 8/5/20 09:02 DC 03/20/20 08:56 12 MLS/HR Lab Laboratory Tests Test 03/25/20 06:00 White Blood Count 10.3 x10^3/uL (4.0-11.0) Red Blood Count 3.95 x10^6/uL (4.30-5.70) Hemoglobin 13.6 g/dL (13.0-17.5) Hematocrit 39.9 % (39.0-53.0) Mean Corpuscular Volume 101 fL (79-100) Mean Corpuscular Hemoglobin 34 pg (25-35) Mean Corpuscular Hemoglobin Concent 34 g/dL (31-37) Red Cell Distribution Width 16.0 % (11.5-14.5) Platelet Count 369 x10^3/uL (140-400) Neutrophils (%) (Auto) 79 % (31-73) Lymphocytes (%) (Auto) 16 % (24-48) Monocytes (%) (Auto) 4 % (0-9) Eosinophils (%) (Auto) 1 % (0-3) Basophils (%) (Auto) 0 % (0-3) Neutrophils # (Auto) 8.1 x10^3/uL (1.8-7.7) Lymphocytes # (Auto) 1.7 x10^3/uL (1.0-4.8) Monocytes # (Auto) 0.4 x10^3/uL (0.0-1.1) Eosinophils # (Auto) 0.1 x10^3/uL (0.0-0.7) Basophils # (Auto) 0.0 x10^3/uL (0.0-0.2) Sodium Level 146 mmol/L (136-145) Potassium Level 4.4 mmol/L (3.5-5.1) Chloride Level 112 mmol/L (98-107) Carbon Dioxide Level 32 mmol/L (21-32) Anion Gap 2 (6-14) Blood Urea Nitrogen 30 mg/dL (8-26) Creatinine 1.4 mg/dL (0.7-1.3) Estimated GFR (Cockcroft-Gault) 59.5 BUN/Creatinine Ratio 21 (6-20) Glucose Level 103 mg/dL (70-99) Calcium Level 8.5 mg/dL (8.5-10.1) Magnesium Level 1.8 mg/dL (1.8-2.4) Total Bilirubin 0.3 mg/dL (0.2-1.0) Aspartate Amino Transf (AST/SGOT) 62 U/L (15-37) Alanine Aminotransferase (ALT/SGPT) 77 U/L (16-63) Alkaline Phosphatase 72 U/L (46-116) YO-Hea-T-Type Natriuretic Peptide 27550 pg/mL (0-449) Total Protein 5.6 g/dL (6.4-8.2) Albumin 1.5 g/dL (3.4-5.0) Albumin/Globulin Ratio 0.4 (1.0-1.7) Results All relevant outside records, renal labs, imaging studies, telemetry/EKG's were reviewed. Justicifation of Admission Dx: Justifications for Admission: Justification of Admission Dx: Yes Aspiration Pneumonia: Hemodynamic Instability DAKOTA PEREZ MD Mar 25, 2020 10:34
[2020-03-25 10:54] VITALS: BP 130/66
[2020-03-25 11:12] LABS: % BANDS 3 % (0-9); % EOS 3 % (0-5); % LYMPHS 19 % (24-48); % METAS 2 % (0-0); % MONOS 5 % (0-10); % SEGS 68 % (35-66); ANISOCYTOSIS SLIGHT; PLT ESTIMATE ADEQUATE (ADEQUATE)
--- NOTE | 2020-03-25 11:21 | NUR ---
SS following up with discharge planning. SS reviewed pt chart and discussed with pt RN. Pt currently requiring oxygen. Pt accepted at [facility], ; fax [phone], pending second COVID19 result. Bed available today if results available. SS will continue to follow for discharge planning.
--- NOTE | 2020-03-25 12:59 | PDOC ---
JENNIFER GARCIA CORKING MACHINE OPERATOR 03/25/20 1259: CARDIO Progress Notes Date and Time Date of Service 03/25/2020 Time of Evaluation 0950 Subjective Subjective: No Chest Pain, No shortness of breath, No Palpitations Vitals Vitals Vital Signs Date Time Temp Pulse Resp B/P (MAP) Pulse Ox O2 Delivery O2 Flow Rate FiO2 03/25/20 10:54 97.5 53 16 130/66 (87) 94 Nasal Cannula 2.0 97.5 Weight Weight [ ] Input and Output Intake and Output Intake and Output 03/25/20 07:00 Intake Total 810 ml Output Total 1150 ml Balance -340 ml Intake Oral 810 ml Output Urine Total 1150 ml Laboratory Labs Laboratory Tests Test 03/25/20 06:00 White Blood Count 10.3 x10^3/uL (4.0-11.0) Red Blood Count 3.95 x10^6/uL (4.30-5.70) Hemoglobin 13.6 g/dL (13.0-17.5) Hematocrit 39.9 % (39.0-53.0) Mean Corpuscular Volume 101 fL (79-100) Mean Corpuscular Hemoglobin 34 pg (25-35) Mean Corpuscular Hemoglobin Concent 34 g/dL (31-37) Red Cell Distribution Width 16.0 % (11.5-14.5) Platelet Count 369 x10^3/uL (140-400) Neutrophils (%) (Auto) 79 % (31-73) Lymphocytes (%) (Auto) 16 % (24-48) Monocytes (%) (Auto) 4 % (0-9) Eosinophils (%) (Auto) 1 % (0-3) Basophils (%) (Auto) 0 % (0-3) Neutrophils # (Auto) 8.1 x10^3/uL (1.8-7.7) Lymphocytes # (Auto) 1.7 x10^3/uL (1.0-4.8) Monocytes # (Auto) 0.4 x10^3/uL (0.0-1.1) Eosinophils # (Auto) 0.1 x10^3/uL (0.0-0.7) Basophils # (Auto) 0.0 x10^3/uL (0.0-0.2) Segmented Neutrophils % 68 % (35-66) Band Neutrophils % 3 % (0-9) Lymphocytes % 19 % (24-48) Monocytes % 5 % (0-10) Eosinophils % 3 % (0-5) Metamyelocytes % 2 % (0-0) Platelet Estimate Adequate (ADEQUATE) Large Platelets Present Anisocytosis Slight Sodium Level 146 mmol/L (136-145) Potassium Level 4.4 mmol/L (3.5-5.1) Chloride Level 112 mmol/L (98-107) Carbon Dioxide Level 32 mmol/L (21-32) Anion Gap 2 (6-14) Blood Urea Nitrogen 30 mg/dL (8-26) Creatinine 1.4 mg/dL (0.7-1.3) Estimated GFR (Cockcroft-Gault) 59.5 BUN/Creatinine Ratio 21 (6-20) Glucose Level 103 mg/dL (70-99) Calcium Level 8.5 mg/dL (8.5-10.1) Magnesium Level 1.8 mg/dL (1.8-2.4) Total Bilirubin 0.3 mg/dL (0.2-1.0) Aspartate Amino Transf (AST/SGOT) 62 U/L (15-37) Alanine Aminotransferase (ALT/SGPT) 77 U/L (16-63) Alkaline Phosphatase 72 U/L (46-116) HS-Npn-S-Type Natriuretic Peptide 91920 pg/mL (0-449) Total Protein 5.6 g/dL (6.4-8.2) Albumin 1.5 g/dL (3.4-5.0) Albumin/Globulin Ratio 0.4 (1.0-1.7) Microbiology Micro Microbiology 03/19/20 Urine Culture - Final, Complete 03/18/20 Blood Culture - Final, Complete NO GROWTH AFTER 5 DAYS Review of Systems Constitutional: yes: other (PT IN ISOLATION) Ears/Nose/Throat: No: nasal congestion Physical Exam HEENT: Neck Supple W Full Motion Chest: Symmetric LUNGS: Other (bibasilar crackles ) Heart: S1S2, RRR (SR/SB) Abdomen: Soft N/T Extremities: Other (trace bilateral LE edema ) Neurology: alert, oriented, follow commands Assessment Assessment 1. Sepsis/shock with possible pneumonia. improved 2. Dyspnea with associated pneumonia, AFIB and HF 3. AFIB with RVR; maintaining SR. New? 4. Severe CRAIG; Cr better at 1.4 from 3.9 5. NSTEMI: possible type 2, demand ischemia. Trop at 1.2. CP free. 6. CAD: multiple stents to LAD 07/2009 7. Recent Covid-19: +02/24/2020,now neg x2 8. Hypertension; controlled 9. Hyperlipidmia 10. Abdominal pain/hematemesis; no further recurrence. Hgb remains stable. 11. Arrhythmia: NSVT Recommendations 1. Continue with Amiodarone therapy for rhythm maintenance. Mg replacement today 2. Toprol low dose. Start on low dose lisinopril. Will defer to outpt uke driver for entresto transition 3. Post RHC revealed normal biventricular filling pressures. Lasix PRN 4. Consider at least outpt ischemic workup via [facility] 5. Resume ASA. Consider MCOT and note AFIB burden and possible utilization of NOAC. Will hold for now given his recent hematemesis. 6. Lifevest was discussed with pt and family and they have deferred for now. Follow with [facility]. SNU pending 7. RN to verify home statin and will continue Justicifation of Admission Dx: Justifications for Admission: Justification of Admission Dx: Yes Aspiration Pneumonia: Hemodynamic Instability LUISA DEAN MD 03/26/20 0738: CARDIO Progress Notes Plan Plan Late entry for 03/25/2020 Pt. seen and examined. Agree with above SEAMING MACHINE OPERATOR note. Supportive care. I spoke to pt's son who is a physician in [place] regarding patijoesph's CV issues. We discussed lifevest. Patient presently will decline. Outpt ischemic evaluation per primary uke driver. Ok to DC from CV standpoint on present medical therapy. Thanks JENNIFER GARCIA CORKING MACHINE OPERATOR Mar 25, 2020 12:59 LUISA DEAN MD Mar 26, 2020 07:38
[2020-03-25] MEDS ORDERED: FUROSEMIDE 40 MG TABLET. PO PRN (13:00)
[2020-03-25] MEDS ORDERED: SIMV20TA18 PO (13:38)
[2020-03-25] MEDS: LISINOPRIL 5 MG TABLET. PO SCH (14:00)
[2020-03-25] MEDS ORDERED: FURO40TA4 PO (14:20)
[2020-03-25] MEDS ORDERED: AMIO200T7 PO (14:20)
[2020-03-25] MEDS ORDERED: ASPI-886 PO (14:20)
[2020-03-25] MEDS ORDERED: PANT40TA77 PO (14:20)
[2020-03-25] MEDS ORDERED: LISI-338 PO (14:20)
[2020-03-25] MEDS ORDERED: METO-239 PO (14:20)
--- NOTE | 2020-03-25 14:24 | SNU/HH DC ---
DISCHARGE ORDERS DISCHARGE INFORMATION: DISCHARGE DATE: Mar 25, 2020 FINAL DIAGNOSIS Problems Medical Problems: (1) Kidney failure Status: Acute (2) Septic shock Status: Acute CONDITION ON DISCHARGE: Stable CODE STATUS: Code Status: Full CARE HOME: SNF STAY <30 DAYS: Yes POST DISCHARGE ORDERS: ACTIVITY ORDERS: Resume previous activity WEIGHT BEARING STATUS: Full weight bearing DIET AFTER DISCHARGE: Cardiac WOUND/INCISION CARE: Ice to area for comfort, Change dressing CHECKS AFTER DISCHARGE: CHECKS AFTER DISCHARGE: Check blood press - daily, Weigh Yourself Daily TREATMENT/EQUIPMENT ORDERS: Physical Therapy For: Evalulation/Treatment Occupational Therapy For: Evaluation/Treatment DISCHARGE MEDICATIONS: Home Meds Active Scripts Pantoprazole Sodium (PANTOPRAZOLE SODIUM ) 40 Mg Tablet., 40 MG PO DAILYAC for GERD for 30 Days, #30 TAB.SR Prov:CURTIS GORDON MD 03/25/20 Furosemide (FUROSEMIDE) 40 Mg Tablet, 40 MG PO DAILY PRN for CHF for 30 Days, #30 TAB Prov:CURTIS GORDON MD 03/25/20 Aspirin (ASPIRIN EC) 81 Mg Tablet., 81 MG PO DAILYWBKFT for CHF for 30 Days, #30 TAB.SR Prov:CURTIS GORDON MD 03/25/20 Lisinopril (LISINOPRIL) 5 Mg Tablet, 5 MG PO DAILY for CHF for 30 Days, #30 TAB Prov:CURTIS GORDON MD 03/25/20 Metoprolol Succinate (METOPROLOL SUCCINATE ( XL )) 25 Mg Tab.er.24h, 12.5 MG PO DAILY for CHF for 30 Days, #15 TAB.SR Prov:CURTIS GORDON MD 03/25/20 Amiodarone Hcl (PACERONE) 200 Mg Tablet, 200 MG PO DAILY for AFIB for 30 Days, #30 TAB Prov:CURTIS GORDON MD 03/25/20 Reported Medications Simvastatin (SIMVASTATIN) 20 Mg Tablet, 1 TAB PO QHS for HLD, #30 TAB 5 Refills 03/25/20 CURTIS GORDON MD Mar 25, 2020 14:24
--- NOTE | 2020-03-25 14:28 | PDOC ---
[employer] PROGRESS NOTE Date of Service DOS: DATE: 03/25/20 TIME: 14:25 Chief Complaint Chief Complaint Sepsis concerning for CAP versus cardiogenic shock A. fib RVR Acute on chronic systolic CHF EF 30 to 35% Troponin elevation concerning for NSTEMI Hematemesis concerning for GI bleed Recent COVID positive infectionrepeat test was negative, COVID ruled out CRAIG due to vasomotor nephropathy Hypertension Dyslipidemia Severe protein calorie malnutrition Plan: Strict I's and O's and sodium restriction Nephrology consult Infectious disease consult, off broad-spectrum antibiotics Follow-up with blood cultures Continue IV fluids SCD for DVT prophylaxis Protonix GI prophylaxis Cardiac diet Full code Discussed with RN and SW History of Present Illness History of Present Illness Mr Shaw is a 74 yo male with past medical history of hypertension, dyslipidemia, CAD with stents and history of tobacco dependence. He presents to the ED with complaints of generalized weakness for the past 2 days. Patient originally tested positive for COVID on February 22 and he remained quarantined for 2 weeks after with his who also was tested positive. Patient was retested this past week and it was negative. Patient's also stated that the patient has fallen twice in the past few days and has been appearing more lethargic, confused, and with loss of appetite. Patient also endorses vomiting some blood denies chest pain, abdominal pain, diarrhea, loss of smell, dysuria or bloody stools. 03/20: No acute events overnight. Patient seen and examined bedside. Continues to be on levo fed and vasopressin. Echo was completed yesterday showed ejection fraction of 30 to 35%. Pending evaluation by cardiology. Patient's chart, labs, images were reviewed and discussed with RN 2: No acute events overnight. Telemetry monitoring event showed atrial fibrillation with RVR. Patient required amiodarone bolus and drip was started. Patient's chart, labs, images were reviewed and discussed with RN 8/3: Seen bedside in ICU. Arterial line and blood pressure cuff with systolic blood pressure in the low 90s has just had his Levophed down titrated. Patient with sinus rhythm on monitor. Afebrile. WBC 18.5, BMP unchanged creatinine 2.2. 03/23: Transferred from ICU to CVC overnight. WBC down to 16.5, CR 2. He is feel ing much better. Off antibiotics currently. Still with little bit of abdominal fullness still on heparin gtt. had 3 formed stools in the last 24 hours. 03/24: Doing better, CR 1.7. Afebrile. Off antibiotics. Deconditioning needs SNF, SNF is requested repeat COVID-19 testing prior to acceptance. Feeling significantly better, weaning O2[place] [address]. Less short of breath. WBC 10. Still weak, planning SNF on d/c Vitals/I&O Vitals/I&O: Vital Signs Date Time Temp Pulse Resp B/P (MAP) Pulse Ox O2 Delivery O2 Flow Rate FiO2 03/25/20 14:00 53 130/66 03/25/20 10:54 97.5 16 94 Nasal Cannula 2.0 97.5 I & O 03/24/20 03/24/20 03/25/20 15:00 23:00 07:00 Intake Total 200 ml 370 ml 240 ml Output Total 200 ml 325 ml 625 ml Balance 0 ml 45 ml -385 ml Physical Exam Physical Exam: CONSTITUTIONAL: He is a very pleasant gentleman. He is cooperative. He is lying in bed. He is comfortable. He is answering questions. HEENT: Pupils equal and reactive, but appears as early cataracts. He has normal conjunctivae. Oral cavity, pharynx was clear. NECK: Supple, with no JVD. LUNGS: Clear to auscultation, no wheeze.mild increased Resp rate HEART: S1, S2 mild tach. ABDOMEN: Soft, no guarding, no rebound. Positive but decreased bowel sounds. Mild distension EXTREMITIES: No clubbing, no edema. His extremities were cool to touch with decreased pulses bilaterally SCD. SKIN: Warm to touch without generalized rash. NEUROLOGIC: Nonfocal, answering questions. Moves all extremities. PSYCHIATRIC: Affect is very pleasant. LUE art line General: Alert, Oriented X3, Cooperative, No acute distress Heart: Regular rate (SR no significant ectopies) Abdomen: Soft Extremities: No cyanosis, No edema Skin: No breakdown, No significant lesion Labs Labs: Laboratory Tests Test 03/25/20 06:00 White Blood Count 10.3 x10^3/uL (4.0-11.0) Red Blood Count 3.95 x10^6/uL (4.30-5.70) Hemoglobin 13.6 g/dL (13.0-17.5) Hematocrit 39.9 % (39.0-53.0) Mean Corpuscular Volume 101 fL (79-100) Mean Corpuscular Hemoglobin 34 pg (25-35) Mean Corpuscular Hemoglobin Concent 34 g/dL (31-37) Red Cell Distribution Width 16.0 % (11.5-14.5) Platelet Count 369 x10^3/uL (140-400) Neutrophils (%) (Auto) 79 % (31-73) Lymphocytes (%) (Auto) 16 % (24-48) Monocytes (%) (Auto) 4 % (0-9) Eosinophils (%) (Auto) 1 % (0-3) Basophils (%) (Auto) 0 % (0-3) Neutrophils # (Auto) 8.1 x10^3/uL (1.8-7.7) Lymphocytes # (Auto) 1.7 x10^3/uL (1.0-4.8) Monocytes # (Auto) 0.4 x10^3/uL (0.0-1.1) Eosinophils # (Auto) 0.1 x10^3/uL (0.0-0.7) Basophils # (Auto) 0.0 x10^3/uL (0.0-0.2) Segmented Neutrophils % 68 % (35-66) Band Neutrophils % 3 % (0-9) Lymphocytes % 19 % (24-48) Monocytes % 5 % (0-10) Eosinophils % 3 % (0-5) Metamyelocytes % 2 % (0-0) Platelet Estimate Adequate (ADEQUATE) Large Platelets Present Anisocytosis Slight Sodium Level 146 mmol/L (136-145) Potassium Level 4.4 mmol/L (3.5-5.1) Chloride Level 112 mmol/L (98-107) Carbon Dioxide Level 32 mmol/L (21-32) Anion Gap 2 (6-14) Blood Urea Nitrogen 30 mg/dL (8-26) Creatinine 1.4 mg/dL (0.7-1.3) Estimated GFR (Cockcroft-Gault) 59.5 BUN/Creatinine Ratio 21 (6-20) Glucose Level 103 mg/dL (70-99) Calcium Level 8.5 mg/dL (8.5-10.1) Magnesium Level 1.8 mg/dL (1.8-2.4) Total Bilirubin 0.3 mg/dL (0.2-1.0) Aspartate Amino Transf (AST/SGOT) 62 U/L (15-37) Alanine Aminotransferase (ALT/SGPT) 77 U/L (16-63) Alkaline Phosphatase 72 U/L (46-116) AJ-Wtw-I-Type Natriuretic Peptide 23133 pg/mL (0-449) Total Protein 5.6 g/dL (6.4-8.2) Albumin 1.5 g/dL (3.4-5.0) Albumin/Globulin Ratio 0.4 (1.0-1.7) Assessment and Plan Assessmemt and Plan Problems Medical Problems: (1) Kidney failure Status: Acute (2) Septic shock Status: Acute Comment Review of Relevant I have reviewed the following items manny (where applicable) has been applied. Medications: Current Medications Medications (Trade) Dose Ordered Sig/Abe Route PRN Reason Start Time Stop Time Status Last Admin Dose Admin Magnesium Sulfate 50 ml @ 25 mls/hr 1X ONCE IV 03/25/20 10:30 03/25/20 12:29 DC 03/25/20 11:14 Lisinopril (Prinivil) 5 mg DAILY PO 03/25/20 14:00 03/25/20 14:00 Justicifation of Admission Dx: Justifications for Admission: Justification of Admission Dx: Yes Aspiration Pneumonia: Hemodynamic Instability CURTIS GORDON MD Mar 25, 2020 14:28
[2020-03-25 14:54] VITALS: BP 106/61
--- NOTE | 2020-03-25 15:41 | NUR ---
SS following up with discharge planning. Discharge orders received for [facility], ; fax [phone]. SS phoned and faxed discharge orders to [facility]. Currently waiting COVID19 results of second test. SS will continue to follow for discharge planning.
--- NOTE | 2020-03-25 16:30 | NUR ---
SS following up with discharge planning. Second COVID19 result back. Pt COVID19 negative. [facility] unable to take tonight. Transportation scheduled with [facility] between 0800 and 0830 tomorrow, 03/26/2020. Pt, pt's RN, and pt's spouse notified.
[2020-03-25 19:00] VITALS: BP 142/64
[2020-03-25 23:00] VITALS: BP 99/58
[2020-03-26 03:00] VITALS: BP 94/52
[2020-03-26 06:25] LABS: CALCIUM 8.1 mg/dL (8.5-10.1); CREATININE 1.3 mg/dL (0.7-1.3); GFR 64.8; POTASSIUM 4.2 mmol/L (3.5-5.1)
[2020-03-26 07:00] VITALS: BP 147/60
[2020-03-26] MEDS: LACTOBACILLUS RHAMNOSUS GG 1 CAPSULE. PO SCH (07:43)
[2020-03-26] MEDS: ASPIRIN ENTERIC COATED 81 MG TABLET.DR. PO SCH (07:44)
[2020-03-26] MEDS: PANTOPRAZOLE 40 MG TABLET.DR. PO SCH (07:44)
[2020-03-26] MEDS: LISINOPRIL 5 MG TABLET. PO SCH (07:45)
[2020-03-26] MEDS: AMIODARONE HCL 200 MG TABLET. PO SCH (07:45)
[2020-03-26 07:52] VITALS: BP 129/69
[2020-03-26] MEDS: METOPROLOL SUCC 24HR ER 25 MG TAB.ER.24H. PO SCH (07:52)
--- NOTE | 2020-03-26 10:27 | PDOC3 ---
Discharge Summary Visit Information Date of Admission: Mar 18, 2020 Date of Discharge: Mar 26, 2020 Admitting Diagnosis: Shock Final Diagnosis Problems Medical Problems: (1) Kidney failure Status: Acute (2) Septic shock Status: Acute Brief Hospital Course Allergies Allergies Coded Allergies Type Severity Reaction Last Updated Verified No Known Drug Allergies 03/18/20 No Vital Signs Vital Signs Date Time Temp Pulse Resp B/P (MAP) Pulse Ox O2 Delivery O2 Flow Rate FiO2 03/26/20 08:00 Nasal Cannula 2.0 03/26/20 07:52 50 129/69 03/26/20 07:00 97.6 18 99 97.6 Lab Results Laboratory Tests Test 03/24/20 11:16 03/25/20 06:00 03/26/20 05:25 Coronavirus (PCR) Not detected (Not Detected) White Blood Count 10.3 x10^3/uL (4.0-11.0) Red Blood Count 3.95 x10^6/uL (4.30-5.70) Hemoglobin 13.6 g/dL (13.0-17.5) Hematocrit 39.9 % (39.0-53.0) Mean Corpuscular Volume 101 fL (79-100) Mean Corpuscular Hemoglobin 34 pg (25-35) Mean Corpuscular Hemoglobin Concent 34 g/dL (31-37) Red Cell Distribution Width 16.0 % (11.5-14.5) Platelet Count 369 x10^3/uL (140-400) Neutrophils (%) (Auto) 79 % (31-73) Lymphocytes (%) (Auto) 16 % (24-48) Monocytes (%) (Auto) 4 % (0-9) Eosinophils (%) (Auto) 1 % (0-3) Basophils (%) (Auto) 0 % (0-3) Neutrophils # (Auto) 8.1 x10^3/uL (1.8-7.7) Lymphocytes # (Auto) 1.7 x10^3/uL (1.0-4.8) Monocytes # (Auto) 0.4 x10^3/uL (0.0-1.1) Eosinophils # (Auto) 0.1 x10^3/uL (0.0-0.7) Basophils # (Auto) 0.0 x10^3/uL (0.0-0.2) Segmented Neutrophils % 68 % (35-66) Band Neutrophils % 3 % (0-9) Lymphocytes % 19 % (24-48) Monocytes % 5 % (0-10) Eosinophils % 3 % (0-5) Metamyelocytes % 2 % (0-0) Platelet Estimate Adequate (ADEQUATE) Large Platelets Present Anisocytosis Slight Sodium Level 146 mmol/L (136-145) 147 mmol/L (136-145) Potassium Level 4.4 mmol/L (3.5-5.1) 4.2 mmol/L (3.5-5.1) Chloride Level 112 mmol/L (98-107) 112 mmol/L (98-107) Carbon Dioxide Level 32 mmol/L (21-32) 32 mmol/L (21-32) Anion Gap 2 (6-14) 3 (6-14) Blood Urea Nitrogen 30 mg/dL (8-26) 23 mg/dL (8-26) Creatinine 1.4 mg/dL (0.7-1.3) 1.3 mg/dL (0.7-1.3) Estimated GFR (Cockcroft-Gault) 59.5 64.8 BUN/Creatinine Ratio 21 (6-20) Glucose Level 103 mg/dL (70-99) 93 mg/dL (70-99) Calcium Level 8.5 mg/dL (8.5-10.1) 8.1 mg/dL (8.5-10.1) Magnesium Level 1.8 mg/dL (1.8-2.4) Total Bilirubin 0.3 mg/dL (0.2-1.0) Aspartate Amino Transf (AST/SGOT) 62 U/L (15-37) Alanine Aminotransferase (ALT/SGPT) 77 U/L (16-63) Alkaline Phosphatase 72 U/L (46-116) KG-Dcq-E-Type Natriuretic Peptide 22719 pg/mL (0-449) Total Protein 5.6 g/dL (6.4-8.2) Albumin 1.5 g/dL (3.4-5.0) Albumin/Globulin Ratio 0.4 (1.0-1.7) Laboratory Tests Test 03/26/20 05:25 Sodium Level 147 mmol/L (136-145) Potassium Level 4.2 mmol/L (3.5-5.1) Chloride Level 112 mmol/L (98-107) Carbon Dioxide Level 32 mmol/L (21-32) Anion Gap 3 (6-14) Blood Urea Nitrogen 23 mg/dL (8-26) Creatinine 1.3 mg/dL (0.7-1.3) Estimated GFR (Cockcroft-Gault) 64.8 Glucose Level 93 mg/dL (70-99) Calcium Level 8.1 mg/dL (8.5-10.1) Brief Hospital Course Mr Shaw is a 74 yo male with past medical history of hypertension, dyslipidemia, CAD with stents and history of tobacco dependence. He presents to the ED with complaints of generalized weakness for the past 2 days. Patient originally tested positive for COVID on February 22 and he remained quarantined for 2 weeks after with his who also was tested positive. Patient was retested th is past week and it was negative. Patient's also stated that the patient has fallen twice in the past few days and has been appearing more lethargic, confused, and with loss of appetite. Patient also endorses vomiting some blood denies chest pain, abdominal pain, diarrhea, loss of smell, dysuria or bloody stools. 03/20: No acute events overnight. Patient seen and examined bedside. Continues to be on levo fed and vasopressin. Echo was completed yesterday showed ejection fraction of 30 to 35%. Pending evaluation by cardiology. Patient's chart, labs, images were reviewed and discussed with RN 8/2: No acute events overnight. Telemetry monitoring event showed atrial fibrillation with RVR. Patient required amiodarone bolus and drip was started. Patient's chart, labs, images were reviewed and discussed with RN 8/3: Seen bedside in ICU. Arterial line and blood pressure cuff with systolic blood pressure in the low 90s has just had his Levophed down titrated. Patient with sinus rhythm on monitor. Afebrile. WBC 18.5, BMP unchanged creatinine 2.2. 03/23: Transferred from ICU to [facility]VC overnight. WBC down to 16.5, CR 2. He is feeling much better. Off antibiotics currently. Still with little bit of abdominal fullness still on heparin gtt. had 3 formed stools in the last 24 hours. 03/24: Doing better, CR 1.7. Afebrile. Off antibiotics. Deconditioning needs SNF, SNF is requested repeat COVID-19 testing prior to acceptance. 03/25: Feeling significantly better, weaning [place] [address]. Less short of breath. WBC 10. Still weak, planning SNF on d/c Consults: GI, nephrology, cardiology, pulmonology Problem list: Sepsis concerning for CAP versus cardiogenic shock A. fib RVR Acute on chronic systolic CHF EF 30 to 35% Troponin elevation concerning for NSTEMI Hematemesis concerning for GI bleed Recent COVID positive infectionrepeat test was negative, COVID ruled out CRAIG due to vasomotor nephropathy Hypertension Dyslipidemia Severe protein calorie malnutrition Physical examination: CONSTITUTIONAL: He is a very pleasant gentleman. He is cooperative. He is lying in bed. He is comfortable. He is answering questions. HEENT: Pupils equal and reactive, but appears as early cataracts. He has normal conjunctivae. Oral cavity, pharynx was clear. NECK: Supple, with no JVD. LUNGS: Clear to auscultation, no wheeze.mild increased Resp rate HEART: S1, S2 mild tach. ABDOMEN: Soft, no guarding, no rebound. Positive but decreased bowel sounds. Mild distension EXTREMITIES: No clubbing, no edema. His extremities were cool to touch with decreased pulses bilaterally SCD. SKIN: Warm to touch without generalized rash. NEUROLOGIC: Nonfocal, answering questions. Moves all extremities. PSYCHIATRIC: Affect is very pleasant. Greater than 30 minutes spent on d/c to SNF Discharge Information Condition at Discharge: Improved Follow Up: Weeks Disposition/Orders: D/C to Another Facility Scheduled Amiodarone Hcl (Pacerone) 200 Mg Tablet, 200 MG PO DAILY for AFIB for 30 Days, #30 Prescribed by: CURTIS GORDON MD on 03/25/20 1420 Aspirin (Aspirin Ec) 81 Mg Tablet.dr, 81 MG PO DAILYWBKFT for CHF for 30 Days, #30 Prescribed by: CURTIS GORDON MD on 03/25/20 1420 Lisinopril (Lisinopril) 5 Mg Tablet, 5 MG PO DAILY for CHF for 30 Days, #30 Prescribed by: CURTIS GORDON MD on 03/25/20 1420 Metoprolol Succinate (Metoprolol Succinate ( Xl )) 25 Mg Tab.er.24h, 12.5 MG PO DAILY for CHF for 30 Days, #15 Prescribed by: CURTIS GORDON MD on 03/25/20 1420 Pantoprazole Sodium (Pantoprazole Sodium ) 40 Mg Tablet.dr, 40 MG PO DAILYAC for GERD for 30 Days, #30 Prescribed by: CURTIS GORDON MD on 03/25/20 1420 Simvastatin (Simvastatin) 20 Mg Tablet, 1 TAB PO QHS for HLD, #30 Ref 5 (Reported) Entered as Reported by: ELVIN BASS on 03/25/201337 Last Action: New Order on 03/25/201337 by ELVIN BASS Scheduled PRN Furosemide (Furosemide) 40 Mg Tablet, 40 MG PO DAILY PRN for CHF for 30 Days, #30 Prescribed by: CURTIS GORDON MD on 03/25/20 1420 Justicifation of Admission Dx: Justifications for Admission: Justification of Admission Dx: Yes Aspiration Pneumonia: Hemodynamic Instability CURTIS GORDON MD Mar 26, 2020 10:27
== END 2020-03-26 09:43 | DRG 871 ==
LOC: ER 16:14 → 1 WEST ICU 21:30 → 2 NORTH 03-22 15:43
PROVIDERS: ADMIT Internal Medicine; ATTEND Internal Medicine
PROC: 4A023N6 Measurement of Cardiac Sampling and Pressure, Right Heart, Percutaneous Approach (ICD-10-PCS; principal; 2020-03-23)
DX: A41.9 Sepsis, unspecified organism (principal); I21.4 Non-ST elevation (NSTEMI) myocardial infarction; I50.43 Acute on chronic combined systolic (congestive) and diastolic (congestive) heart failure; N17.0 Acute kidney failure with tubular necrosis; E43 Unspecified severe protein-calorie malnutrition; R57.0 Cardiogenic shock; R65.21 Severe sepsis with septic shock; J18.9 Pneumonia, unspecified organism; S06.0X9A Concussion with loss of consciousness of unspecified duration, initial encounter; I13.0 Hypertensive heart and chronic kidney disease with heart failure and stage 1 through stage 4 chronic kidney disease, or unspecified chronic kidney disease; I47.2 Ventricular tachycardia; J98.11 Atelectasis; K92.0 Hematemesis; D75.1 Secondary polycythemia; E78.00 Pure hypercholesterolemia, unspecified; E78.5 Hyperlipidemia, unspecified; F17.210 Nicotine dependence, cigarettes, uncomplicated; G62.9 Polyneuropathy, unspecified; G93.89 Other specified disorders of brain; I25.10 Atherosclerotic heart disease of native coronary artery without angina pectoris; I48.91 Unspecified atrial fibrillation; J44.9 Chronic obstructive pulmonary disease, unspecified; N18.9 Chronic kidney disease, unspecified; N20.0 Calculus of kidney; N40.0 Benign prostatic hyperplasia without lower urinary tract symptoms; R29.6 Repeated falls; W18.30XA Fall on same level, unspecified, initial encounter; Z82.49 Family history of ischemic heart disease and other diseases of the circulatory system; Z95.5 Presence of coronary angioplasty implant and graft; M19.90 Unspecified osteoarthritis, unspecified site; Z20.828 Contact with and (suspected) exposure to other viral communicable diseases
CPT/HCPCS: 36415; 36556; 51798; 70450; 71045; 71250; 74176; 76937; 80048; 80053; 80061; 80076; 81001; 82550; 82803; 83605; 83735; 83880; 84145; 84484; 85007; 85025; 85027; 85379; 85520; 85610; 85730; 87040; 87086; 93005; 93306; 93451; 93925; 96361; 96365; 96366; 96367; 96368; 99152; 99153; C1769; C1773; C1892; C9113; J0282; J0878; J1644; J1940; J2250; J2543; J3010; J3370; J3475; J3490; J7030; J7040; J7060; 97530-GO; 97535-GO; 99291-25; G0378; U0003-CS

== ENCOUNTER → 2020-03-29 | Outpatient (CLI) | payer MEDICARE ==
[2020-03-26 07:52] VITALS: BP 129/69
[~2020-03-29] MED LIST: AMIO200T7 PO; ASPI-886 PO; FURO40TA4 PO; LISI-338 PO; METO-239 PO; PANT40TA77 PO; SIMV20TA18 PO
[2020-03-29 13:06] LABS: BASO % 1 % (0-3); EOS % 1 % (0-3); HEMATOCRIT 41.2 % (39.0-53.0); HEMOGLOBIN 13.9 g/dL (13.0-17.5); LYMPH # 1.1 x10^3/uL (1.0-4.8); LYMPH % 25 % (24-48); MEAN CORPUSCULAR HEMOGLOBIN 34 pg (25-35); MEAN CORPUSCULAR HGB CONC 34 g/dL (31-37); MEAN CORPUSCULAR VOLUME 101 fL (79-100); MONO # 0.3 x10^3/uL (0.0-1.1); MONO % 6 % (0-9); NEUT % 67 % (31-73); PLATELET COUNT 323 x10^3/uL (140-400); RED BLOOD COUNT 4.07 x10^6/uL (4.30-5.70); RED CELL DISTRIBUTION WIDTH 15.8 % (11.5-14.5); WHITE BLOOD COUNT 4.5 x10^3/uL (4.0-11.0)
[2020-03-29 13:31] LABS: ALBUMIN 2.1 g/dL (3.4-5.0); ALBUMIN/GLOBULIN RATIO 0.5 (1.0-1.7); CALCIUM 8.2 mg/dL (8.5-10.1); CREATININE 1.5 mg/dL (0.7-1.3); GFR 54.9; MAGNESIUM 1.7 mg/dL (1.8-2.4); POTASSIUM 3.8 mmol/L (3.5-5.1); TOTAL BILIRUBIN 0.5 mg/dL (0.2-1.0); TOTAL PROTEIN 6.2 g/dL (6.4-8.2)
== END | disposition home or self-care (01) ==
LOC: SPEC 12:38
PROVIDERS: ATTEND Internal Medicine
DX: E78.5 Hyperlipidemia, unspecified (principal); N17.9 Acute kidney failure, unspecified; J69.0 Pneumonitis due to inhalation of food and vomit; J44.9 Chronic obstructive pulmonary disease, unspecified
CPT/HCPCS: 36415; 80053; 83735; 83880; 84134; 85025